=== PATIENT | male | born 1965 | race Caucasian/White ===

== ENCOUNTER 2018-12-31 23:37 | Emergency (ER) | payer BC, SELFPAY ==
[2018-12-31 23:38] VITALS: BP 148/74; BP 156/93; PULSE 80; PULSE 81; RESP 18; RESP 19; TEMP 35.9; O2SAT 96; BMI 48.7
--- NOTE | 2019-01-01 00:41 | ED.VIS.GEN ---
History of Present Illness Chief Complaint: Upper Extremity Injury Narrative: Patient is a 53-year-old male who presents with right shoulder pain. This is been present for 4 days. He reports a history 2 years ago when he was stepping out of a truck and was holding onto the With his right arm. However he had this had no recent injury. He had no injury at the onset of symptoms. His pain was worse tonight. It is sharp. It is relieved by resting it and abduction. He indicates his pain is right at his AC joint. No numbness tingling or weakness. Past Medical History - Allergies and Home Meds Allergies/Adverse Reactions: Allergies No Known Allergies Allergy (Verified 12/31/18 23:38) Primary Care Physician: Pascual Allen MD [Primary Care Provider] - Past Medical History: - - Hypertension Smoking Status: Former smoker Review of Systems All systems negative except as indicated General: Denies: Fever Cardiovascular: Denies: Chest pain Respiratory: Denies: Dyspnea Musculoskeletal: Reports: Extremity Pain Physical Exam Vital Signs/Narrative: Vital Signs Temp Pulse Resp BP Pulse Ox 12/31/18 23:38 96.7 F L 80 18 156/93 H 96 Inital Vital Signs reviewed: Yes General: Well nourished Head: Normocephalic Eyes: EOMI ENT: Moist mucous membranes Neck: Supple Cardiovascular: Regular rate, Regular rhythm Respiratory: No distress, CTA bilaterally Extremities: - - Right shoulder tenderness near the AC joint tenderness active full range of motion no deformity brisk capillary refill with normal sensation to light touch Skin: Normal color Neurological: Alert Diagnostic/Tx/Re-eval Impressions Shoulder X-Ray 01/01/19 00:45 IMPRESSION: Normal right shoulder. at 0122 Reported and signed by: Tong Johnson MD Electronically Signed: Tong Johnson MD at 1:20 EDT Tel , Service support , 01/01/19 00:45 Shoulder min 2 Views [RAD] Stat - Medical Decision Making Patient was given naproxen for pain. Right shoulder x-ray was obtained which is normal. Patient was advised on supportive care. He was advised to follow-up with his primary care physician. ED Disposition - Plan for ED Patient: Disposition: Home or Assisted Living Diagnosis: Shoulder pain Instructions: SHOULDER PAIN (Uncertain Cause) Prescriptions: Naproxen [Naprosyn] 500 mg PO BID #20 tab Prescription Printed Referrals: Pascual Allen MD [Primary Care Provider] -
--- NOTE | 2019-01-01 00:45 | RAD_ITS ---
HISTORY: INCREASING RT SHOULDER PAIN FOR THE PAST 4 DAYS Exam: Right Shoulder COMPARISON: None FINDINGS: # of images incl. paperwork: 4 XR Shoulder Min 2 Views: The humeral head is well-positioned within the glenoid fossa. No fracture or subluxation. The acromioclavicular joint is normal. The adjacent chest is unremarkable. RAD/Shoulder min 2 Views IMPRESSION: Normal right shoulder. at 0122 Reported and signed by: Tong Johnson MD Electronically Signed: Tong Johnson MD at 1:20 EDT Tel , Service support ,
[2019-01-01] MEDS: Naproxen 500 MG Tablet PO (00:48)
== END 2019-01-01 01:51 | disposition home or self-care (01) ==
PROVIDERS: Emergency Provider Emergency Medicine; Family Provider Internal Medicine; PCP Internal Medicine
DX: M25.511 Pain in right shoulder (principal); I10 Essential (primary) hypertension; Z79.899 Other long term (current) drug therapy; Z87.891 Personal history of nicotine dependence
CPT/HCPCS: 73030; 99283

== ENCOUNTER 2023-12-25 11:54 | Inpatient (IN) | payer OTHER, SELFPAY ==
[2023-12-25 11:54] VITALS: BP 106/74; PULSE 90; RESP 14; TEMP 36.8; O2SAT 95; BMI 46.2
--- NOTE | 2023-12-25 12:11 | EX.ED.DYSGE1 ---
HPI <CHERISE Callejas - Last Filed: 12/25/23 15:54> History of Present Illness Chief Complaint: Abn Labs Narrative Narrative: Patient is a 58-year-old male with history obesity, hypertension hyperlipidemia who presents to the emergency department for abnormal lab values. Patient has been having right upper quadrant abdominal pain for the last 2 months. The pain has been getting much more severe. Patient states it is now constant, he went to his physician yesterday, they did some laboratory values and had a outpatient CT scan scheduled. Patient was called by the doctor's office to state that he had a very high white blood cell count to go to the emergency department. Patient dates the pain is now unbearable, and he is here for evaluation. He denies any nausea or vomiting. Denies any fever or chills. PFSH <CHERISE Callejas - Last Filed: 12/25/23 15:54> [facility] Medical History (Updated 12/25/23 @ 16:[address] Daniel Villalpando, DO) Encounter for examination required by Department of Transportation (DOT) Home Medications ?Medication ?Instructions ?Recorded ?Last Taken ?Type lisinopril 20 mg tablet 20 mg PO DAILY 12/31/18 12/31/18 History naproxen 500 mg tablet 500 mg PO BID #20 tabs 01/01/19 Unknown Rx hydrochlorothiazide 25 mg tablet 25 mg PO DAILY 12/25/23 Unknown History Allergy/AdvReac Type Severity Reaction Status Date / Time No Known Allergies Allergy Verified 12/25/23 11:55 Social History Smoking Status: Former smoker ROS <CHERISE Callejas - Last Filed: 12/25/23 15:54> ROS ED ROS Narrative Constitutional: Negative for fever, chills, weight loss, weakness Eyes: Negative for vision loss, vision change, double vision ENT: Negative for any sore throat, ear pain, congestion Cardiovascular: Negative for any chest pain, tightness, palpitations Respiratory: Negative for any cough, sputum production, hemoptysis, dyspnea, dyspnea on exertion, orthopnea Gastrointestinal: Negative for any nausea, vomiting, diarrhea, constipation, blood in stool, blood in vomit. Positive for abdominal pain : Negative for any urinary frequency, dysuria, retention, blood in urine Muscle skeletal: Negative for any neck pain, back pain Neurological: Negative for any headache, syncope, dizziness Skin: Negative for any rashes, itching, abrasions, lacerations Psychiatric: Negative for any depression, anxiety, stress, suicidal ideation, homicidal ideation Hematologic: Negative for any excessive bruising, easy bleeding EXAM <CHERISE Callejas - Last Filed: 12/25/23 15:54> Physical Exam Narrative Exam Narrative: Vital signs reviewed. Patient appears uncomfortable, patient is constantly wincing, grabbing his right upper quadrant. HEET: Head normocephalic atraumatic, TMs clear bilaterally. Posterior pharynx is clear, moist mucous membranes. Nares clear bilaterally. Neck: Supple with no lymphadenopathy or tenderness. No signs of meningismus. Cardiac: Regular rate and rhythm no murmurs gallops or rubs, equal peripheral pulses bilaterally. Respiratory: Lungs clear to auscultation bilaterally. No chest tenderness. Abdomen: Patient's abdomen is firm, patient does have guarding, significant tenderness to any palpation to the epigastric area to the right upper to right lateral abdomen. Extremities: No peripheral edema, no signs of gross trauma or deformity. Active full range of motion of all extremities. Neuro: Cranial nerves II through XII intact, no focal neurological deficits. Skin: Clean dry and intact with no rash, purpura, petechiae, vesicles or pustules. Backs/flank: No CVA tenderness, no midline spinal tenderness, no deformity. Psych: Normal mood and affect. No SI, HI or acute psychosis. Const Vital Signs: 12/25/23 11:54 12/25/23 12:30 12/25/23 14:09 Temperature 98.3 F Temperature Source Temporal Pulse Rate 90 86 Respiratory Rate 14 15 Respiratory Pattern Normal Blood Pressure 106/74 129/91 H Blood Pressure Mean 84 103 Pulse Ox 95 Oxygen Delivery Method Room Air Positive well nourished, well developed and obese General Appearance ED: well developed Nutritional Appearance: obese <Dr. Daniel Villalpando DO - Last Filed: 12/25/23 16:14> Physical Exam Const Vital Signs: 12/25/23 11:54 12/25/23 12:30 12/25/23 14:09 Temperature 98.3 F Temperature Source Temporal Pulse Rate 90 86 Respiratory Rate 14 15 Respiratory Pattern Normal Blood Pressure 106/74 129/91 H Blood Pressure Mean 84 103 Pulse Ox 95 Oxygen Delivery Method Room Air MDM <Feliberto Kam [employer] - Last Filed: 12/25/23 15:54> [facility] Lab Data Labs: Laboratory Results - last 24 hr 12/25/23 12:20 WBC 23.1 H RBC 4.90 Hgb 11.8 L Hct 38.1 L MCV 77.8 L MCH 24.1 L MCHC 31.0 L RDW Std Deviation 47.5 H RDW Coeff of Tiffany 16.9 H Plt Count 369 MPV 9.1 Immature Gran % (Auto) 0.600 Neut % (Auto) 82.4 H Lymph % (Auto) 9.4 L Leslie % (Auto) 6.2 Eos % (Auto) 0.7 Baso % (Auto) 0.7 Absolute Neuts (auto) 19.0 H Absolute Lymphs (auto) 2.16 Nucleated RBC % 0 PT 15.3 H INR 1.2 Sodium 136 Potassium 4.0 Chloride 103 Carbon Dioxide 26.0 Anion Gap 8 BUN 34 H Creatinine 1.59 H Estim Creat Clear Calc 71.91 Est GFR (MDRD) Af Amer 58 L Est GFR (MDRD) Non-Af 48 L BUN/Creatinine Ratio 21.4 H Glucose 97 Lactic Acid 2.2 H* Calcium 12.7 H* Total Bilirubin 0.40 Direct Bilirubin 0.16 AST 40 H ALT 52 Alkaline Phosphatase 218 H Total Protein 7.8 Albumin 2.8 L Globulin 5.0 H Lipase 36 PTH Intact 8.3 L Radiography Diagnostic Testing: Clinical Impression(s) from Imaging Studies Abdomen/Pelvis CT 12/25/23 12:12 IMPRESSION: Hepatomegaly. Elevation of the right hemidiaphragm. Multiple masses in the liver. Large mass in the region of the cecum. A neoplastic process with metastatic deposits should be ruled out. Small right pleural effusion. Electronically Signed: Zana Amezquita MD at 13:54 EDT , Treatment and Re-Evaluation :: Differential diagnosis includes however is not limited to: Acute cholecystitis, free air, bowel obstruction, mass, pancreatitis,, hernia Patient does appear to be in mild to moderate amount of distress secondary to pain in his right upper quadrant. Presenting to the emergency department for elevated white blood count, ongoing abdominal pain. Secondary the patient's discomfort, patient will receive a CT scan of the abdomen pelvis IV contrast, IV fluids, Zofran and morphine will be ordered. Patient will receive a full abdominal lab workup including CBC BMP liver panel lipase as well as lactic acid. All radiologic examinations were read, reviewed by the emergency department attending. From these reads, a plan of care will be put in place. Patient will need to be reevaluated. Patient's laboratory values show a significant leukocytosis with white blood count of 23.1, hemoglobin 11.8, patient's chemistries show a BUN of 34, creatinine of 1.59, lactic acid slightly elevated 2.2 with a calcium of 12.7, AST of 40, alkaline phosphatase of 218, lipase was negative. Patient was given IV morphine, IV Zofran, CT scan of the abdomen pelvis will be obtained. Patient did receive 1 blood culture. Patient will be redosed with IV morphine. Patient CT scan of the abdomen pelvis shows hepatomegaly, elevation of the right Heema diaphragm, multiple masses in the liver. Large mass in the region of the cecum, a neoplastic process with metastatic deposits should be ruled out. Small right pleural effusion. I did speak with the patient regarding this, patient will need to be admitted to hospital for pain control. I will reach out to the hospitalist. Hospital admit the patient. <Dr. Daniel Villalpando, DO - Last Filed: 12/25/23 16:14> [facility] Lab Data Attestation: I reviewed the patient's lab results. Labs: Laboratory Results - last 24 hr 12/25/23 12:20 WBC 23.1 H RBC 4.90 Hgb 11.8 L Hct 38.1 L MCV 77.8 L MCH 24.1 L MCHC 31.0 L RDW Std Deviation 47.5 H RDW Coeff of Tiffany 16.9 H Plt Count 369 MPV 9.1 Immature Gran % (Auto) 0.600 Neut % (Auto) 82.4 H Lymph % (Auto) 9.4 L Leslie % (Auto) 6.2 Eos % (Auto) 0.7 Baso % (Auto) 0.7 Absolute Neuts (auto) 19.0 H Absolute Lymphs (auto) 2.16 Nucleated RBC % 0 PT 15.3 H INR 1.2 Sodium 136 Potassium 4.0 Chloride 103 Carbon Dioxide 26.0 Anion Gap 8 BUN 34 H Creatinine 1.59 H Estim Creat Clear Calc 71.91 Est GFR (MDRD) Af Amer 58 L Est GFR (MDRD) Non-Af 48 L BUN/Creatinine Ratio 21.4 H Glucose 97 Lactic Acid 2.2 H* Calcium 12.7 H* Total Bilirubin 0.40 Direct Bilirubin 0.16 AST 40 H ALT 52 Alkaline Phosphatase 218 H Total Protein 7.8 Albumin 2.8 L Globulin 5.0 H Lipase 36 PTH Intact 8.3 L Radiography Diagnostic Testing: Clinical Impression(s) from Imaging Studies Abdomen/Pelvis CT 12/25/23 12:12 IMPRESSION: Hepatomegaly. Elevation of the right hemidiaphragm. Multiple masses in the liver. Large mass in the region of the cecum. A neoplastic process with metastatic deposits should be ruled out. Small right pleural effusion. Electronically Signed: Zana Amezquita MD at 13:54 EDT , Treatment and Re-Evaluation :: Differential diagnosis includes however is not limited to: Acute cholecystitis, free air, bowel obstruction, mass, pancreatitis,, hernia Patient does appear to be in mild to moderate amount of distress secondary to pain in his right upper quadrant. Presenting to the emergency department for elevated white blood count, ongoing abdominal pain. Secondary the patient's discomfort, patient will receive a CT scan of the abdomen pelvis IV contrast, IV fluids, Zofran and morphine will be ordered. Patient will receive a full abdominal lab workup including CBC BMP liver panel lipase as well as lactic acid. All radiologic examinations were read, reviewed by the emergency department attending. From these reads, a plan of care will be put in place. Patient will need to be reevaluated. Patient's laboratory values show a significant leukocytosis with white blood count of 23.1, hemoglobin 11.8, patient's chemistries show a BUN of 34, creatinine of 1.59, lactic acid slightly elevated 2.2 with a calcium of 12.7, AST of 40, alkaline phosphatase of 218, lipase was negative. Patient was given IV morphine, IV Zofran, CT scan of the abdomen pelvis will be obtained. Patient did receive 1 blood culture. Patient will be redosed with IV morphine. Patient CT scan of the abdomen pelvis shows hepatomegaly, elevation of the right Heema diaphragm, multiple masses in the liver. Large mass in the region of the cecum, a neoplastic process with metastatic deposits should be ruled out. Small right pleural effusion. I did speak with the patient regarding this, patient will need to be admitted to hospital for pain control. I will reach out to the hospitalist. Hospital admit the patient. Attending note: I have personally performed a face to face assessment of the patient and have reviewed the DELTA note. I personally made/approved the management plan and take responsibility for the patient management. I performed a substantive portion of the visit including all aspects of the following. My bai findings include: Referred him from PCP for elevated white count after being seen yesterday with lab work. He has been having upper abdominal pain for the past 2 months. Reporting weight loss. No fevers or chills. No abdominal surgeries. He had a plan outpatient CT scan. No history of colonoscopies however had Cologuard in the past. Denies bloody stools. Exams uncomfortable tender palpation epigastric right upper quadrant. Nontoxic. IV established for abdominal labs, fluids morphine was given. CT scan ordered noted concerning for multiple masses of the liver including a cecal mass. Additional pain medications required. With intractable pain with new concerns for cancer, discussed with hospitalist for admission. Discharge Plan Dx/Rx/DC Orders Clinical Impression: Liver masses, Cecum mass, Intractable abdominal pain, Leukocytosis Disposition Disposition: Acute Care Hospital [facility] Discharge Date/Time: 12/25/23 15:55
--- NOTE | 2023-12-25 12:12 | CT_ITS ---
STUDY: CT ABDOMEN AND PELVIS WITH CONTRAST REASON FOR EXAM: Male, 58 years old. 2 month history of right upper quadrant pain. Elevated white cell count. RADIATION DOSAGE (If Supplied By Facility): CTDIvol = ( 27.03 ) mGy, DLP = ( 2604.76 ) mGycm TECHNIQUE: Transaxial images were obtained from the dome of the diaphragm to the symphysis pubis without oral contrast. IV 100mL Isovue-370 was administered. Sagittal and coronal images were reconstructed. Individualized dose optimization techniques were used for this CT. COMPARISON: None. FINDINGS: Elevation of the right hemidiaphragm. Small right pleural effusion. Calcified granuloma in the right lower lobe. Calcified right hilar lymph nodes. Minimal coronary calcification. Diffuse hepatomegaly. There are several large hypodense masses within the liver. There is also evidence of a 2.6 cm x 2.4 cm nodule in the superior medial aspect of the right lobe of the liver. There is fatty infiltration of the liver. Normal gallbladder and extrahepatic biliary system. There are multiple benign calcified granulomata of the spleen. Normal pancreas. Normal bilateral adrenal glands. Normal right kidney. Normal left kidney. Normal visualized stomach. Normal small intestine. There is evidence of a 7 cm x 11.1 cm x 8.7 cm heterogeneous mass in the cecum. A primary neoplastic process should be ruled out with metastasis to the liver. The appendix is visualized and appears normal. Normal abdominal aorta. Normal inferior vena cava. Normal retroperitoneum. Normal urinary bladder. There is a small umbilical hernia containing fat. There are diffuse degenerative changes of the visualized lumbar spine. CT/Abdomen/Pelvis W IV Cont ONLY IMPRESSION: Hepatomegaly. Elevation of the right hemidiaphragm. Multiple masses in the liver. Large mass in the region of the cecum. A neoplastic process with metastatic deposits should be ruled out. Small right pleural effusion. Electronically Signed: Zana Amezquita MD at 13:54 EDT ,
[2023-12-25] MEDS: 0.9% Normal Saline (1000mL) 1,000 ML 999 ML IV (12:19)
[2023-12-25] MEDS: Morphine 4 MG/ML Syringe IV ×2 (12:20→14:13)
[2023-12-25] MEDS: Ondansetron 4 MG/2 ML Vial IV ×2 (12:20→21:31)
[2023-12-25 12:30] LABS: Absolute Lymphocyte Count 2.16 X10^3/uL (0.83-4.51); Basophil# 0.16 X10^3/uL; Basophil% 0.7 % (0-1); Eosinophil# 0.17 X10^3/uL; Eosinophils% 0.7 % (0-5); Hematocrit 38.1 % (40-54); Hemoglobin 11.8 g/dL (13.0-16.5); Lymphocyte # 2.16 X10^3/ul (0.83-4.51); Lymphocyte % 9.4 % (19-41); Mean Corpuscular Hgb 24.1 pg (27.0-32.0); Mean Corpuscular Volume 77.8 fL (80-94); Mean Platelet Vol. 9.1 fl (6.2-12.0); Monocyte# 1.43 X10^3/uL; Monocyte% 6.2 % (0-10); NRBC Flagged by Analyzer 0 % (0-5); Neutrophil # 19.04 X10^3/uL (2.7-7.7); Neutrophil % 82.4 % (47-70); Platelet Count 369 K/mm3 (150-450); RBC Distribution Width CV 16.9 % (11.6-14.6); RBC Distribution Width SD 47.5 fl (35.1-43.9); White Blood Count 23.1 K/mm3 (4.4-11.0)
[2023-12-25 12:57] LABS: AST(SGOT) 40 U/L (15-37); Alanine Aminotransfer ALT/SGPT 52 U/L (16-61); Albumin, Serum 2.8 g/dL (3.2-5.0); Alkaline Phosphatase 218 U/L (45-117); Anion Gap 8 (5-15); BUN 34 mg/dL (7-18); BUN/Creat Ratio 21.4 RATIO (10-20); Bilirubin, Direct 0.16 mg/dL (0.00-0.30); Calcium,Total 12.7 mg/dL (8.5-10.1); Chloride 103 mmol/L (98-107); Creatinine, Serum 1.59 mg/dL (0.70-1.30); EST Glomerular Filtration Rate 48 mL/min (>60); Est Glom Filt Rate - Afr Amer 58 mL/min (>60); Estimated Creatinine Clearance 71.91 ml/min; Glucose 97 mg/dL (74-106); Lactic Acid 2.2 mmol/L (0.4-1.9); Lipase 36 U/L (13-75); Protein, Total 7.8 g/dL (6.4-8.2); Sodium Level 136 mmol/L (136-145)
[2023-12-25 13:28] LABS: International Normalized Ratio 1.2; Prothrombin Time (Protime)PT. 15.3 SECONDS (11.7-14.9)
[2023-12-25 14:09] VITALS: BP 129/91; PULSE 86; RESP 15
--- NOTE | 2023-12-25 15:00 | HP.PCM.HOS_ITS ---
HPI - General General Date of Service: 12/25/23 Chief Complaint: Abdominal Pain HPI Narrative NADEEN DONAHUE, is a 58-year-old male history of obesity, hypertension, hyperlipidemia who presented [facility] ED due to lab values. Patient is in having right upper quadrant abdominal pain for 2 months and has been getting more and more severe and is now constant. Went to PCP yesterday and they checked his labs and he had an outpatient CT scan scheduled however given his very high white blood cell count he was advised to go to the emergency department. Pain is now unbearable and he is here for evaluation. In the ED patient has white blood cell count of 23 with left shift, also has hypercalcemia with calcium of 12.[address] obtained which showed liver masses and cecal mass. Hospitalist contacted for admission for pain control. Patient evaluated at bedside, reports that he has had some weight loss and this worsening pain over 2 months with constipation which is abnormal for him, last had small bowel movement last night. Aside from the pain denies any fevers or chills, no burning on urination or diarrhea, no cough, no lesions, no other infectious symptoms whatsoever. [facility] Medical History (Updated 12/25/23 @ 15:[address] Naina Avelar MD) Encounter for examination required by Department of Transportation (DOT) Home Medications ?Medication ?Instructions ?Recorded ?Last Taken ?Type lisinopril 20 mg tablet 20 mg PO DAILY 12/31/18 12/31/18 History naproxen 500 mg tablet 500 mg PO BID #20 tabs 01/01/19 Unknown Rx Allergy/AdvReac Type Severity Reaction Status Date / Time No Known Allergies Allergy Verified 12/25/23 11:55 Social History Smoking Status: Former smoker ROS ROS Narrative General: Denies fever/chills HENT: Denies headache, denies stuffy nose, denies sore throat EYES: Denies changes in vision Resp: Denies cough, denies shortness of breath Cardiac: Denies chest pain GI: No nausea or vomiting, some right upper quadrant abdominal pain, constipation : Denies changes in urination Extremity: Denies swelling MSK: Denies weakness Neuro: Denies any numbness/tingling Heme: Denies any bleeding or bruising Skin: Denies rashes Psychiatric: No complaints voiced Vital Signs Vital Signs Vital Signs: 12/25/23 11:54 12/25/23 12:30 12/25/23 14:09 Temperature 98.3 F Temperature Source Temporal Pulse Rate 90 86 Respiratory Rate 14 15 Respiratory Pattern Normal Blood Pressure 106/74 129/91 H Blood Pressure Mean 84 103 Pulse Ox 95 Oxygen Delivery Method Room Air Weight Weight: 141.9 kg Body Mass Index (BMI) 46.2 Physical Exam Narrative General: Alert, oriented, no apparent distress HEENT: Atraumatic, normocephalic Eyes: Anicteric, normal conjunctiva, extraocular movements grossly intact Neck: Supple Respiratory: Clear to auscultation bilaterally, normal respiratory effort Cardiovascular: Regular rate and rhythm GI: Significant tenderness in right upper quadrant, no rebound, guarding, rigidity Extremities: No edema Musculoskeletal: Moving all extremities Neuro: No overt focal neurological deficits Skin: No rashes appreciated Psych: Cooperative Results Lab / Micro Data 12/25/23 12:20 12/25/23 12:20 Labs: Laboratory Results - last 24 hr 12/25/23 12:20: WBC 23.1 H, RBC 4.90, Hgb 11.8 L, Hct 38.1 L, MCV 77.8 L, MCH 24.1 L, MCHC 31.0 L, RDW Std Deviation 47.5 H, RDW Coeff of Tiffany 16.9 H, Plt Count 369, MPV 9.1, Immature Gran % (Auto) 0.600, Neut % (Auto) 82.4 H, Lymph % (Auto) 9.4 L, [place] % (Auto) 6.2, Eos % (Auto) 0.7, Baso % (Auto) 0.7, Absolute Neuts (auto) 19.0 H, Absolute Lymphs (auto) 2.16, Nucleated RBC % 0, PT 15.3 H, INR 1.2, Sodium 136, Potassium 4.0, Chloride 103, Carbon Dioxide 26.0, Anion Gap 8, BUN 34 H, Creatinine 1.59 H, Estim Creat Clear Calc 71.91, Est GFR (MDRD) Af Amer 58 L, Est GFR (MDRD) Non-Af 48 L, BUN/Creatinine Ratio 21.4 H, Glucose 97, Lactic Acid 2.2 H*, Calcium 12.7 H*, Total Bilirubin 0.40, Direct Bilirubin 0.16, AST 40 H, ALT 52, Alkaline Phosphatase 218 H, Total Protein 7.8, Albumin 2.8 L, Globulin 5.0 H, Lipase 36 Imaging Radiology Impression Abdomen/Pelvis CT 12/25/23 12:12 IMPRESSION: Hepatomegaly. Elevation of the right hemidiaphragm. Multiple masses in the liver. Large mass in the region of the cecum. A neoplastic process with metastatic deposits should be ruled out. Small right pleural effusion. Electronically Signed: Zana Amezquita MD at 13:54 EDT , Assessment & Plan Assessment/Plan (1) Liver masses: PLAN: Plan #RUQ abdominal pain 2/2 Liver masses and cecal mass -Liver masses and cecal mass seen on CT scan -Discussed with Dr. Arellano with oncology on-call -It was recommended to order CT-guided biopsy, focus on pain control, consult surgery to do lower endoscopy as he may ultimately require surgery as well and he felt that this would be the preferred service to be able to do both necessary -Discussed with surgery on-call, will prep patient tonight for possible colonoscopy tomorrow -CT-guided biopsy also ordered -Pain control # Hypercalcemia -Possibly malignant in nature given liver and cecal masses -IV fluids -Check PTH, vitamin D, Phos -Recheck calcium later this evening after fluids, if remains elevated may need zalendronate or formulary equivalent -Presently not having symptoms aside from some constipation which may be due to his mass # Leukocytosis -Unclear etiology, has leukocytosis but has 0 infectious symptoms -IV fluids, will check blood culture and UA/ucx but will hold off on any empiric antibiotics unless infectious signs or symptoms prevent themselves or culture positive # Elevated creatinine, GAVINO versus CKD -Creatinine 1.59 but unclear baseline -Does have elevated BUN so suspect this may be higher than baseline -IV fluids -Repeat in a.m. -Avoid nephrotoxic agents #Morbid obesity -BMI documented as 46.2 kg/m? at time of admission -Complicates treatment, prognosis, outcomes -Recommend weight loss and lifestyle changes # Documented history of hypertension -Med rec not yet verified -Previously was on lisinopril, patient still on this will hold given elevated creatinine Time spent in the patient's overall evaluation,decision-making process, review of diagnostic data, adjustment of management, discussion with other providers, nursing nursing and ancillary staff involved in patient's care documentation, 57 minutes Charges/Coding Visit Charges Inpatient E&M: 65435 Init Hosp L2
[2023-12-25 15:33] VITALS: BP 117/62; PULSE 89; RESP 14; TEMP 36.6; O2SAT 98
[2023-12-25 15:35] VITALS: BP 117/62; PULSE 89; RESP 14; TEMP 36.7; O2SAT 89
[2023-12-25 16:01] LABS: PTHIN 8.3 pg/mL (18.4-80.1)
[2023-12-25 16:13] VITALS: BMI 46.2
[2023-12-25 16:24] LABS: Reflex Lactate? Y
[2023-12-25 16:25] LABS: Phosphorus 3.2 mg/dL (2.5-4.9)
[2023-12-25 16:39] VITALS: BP 125/51; PULSE 86; RESP 16; TEMP 36.5; O2SAT 94
[2023-12-25 17:15] LABS: Lactic Acid 1.9 mmol/L (0.4-1.9); Vitamin D,25 Hydroxy 32.9 ng/mL
[2023-12-25] MEDS: 0.9% Normal Saline (1000mL) 1,000 ML 100 ML IV (18:29)
[2023-12-25] MEDS: Bisacodyl 5 MG Tablet 20 MG PO (18:32)
[2023-12-25] MEDS: 0.9% Saline Lock 10 ML Syringe IV ×2 (18:42→21:31)
[2023-12-25] MEDS: Acetaminophen 325 MG Tablet 650 MG PO (18:44)
--- NOTE | 2023-12-25 19:06 | CON.PCM.SX_ITS ---
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 He was admitted for pain control. CT-guided biopsy of the liver masses has been recommended. Surgical consult was obtained regarding cecal mass and possible colonoscopy. At this point I would recommend initiating bowel prep which is just beginning this evening. Given the fact that he only produces a bowel movement every 3 to 4 days, I am somewhat skeptical whether or not he will be able to be sufficiently prepped for colonoscopy for tomorrow. We will reassess his progress in a.m. regarding his bowel prep and then make a decision as far as scheduling colonoscopy. I would certainly agree with doing a CT-guided biopsy of his liver masses. Tissue diagnosis from the liver may be sufficient to establish the diagnosis. Will continue to follow and advise accordingly. HPI Consult Data Date of Consult: 12/25/23 HPI Narrative Reason for Consultation: Cecal mass/liver metastasis HPI Narrative: NADEEN DONAHUE, is a 58 M who presents to the emergency room earlier today due to right sided abdominal pain and abnormal lab values. Patient has been having progressively worsening abdominal pain on the right side of his abdomen for the past several months. He states that he really has not been able to eat and is actually lost about 40 pounds. Patient's pain seems to be much more severe and constant. Patient saw his PCP recently who ordered some blood work and noted a elevated white blood cell count. He was then advised to present to the emergency room. He was seen evaluated by the ER staff. He underwent blood work that showed a white count of 23,000 as well as an elevated calcium level. CT scan showed multiple large liver masses as well as a very large cecal mass. He was subsequently admitted. Hematology oncology was consulted. Surgery consult was obtained for the cecal mass and possible colonoscopy as well. CT-guided biopsy of the liver masses were also recommended by oncology. Patient is currently stable at bedside. He continues to have right sided abdominal pain which seems to be reasonably well-controlled at the present time as he appeared fairly comfortable. He states that his bowel movements normally have been daily however more recently he has a bowel movement about every 3 to 4 days. He denies any fevers or chills. [facility] Medical History Encounter for examination required by Department of Transportation (DOT) Home Medications ?Medication ?Instructions ?Recorded ?Last Taken ?Type lisinopril 20 mg tablet 20 mg PO DAILY 12/31/18 12/31/18 History naproxen 500 mg tablet 500 mg PO BID #20 tabs 01/01/19 Unknown Rx hydrochlorothiazide 25 mg tablet 25 mg PO DAILY 12/25/23 Unknown History Allergy/AdvReac Type Severity Reaction Status Date / Time No Known Allergies Allergy Verified 12/25/23 11:55 Family History unable to obtain Social History Smoking Status: Former smoker Physical Exam Const alert, oriented x3 and no apparent distress General Appearance: cooperative Nutritional Appearance: obese HEENT normocephalic Eyes PERRL GI GI Narrative: Abdomen is soft and quite obese. He has moderate tenderness all throughout the right side of his abdomen. No rebound or guarding. Lab / Micro Data 12/25/23 12:20 12/25/23 12:20 Labs: Laboratory Results - last 24 hr 12/25/23 12:20: WBC 23.1 H, RBC 4.90, Hgb 11.8 L, Hct 38.1 L, MCV 77.8 L, MCH 24.1 L, MCHC 31.0 L, RDW Std Deviation 47.5 H, RDW Coeff of Tiffany 16.9 H, Plt Count 369, MPV 9.1, Immature Gran % (Auto) 0.600, Neut % (Auto) 82.4 H, Lymph % (Auto) 9.4 L, [place] % (Auto) 6.2, Eos % (Auto) 0.7, Baso % (Auto) 0.7, Absolute Neuts (auto) 19.0 H, Absolute Lymphs (auto) 2.16, Nucleated RBC % 0, PT 15.3 H, INR 1.2, Sodium 136, Potassium 4.0, Chloride 103, Carbon Dioxide 26.0, Anion Gap 8, BUN 34 H, Creatinine 1.59 H, Estim Creat Clear Calc 71.91, Est GFR (MDRD) Af Amer 58 L, Est GFR (MDRD) Non-Af 48 L, BUN/Creatinine Ratio 21.4 H, Glucose 97, Lactic Acid 2.2 H*, Calcium 12.7 H*, Phosphorus 3.2, Total Bilirubin 0.40, Direct Bilirubin 0.16, AST 40 H, ALT 52, Alkaline Phosphatase 218 H, Total Protein 7.8, Albumin 2.8 L, Globulin 5.0 H, Lipase 36, PTH Intact 8.3 L 12/25/23 16:35: Lactic Acid 1.9, Vitamin D 25-Hydroxy 32.9 Imaging Radiology Impression Abdomen/Pelvis CT 12/25/23 12:12 IMPRESSION: Hepatomegaly. Elevation of the right hemidiaphragm. Multiple masses in the liver. Large mass in the region of the cecum. A neoplastic process with metastatic deposits should be ruled out. Small right pleural effusion. Electronically Signed: Zana Amezquita MD at 13:54 EDT , Charges/Coding Visit Charges Inpatient E&M: 66839 Init Hosp L3
[2023-12-25 19:08] LABS: Anion Gap 7 (5-15); BUN 33 mg/dL (7-18); Calcium,Total 12.5 mg/dL (8.5-10.1); Chloride 102 mmol/L (98-107); EST Glomerular Filtration Rate 51 mL/min (>60); Est Glom Filt Rate - Afr Amer 62 mL/min (>60); Estimated Creatinine Clearance 76.22 ml/min; Glucose 124 mg/dL (74-106); Potassium 3.8 mmol/L (3.5-5.1); Sodium Level 135 mmol/L (136-145)
[2023-12-25] MEDS: Polyethylene Glycol 3350 BOWEL PREP PO (19:56)
--- NOTE | 2023-12-25 19:58 | PCM.HOSP.N ---
Hospitalist Note Patient with continued moderate hypercalcemia despite IV fluids, will give dose of 60 of pamidronate
[2023-12-25 20:14] VITALS: BP 105/59; PULSE 88; RESP 16; TEMP 36.6; O2SAT 94
[2023-12-25] MEDS: Morphine 2 MG/ML Syringe IV (21:31)
[2023-12-25] MEDS: Pamidronate Disodium 60 MG in 0.9% Normal Saline (500mL Bag) 500 ML 250 MG IV (21:31)
[2023-12-25] MEDS: Enoxaparin 40 MG/0.4 ML Syringe SC (21:37)
[2023-12-25] MEDS: Senna/Docusate Sodium 1 Tablet 2 TABLET PO (21:37)
[2023-12-26] VITALS (18 sets, daily range): BP systolic 98–134; BP diastolic 45–64; PULSE 62–110; RESP 14–32; TEMP 36.4–37.2; O2SAT 92–99
--- NOTE | 2023-12-26 | ASPIGT_PTH ---
PATIENT: NADEEN DONAHUE LOC: MS3 U#:[id number] AGE/SX: 58/M [place] [facility] [place]: Dr. Gus Baez DO : 1965 BED: 1 DIS: 12/27/2023 SPEC #: [id number] RECD: 12/26/23 11:48 STATUS: VENICE REQ #: [id number] TONEY: 12/26/23 00:[address]: Aubrey Dixon DEPT: SURGICAL PATHOLOGY RECD BY: Gene Juarez ENTERED: 12/26/23 11:48 SP TYPE: ASP RAD OTHR DR: MD Dr. Santy Starkey MD Dr. 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 See comment. 01/02/2024 COMMENT The specimen is evaluated at the time of biopsy by Dr. Daniels. Immediate Evaluation = Atypical cells noted. Immunohistochemistry ([id number]) supports the above diagnosis. The specimen is sent to [facility] for expert opinion, reviewed by Dr. Jones and the above diagnosis is rendered. Dr. Jones also commented the immunohistochemical profile is not specific for tumor phenotype or origin. The complete report is viewable in the patient's EMR. Molecular studies on the tumor be performed if clinically indicated. Please notify the laboratory if it is needed. Case has been reviewed in consultation with Dr. Bishop who concurs with the above diagnosis. IDC:AM MICROSCOPIC DESCRIPTION Slides are reviewed. GROSS DESCRIPTION Received in fixative is one container labeled with the patient's name and designated Liver biopsy. The specimen consists of multiple irregular fragments of light lou soft tissue that in aggregate measure 1.0 x 0.2 x <0.1cm. The specimen is totally submitted in one cassette. SJ.mr 12/26/2023 TC:0 CPT:91070,56060
--- NOTE | 2023-12-26 | FLU_PTH ---
PATIENT: NADEEN DONAHUE LOC: MS3 U#:[id number] AGE/SX: 58/M ROOM: [facility] [place]12/25/[address]: Dr. Gus Baez DO : 1965 BED: 1 DIS: 12/27/2023 SPEC #: [id number] RECD: 12/26/23 11:48 STATUS: VENICE REQ #: [id number] TONEY: 12/26/23 00:[address]: Aubrey Dixon DEPT: CYTOLOGY RECD BY: Gene Juarez ENTERED: 12/26/23 11:49 SP TYPE: Fluid OTHR DR: MD Dr. Santy Starkey MD Dr. Victor Velasquez, MD Tissues: Liver, NOS Procedures: Special Stain Group II Surgery Specimen Level IV Surgery Specimen Level V Cytospin Fluid HEADER OPERATION: CT guided liver biopsy PRE-OP DIAGNOSIS: Liver mass TISSUE SUBMITTED: 18 gauge x 5 cores DIAGNOSIS CYTOLOGY Liver mass fluid (cytospin and cellblock): Rare necrotic tumor cells noted in the background of abscess formation. See comment. 01/02/2024 COMMENT Please also make reference to additional specimen [id number] liver mass, core biopsy with diagnosis of metastatic poorly differentiated malignant neoplasm with epithelioid and spindle cell features, high grade sarcoma. Case has been reviewed in consultation with Dr. Bishop who concurs with the above diagnosis. IDC:AM CYTOLOGY STUDY Slides are reviewed. CYTOLOGY GROSS Received is 50 ml of red cloudy fluid labeled with the patient's name and and designated per the requisition as Liver mass. Submitted for cytology preparation including cell block. Mr 12/26/2023 TC:0 CPT: 24597,91476
--- NOTE | 2023-12-26 | IMM_PTH ---
PATIENT: NADEEN DONAHUE LOC: MS3 U#:[id number] AGE/SX: 58/M [place] [facility] [place]: Dr. Gus Baez DO : 1965 BED: 1 DIS: 12/27/2023 SPEC #: [id number] RECD: 12/29/23 10:50 STATUS: SOUKareen REQ #: [id number] TONEY: 12/26/23 00:[address]: Gus Baez DEPT: IMMUNOHISTOCHEMISTRY RECD BY: Alex Ceron ENTERED: 12/29/23 10:51 SP TYPE: IMMUNO OTHR DR: MD Dr. Naina Mahmood MD Dr. Steven A Wanek, MD Dr. Victor Velasquez, MD Tissues: Liver, NOS Procedures: SMA (add) CD31 (add) CD34 (add) CK8 (add) DESMIN (add) KI-67 (add) P53 (add) Vimentin (add) FACTOR VIII (add) Pankeratin (initial) MELAN-A (add) Uroplakin III (add) S-100 (add) PHYSICIAN & INSTITUTION [place] [id number] SPECIMEN INFORMATION: Tissue Source: Liver mass Clinical Info: Liver mass Specimen Number: [id number] CPT code: 87669,08200s73 METHODOLOGY: Deparaffinized sections of prefer/formalin-fixed tissue or PAP/DQ stained slides are incubated with monoclonal/polyclonal antibodies/oligonucleotide probes. Localization is made via biotin free immunoperoxidase method. Appropriate controls are performed and reacted as expected. Results on target cell population are indicated in the following table: RESULTS: ANTIBODY / CLONE RESULT AE1-3 (AE1/AE3/PCK26) negative CK8 (28bdodS73) negative Vimentin (V9) positive CD31 (AICHA/70A) negative Factor VIII (R Ag) negative CD34 (QBEnd-10) negative Actin (1A4) negative Desmin (CE-R-11) negative Melan A (A103) negative S-100 (4C4.9) negative P53 (DO-7) negative (null pattern) Ki-67 (30-9) positive (80 to 90%) Uroplakin III (SP73) negative These tests were developed and their performance characteristics determined by [facility]. They may not have been cleared or approved by the U.S. Food and Drug Administration. The FDA has determined that such clearance or approval is not necessary. The above immunohistochemical/dualISH markers are ordered and reviewed by the Pathologist. 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 See comment. COMMENT: The specimen was [facility] and above diagnosis is rendered. Complete report is viewable in the patient's EMR. SJOdinmr 01/02/2024
[2023-12-26 00:14] LABS: Color, Urine Yellow (Yellow); Glucose, Dipstick Normal (Normal); Ketone-Dipstick Negative (Negative); Leukocyte Esterase-Dipstick 25 /ul (Negative); Nitrite-Dipstick Negative (Negative); Occult Blood-Urine 25 /ul (Negative); Protein-Dipstick 30 mg/dl (Negative); Urine Bilirubin Dipstick Negative (Negative); Urine Clarity Clear (Clear); Urine Urobilinogen Normal (Normal)
[2023-12-26 00:39] LABS: Bacteria 3+ /hpf (None Seen); Fine Granular Cast- Urine 0-5 SEEN /lpf (0-5); Hyaline Cast 0-5 SEEN /lpf (0-5); Mucous, Urine 1+ /hpf (<or=2+); Red Blood Cells-Urine 5-10 SEEN /hpf (0-5); Squamous Epithelial Cells - UA 10-25 SEEN /hpf (0-5); White Blood Cells 5-10 SEEN /hpf (0-5)
[2023-12-26] MEDS: Acetaminophen 325 MG Tablet 650 MG PO (02:28)
[2023-12-26] MEDS: 0.9% Normal Saline (1000mL) 1,000 ML 100 ML IV ×2 (05:59→16:38)
[2023-12-26 06:02] LABS: Absolute Lymphocyte Count 1.82 X10^3/uL (0.83-4.51); Absolute Neutrophil Count 15.8 X10^3/uL (2.0-7.7); Basophil% 0.5 % (0-1); Eosinophil# 0.28 X10^3/uL; Eosinophils% 1.4 % (0-5); Hematocrit 34.3 % (40-54); Hemoglobin 10.5 g/dL (13.0-16.5); Lymphocyte # 1.82 X10^3/ul (0.83-4.51); Lymphocyte % 9.3 % (19-41); Mean Corp Hgb Conc 30.6 g/dL (32-36); Mean Corpuscular Volume 78.3 fL (80-94); Mean Platelet Vol. 9.1 fl (6.2-12.0); Monocyte# 1.39 X10^3/uL; Monocyte% 7.1 % (0-10); NRBC Flagged by Analyzer 0 % (0-5); Platelet Count 321 K/mm3 (150-450); Red Blood Count 4.38 M/mm3 (4.6-6.2); White Blood Count 19.5 K/mm3 (4.4-11.0)
[2023-12-26] MEDS: Morphine 2 MG/ML Syringe IV ×2 (06:02→17:06)
[2023-12-26] MEDS: 0.9% Saline Lock 10 ML Syringe IV (06:02)
[2023-12-26 06:12] LABS: International Normalized Ratio 1.3; Prothrombin Time (Protime)PT. 15.9 SECONDS (11.7-14.9)
[2023-12-26] MEDS: Magnesium Citrate 300 ML PO (07:44)
[2023-12-26] MEDS: Senna/Docusate Sodium 1 Tablet 2 TABLET PO ×2 (07:46→21:40)
--- NOTE | 2023-12-26 09:12 | PN.HOSP_ITS ---
Subjective Subjective Doing well, no issues overnight. He was able to complete the prep though he is not having clear BMs yet Objective Data Objective Data Vital Signs: Vital Signs Temp Pulse Resp BP Pulse Ox O2 Del Method 97.6 F L 74 18 98/45 L 98 Room Air 12/26/23 08:45 12/26/23 08:57 12/26/23 08:57 12/26/23 08:45 12/26/23 08:57 12/26/23 08:57 Oxygen Delivery Method Room Air Weight: 312 lb 13.375 oz Body Mass Index (BMI) 46.2 Intake & Output: Intake and Output for Last 24 Hours 12/25/23 12/26/23 12/27/23 03:59 03:59 03:59 Intake Total 2609.9967 / 2609.9967 643.33 / 643.33 Output Total 350 / 350 Balance 2259.9967 / 2259.9967 643.33 / 643.33 Lab / Micro Data 12/26/23 05:15 12/25/23 18:28 Labs: Laboratory Results - last 24 hr 12/25/23 12:20: WBC 23.1 H, RBC 4.90, Hgb 11.8 L, Hct 38.1 L, MCV 77.8 L, MCH 24.1 L, MCHC 31.0 L, RDW Std Deviation 47.5 H, RDW Coeff of Tiffany 16.9 H, Plt Count 369, MPV 9.1, Immature Gran % (Auto) 0.600, Neut % (Auto) 82.4 H, Lymph % (Auto) 9.4 L, [place] % (Auto) 6.2, Eos % (Auto) 0.7, Baso % (Auto) 0.7, Absolute Neuts (auto) 19.0 H, Absolute Lymphs (auto) 2.16, Nucleated RBC % 0, PT 15.3 H, INR 1.2, Sodium 136, Potassium 4.0, Chloride 103, Carbon Dioxide 26.0, Anion Gap 8, BUN 34 H, Creatinine 1.59 H, Estim Creat Clear Calc 71.91, Est GFR (MDRD) Af Amer 58 L, Est GFR (MDRD) Non-Af 48 L, BUN/Creatinine Ratio 21.4 H, Glucose 97, Lactic Acid 2.2 H*, Calcium 12.7 H*, Phosphorus 3.2, Total Bilirubin 0.40, Direct Bilirubin 0.16, AST 40 H, ALT 52, Alkaline Phosphatase 218 H, Total Protein 7.8, Albumin 2.8 L, Globulin 5.0 H, Lipase 36, PTH Intact 8.3 L 12/25/23 16:35: Lactic Acid 1.9, Vitamin D 25-Hydroxy 32.9 12/25/23 18:28: Sodium 135 L, Potassium 3.8, Chloride 102, Carbon Dioxide 27.0, Anion Gap 7, BUN 33 H, Creatinine 1.50 H, Estim Creat Clear Calc 76.22, Est GFR (MDRD) Af Amer 62, Est GFR (MDRD) Non-Af 51 L, BUN/Creatinine Ratio 22.0 H, G lucose 124 H, Calcium 12.5 H 12/26/23 00:02: Urine Color Yellow, Urine Clarity Clear, Urine pH 5.0, Ur Specific [place] 1.020, Urine Protein 30 H, Urine Glucose (UA) Normal, Urine Ketones Negative, Urine Occult Blood 25 H, Urine Nitrite Negative, Urine Bilirubin Negative, Urine Urobilinogen Normal, Ur Leukocyte Esterase 25 H, Urine RBC 5-10 SEEN, Urine WBC 5-10 SEEN, Ur Squamous Epith Cells 10-25 SEEN, Urine Bacteria 3+, Hyaline Casts 0-5 SEEN, Fine Granular Casts 0-5 SEEN, Urine Mucus 1+ 12/26/23 05:15: WBC 19.5 H, RBC 4.38 L, Hgb 10.5 L, Hct 34.3 L, MCV 78.3 L, MCH 24.0 L, MCHC 30.6 L, RDW Std Deviation 48.0 H, RDW Coeff of Tiffany 17.0 H, Plt Count 321, MPV 9.1, Immature Gran % (Auto) 0.700, Neut % (Auto) 81.0 H, Lymph % (Auto) 9.3 L, [place] % (Auto) 7.1, Eos % (Auto) 1.4, Baso % (Auto) 0.5, Absolute Neuts (auto) 15.8 H, Absolute Lymphs (auto) 1.82, Nucleated RBC % 0, PT 15.9 H, INR 1.3 Radiography Diagnostic Testing: Radiology Impression Abdomen/Pelvis CT 12/25/23 12:12 IMPRESSION: Hepatomegaly. Elevation of the right hemidiaphragm. Multiple masses in the liver. Large mass in the region of the cecum. A neoplastic process with metastatic deposits should be ruled out. Small right pleural effusion. Electronically Signed: Zana Amezquita MD at 13:54 EDT , Physical Exam Narrative General: Alert, Oriented x3, Cooperative, No apparent distress HEENT: Atraumatic, PERRLA, EOMI, Normocephalic Oral: Moist Mucosa Neck: Supple, No JVD Lungs: Diminished, Normal air movement, No rhonchi, No wheeze, No rales Cardiovascular: Regular rate, Regular Rhythm, Normal S1, Normal S2, No murmurs Abdomen: Soft, Non Tender, distended, No Hepato-splenomegaly Extremities: No edema, Capillary Refill Less than 3 Seconds Skin: No rashes, No breakdown Musculoskeletal: No Tenderness to Palpation of Joints or Extremities Neurological: No focal neurological deficits, Motor Exam 5/5 strength throughout, Sensory exam intact to light touch and pain Psych/Mental Status: Normal Affect, Appropriate Assessment & Plan Assessment/Plan (1) Liver masses: PLAN: Plan 1. Right upper quadrant abdominal pain with liver mets and a cecal mass ? Plan for colonoscopy, he might need a 2-day prep ? CT-guided biopsy of the liver masses is also ordered ? He does have hypercalcemia concerning for possible bone mets and was given pamidronate overnight, lab work is pending ? Continues to have leukocytosis, culture data is pending. No obvious signs of infection 2. Essential hypertension ? Will hold his medication secondary to his elevated creatinine ? Unclear if he has an GAVINO versus CKD as his morning labs are not back yet at the time of this note DVT: Lovenox Charges/Coding Visit Charges Inpatient E&M: 13044 Subs Hosp L2
--- NOTE | 2023-12-26 09:22 | HP.PCM_ITS ---
HPI - General General Date of Admission: 12/25/23 Date of Service: 12/26/23 Chief Complaint: Abdominal Pain HPI Narrative NADEEN DONAHUE, is a 58 M who presents [facility] Medical History Encounter for examination required by Department of Transportation (DOT) Home Medications ?Medication ?Instructions ?Recorded ?Last Taken ?Type lisinopril 20 mg tablet 20 mg PO DAILY 12/31/18 12/31/18 History naproxen 500 mg tablet 500 mg PO BID #20 tabs 01/01/19 Unknown Rx hydrochlorothiazide 25 mg tablet 25 mg PO DAILY 12/25/23 Unknown History lisinopril 40 mg tablet 40 mg PO DAILY 12/25/23 Unknown History Allergy/AdvReac Type Severity Reaction Status Date / Time No Known Allergies Allergy Verified 12/25/23 11:55 Family History unable to obtain Social History Smoking Status: Former smoker Vital Signs Vital Signs Vital Signs: 12/25/23 11:54 12/25/23 12:30 12/25/23 14:09 Temperature 98.3 F Temperature Source Temporal Pulse Rate 90 86 Pulse Strength Respiratory Rate 14 15 Respiratory Effort Respiratory Depth Respiratory Pattern Normal Blood Pressure 106/74 129/91 H Blood Pressure Mean 84 103 Blood Pressure Source Blood Pressure Position Blood Pressure Location Pulse Ox 95 Oxygen Delivery Method Room Air 12/25/23 15:33 12/25/23 15:35 12/25/23 16:03 Temperature 97.9 F 98.1 F Temperature Source Temporal Pulse Rate 89 89 Pulse Strength Respiratory Rate 14 14 Respiratory Effort Normal Non-Labored Respiratory Depth Normal Respiratory Pattern Normal Blood Pressure 117/62 117/62 Blood Pressure Mean 80 80 Blood Pressure Source Blood Pressure Position Blood Pressure Location Pulse Ox 98 89 Oxygen Delivery Method Room Air 12/25/23 16:39 12/25/23 20:14 12/26/23 02:44 Temperature 97.7 F L 97.8 F 98 F Temperature Source Oral Oral Oral Pulse Rate 86 88 76 Pulse Strength Respiratory Rate 16 16 16 Respiratory Effort Respiratory Depth Respiratory Pattern Blood Pressure 125/51 H 105/59 L 115/57 L Blood Pressure Mean 75 74 76 Blood Pressure Source Monitor Monitor Blood Pressure Position Sitting Sitting Blood Pressure Location Left Arm Right Arm Pulse Ox 94 94 97 Oxygen Delivery Method Room Air Room Air Room Air 12/26/23 08:45 12/26/23 08:51 12/26/23 08:57 Temperature 97.6 F L Temperature Source Oral Pulse Rate 74 74 Pulse Strength Normal (2+) Respiratory Rate 18 18 Respiratory Effort Normal Non-Labored Respiratory Depth Normal Respiratory Pattern Normal Blood Pressure 98/45 L Blood Pressure Mean 62 Blood Pressure Source Monitor Blood Pressure Position Sitting Blood Pressure Location Right Arm Pulse Ox 97 98 Oxygen Delivery Method Room Air Room Air Weight Weight: 312 lb 13.375 oz Body Mass Index (BMI) 46.2 Results Lab / Micro Data 12/26/23 05:15 12/25/23 18:28 Labs: Laboratory Results - last 24 hr 12/25/23 12:20: WBC 23.1 H, RBC 4.90, Hgb 11.8 L, Hct 38.1 L, MCV 77.8 L, MCH 24.1 L, MCHC 31.0 L, RDW Std Deviation 47.5 H, RDW Coeff of Tiffany 16.9 H, Plt Count 369, MPV 9.1, Immature Gran % (Auto) 0.600, Neut % (Auto) 82.4 H, Lymph % (Auto) 9.4 L, [place] % (Auto) 6.2, Eos % (Auto) 0.7, Baso % (Auto) 0.7, Absolute Neuts (auto) 19.0 H, Absolute Lymphs (auto) 2.16, Nucleated RBC % 0, PT 15.3 H, INR 1.2, Sodium 136, Potassium 4.0, Chloride 103, Carbon Dioxide 26.0, Anion Gap 8, BUN 34 H, Creatinine 1.59 H, Estim Creat Clear Calc 71.91, Est GFR (MDRD) Af Amer 58 L, Est GFR (MDRD) Non-Af 48 L, BUN/Creatinine Ratio 21.4 H, Glucose 97, Lactic Acid 2.2 H*, Calcium 12.7 H*, Phosphorus 3.2, Total Bilirubin 0.40, Direct Bilirubin 0.16, AST 40 H, ALT 52, Alkaline Phosphatase 218 H, Total Protein 7.8, Albumin 2.8 L, Globulin 5.0 H, Lipase 36, PTH Intact 8.3 L 12/25/23 16:35: Lactic Acid 1.9, Vitamin D 25-Hydroxy 32.9 12/25/23 18:28: Sodium 135 L, Potassium 3.8, Chloride 102, Carbon Dioxide 27.0, Anion Gap 7, BUN 33 H, Creatinine 1.50 H, Estim Creat Clear Calc 76.22, Est GFR (MDRD) Af Amer 62, Est GFR (MDRD) Non-Af 51 L, BUN/Creatinine Ratio 22.0 H, G lucose 124 H, Calcium 12.5 H 12/26/23 00:02: Urine Color Yellow, Urine Clarity Clear, Urine pH 5.0, Ur Specific [place] 1.020, Urine Protein 30 H, Urine Glucose (UA) Normal, Urine Ketones Negative, Urine Occult Blood 25 H, Urine Nitrite Negative, Urine Bilirubin Negative, Urine Urobilinogen Normal, Ur Leukocyte Esterase 25 H, Urine RBC 5-10 SEEN, Urine WBC 5-10 SEEN, Ur Squamous Epith Cells 10-25 SEEN, Urine Bacteria 3+, Hyaline Casts 0-5 SEEN, Fine Granular Casts 0-5 SEEN, Urine Mucus 1+ 12/26/23 05:15: WBC 19.5 H, RBC 4.38 L, Hgb 10.5 L, Hct 34.3 L, MCV 78.3 L, MCH 24.0 L, MCHC 30.6 L, RDW Std Deviation 48.0 H, RDW Coeff of Tiffany 17.0 H, Plt Count 321, MPV 9.1, Immature Gran % (Auto) 0.700, Neut % (Auto) 81.0 H, Lymph % (Auto) 9.3 L, [place] % (Auto) 7.1, Eos % (Auto) 1.4, Baso % (Auto) 0.5, Absolute Neuts (auto) 15.8 H, Absolute Lymphs (auto) 1.82, Nucleated RBC % 0, PT 15.9 H, INR 1.3 Imaging Radiology Impression Abdomen/Pelvis CT 12/25/23 12:12 IMPRESSION: Hepatomegaly. Elevation of the right hemidiaphragm. Multiple masses in the liver. Large mass in the region of the cecum. A neoplastic process with metastatic deposits should be ruled out. Small right pleural effusion. Electronically Signed: Zana Amezquita MD at 13:54 EDT ,
[2023-12-26] MEDS: Midazolam 2 MG/2 ML Syringe IV (10:12)
[2023-12-26] MEDS: fentaNYL 100 MCG/2 ML Ampul IV (10:13)
[2023-12-26] MEDS: Lidocaine 2% (20 ml mdv) 20 ML Vial INFILT (10:25)
[2023-12-26 10:36] LABS: ALB/GLOB Ratio 0.6 RATIO (0.9-2.4); AST(SGOT) 38 U/L (15-37); Alanine Aminotransfer ALT/SGPT 49 U/L (16-61); Albumin, Serum 2.6 g/dL (3.2-5.0); Alkaline Phosphatase 197 U/L (45-117); Anion Gap 8 (5-15); BUN 32 mg/dL (7-18); BUN/Creat Ratio 22.1 RATIO (10-20); Calcium,Total 11.6 mg/dL (8.5-10.1); Chloride 102 mmol/L (98-107); Creatinine, Serum 1.45 mg/dL (0.70-1.30); EST Glomerular Filtration Rate 53 mL/min (>60); Est Glom Filt Rate - Afr Amer 65 mL/min (>60); Estimated Creatinine Clearance 78.85 ml/min; Globulin 4.5 g/dL (2.2-4.2); Glucose 100 mg/dL (74-106); Magnesium 1.7 mg/dL (1.6-2.6); Potassium 3.7 mmol/L (3.5-5.1); Protein, Total 7.1 g/dL (6.4-8.2); Sodium Level 135 mmol/L (136-145)
--- NOTE | 2023-12-26 10:49 | PRO.PCM_ITS ---
Procedure Report Date of Procedure: 12/26/23 Assessment & Plan Assessment/Plan (1) Liver masses: PLAN: PROCEDURE: CT DIRECTED CORE LIVER MASS BIOPSY ORDERING PROVIDER: Dr. Naina Avelar INDICATION: Male, 58 years old. Liver masses. PROVIDER: BISI Hall CONSENT: Written informed consent was obtained having explained the risks, benefits and alternatives in detail with the patient who accepted the risks and agreed to proceed. Laboratory review and clinical assessment was performed. PRE-PROCEDURE SEDATION ASSESSMENT: Current history and physical dictated by referring provider and reviewed. No clinical changes since date of exam. Patient has a Mallampati Score of Class 1 and ASA Class of 3. PROCEDURAL SEDATION PROTOCOL: The Drugs used were: 2 mg Versed, IV, and 50 mcg Fentanyl, IV. The sedation time was: 29 minutes, starting at 1012 and terminated at 1041. The procedural sedation protocol was independently monitored by the department nurse. RADIATION DOSAGE (If Supplied By Facility): CTDIvol = 23.05 mGy, DLP = 1387.74 mGycm Individualized dose optimization techniques were used for this CT. TECHNIQUE The patient was placed in a supine position. Using CT image guidance with image documentation, a suitable location in the right lobe of the liver was identified. The skin surface was prepped with chlorhexidine and draped in a sterile fashion. 2% lidocaine was used for local anesthesia. Using an anterior approach, puncture of the liver mass was made with an 18-gauge core needle system. Upon puncture, a serous dark brown-colored fluid began to drain. 400 mL of this was aspirated. A culture order was entered for this fluid. 5, 18- gauge core samples were also obtained. Pathology was present and additional samples were also submitted in formalin to the pathologist for further assessment. The needle was removed. An occlusive sterile dressing was applied. Patient tolerated the procedure well, and returned to the holding bay for nursing monitoring. IMPRESSION: CT directed core needle biopsy of the liver mass, using CT image guidance with image documentation as described. Procedural Sedation protocol utilized with independent monitoring. Procedures Radiology Radiology CT Procedures: 52787 Biopsy Liver Multi Select Codes Radiology Radiology CT Procedures: 18353-05 CT guidance parenchymal tissue
--- NOTE | 2023-12-26 11:06 | CPS ---
PT UNAVAILABLE AT THIS TIME. SMI AND PEP HELD
--- NOTE | 2023-12-26 11:11 | PN.SURG_ITS ---
Subjective Subjective Patient states right upper quadrant pain is under better control today. Patient was tolerating prep reasonably well but was still having cloudy brown output. Patient apparently is scheduled for CT-guided liver biopsy today as well Objective Data Objective Data Vital Signs: Vital Signs Temp Pulse Resp BP Pulse Ox O2 Del Method O2 Flow Rate 97.8 F 88 18 124/58 H 95 Room Air 2 12/26/23 09:43 12/26/23 10:40 12/26/23 10:40 12/26/23 10:40 12/26/23 09:43 12/26/23 11:00 12/26/23 10:40 Oxygen Flow Rate (L/min) 2 Oxygen Delivery Method Room Air Weight: 312 lb 13.375 oz Body Mass Index (BMI) 46.2 Intake & Output: Intake and Output for Last 24 Hours 12/24/23 12/25/23 12/26/23 23:59 23:59 23:59 Intake Total 2609.9967 / 2609.9967 643.33 / 643.33 Output Total 350 / 350 Balance 2609.9967 / 2609.9967 293.33 / 293.33 Lab / Micro Data 12/26/23 05:15 12/26/23 05:15 Labs: Laboratory Results - last 24 hr 12/25/23 12:20: WBC 23.1 H, RBC 4.90, Hgb 11.8 L, Hct 38.1 L, MCV 77.8 L, MCH 24.1 L, MCHC 31.0 L, RDW Std Deviation 47.5 H, RDW Coeff of Tiffany 16.9 H, Plt Count 369, MPV 9.1, Immature Gran % (Auto) 0.600, Neut % (Auto) 82.4 H, Lymph % (Auto) 9.4 L, Camas % (Auto) 6.2, Eos % (Auto) 0.7, Baso % (Auto) 0.7, Absolute Neuts (auto) 19.0 H, Absolute Lymphs (auto) 2.16, Nucleated RBC % 0, PT 15.3 H, INR 1.2, Sodium 136, Potassium 4.0, Chloride 103, Carbon Dioxide 26.0, Anion Gap 8, BUN 34 H, Creatinine 1.59 H, Estim Creat Clear Calc 71.91, Est GFR (MDRD) Af Amer 58 L, Est GFR (MDRD) Non-Af 48 L, BUN/Creatinine Ratio 21.4 H, Glucose 97, Lactic Acid 2.2 H*, Calcium 12.7 H*, Phosphorus 3.2, Total Bilirubin 0.40, Direct Bilirubin 0.16, AST 40 H, ALT 52, Alkaline Phosphatase 218 H, Total Protein 7.8, Albumin 2.8 L, Globulin 5.0 H, Lipase 36, PTH Intact 8.3 L 12/25/23 16:35: Lactic Acid 1.9, Vitamin D 25-Hydroxy 32.9 12/25/23 18:28: Sodium 135 L, Potassium 3.8, Chloride 102, Carbon Dioxide 27.0, Anion Gap 7, BUN 33 H, Creatinine 1.50 H, Estim Creat Clear Calc 76.22, Est GFR (MDRD) Af Amer 62, Est GFR (MDRD) Non-Af 51 L, BUN/Creatinine Ratio 22.0 H, G lucose 124 H, Calcium 12.5 H 12/26/23 00:02: Urine Color Yellow, Urine Clarity Clear, Urine pH 5.0, Ur Specific Merrill 1.020, Urine Protein 30 H, Urine Glucose (UA) Normal, Urine Ketones Negative, Urine Occult Blood 25 H, Urine Nitrite Negative, Urine Bilirubin Negative, Urine Urobilinogen Normal, Ur Leukocyte Esterase 25 H, Urine RBC 5-10 SEEN, Urine WBC 5-10 SEEN, Ur Squamous Epith Cells 10-25 SEEN, Urine Bacteria 3+, Hyaline Casts 0-5 SEEN, Fine Granular Casts 0-5 SEEN, Urine Mucus 1+ 12/26/23 05:15: WBC 19.5 H, RBC 4.38 L, Hgb 10.5 L, Hct 34.3 L, MCV 78.3 L, MCH 24.0 L, MCHC 30.6 L, RDW Std Deviation 48.0 H, RDW Coeff of Tiffany 17.0 H, Plt Count 321, MPV 9.1, Immature Gran % (Auto) 0.700, Neut % (Auto) 81.0 H, Lymph % (Auto) 9.3 L, Camas % (Auto) 7.1, Eos % (Auto) 1.4, Baso % (Auto) 0.5, Absolute Neuts (auto) 15.8 H, Absolute Lymphs (auto) 1.82, Nucleated RBC % 0, PT 15.9 H, INR 1.3, Sodium 135 L, Potassium 3.7, Chloride 102, Carbon Dioxide 25.0, Anion Gap 8, BUN 32 H, Creatinine 1.45 H, Estim Creat Clear Calc 78.85, Est GFR (MDRD) Af Amer 65, Est GFR (MDRD) Non-Af 53 L, BUN/Creatinine Ratio 22.1 H, Glucose 100, Calcium 11.6 H, Magnesium 1.7, Total Bilirubin 0.40, AST 38 H, ALT 49, A lkaline Phosphatase 197 H, Total Protein 7.1, Albumin 2.6 L, Globulin 4.5 H, A lbumin/Globulin Ratio 0.6 L Radiography Diagnostic Testing: Radiology Impression Abdomen/Pelvis CT 12/25/23 12:12 IMPRESSION: Hepatomegaly. Elevation of the right hemidiaphragm. Multiple masses in the liver. Large mass in the region of the cecum. A neoplastic process with metastatic deposits should be ruled out. Small right pleural effusion. Electronically Signed: Zana Amezquita MD at 13:54 EDT , Physical Exam Const oriented x3 and no apparent distress GI GI Narrative: Abdomen is soft and morbidly obese. He does have tenderness to palpation mostly in the right upper quadrant. No rebound or guarding. Assessment & Plan Assessment/Plan (1) Cecum mass: PLAN: Patient is a 58-year-old male that presented with right upper quadrant pain to the ER yesterday. CT scan showed significant liver metastasis as well as a large cecal mass. Agree with CT-guided liver biopsy to establish diagnosis. Patient was bowel prepped overnight for possible colonoscopy today if CT-guided liver biopsy was unable to be performed to establish tissue diagnosis. Patient does not seem to be sufficiently prepped to proceed with colonoscopy Will await CT-guided biopsy results to determine if colonoscopy is even necessary at this point. Dr. Pradhan to cover weekend (2) Liver masses: Charges/Coding Visit Charges Inpatient E&M: 21500 Subs Hosp L2
[2023-12-26] MEDS: Electrolyte Solution/Peg's 4000 ML 1000 ML PO (19:59)
[2023-12-26] MEDS: Enoxaparin 40 MG/0.4 ML Syringe SC (21:40)
--- NOTE | 2023-12-26 23:00 | CON.PCM.GI_ITS ---
HPI Consult Data Date of Consult: 12/26/23 HPI Narrative Reason for Consultation: Cecal mass HPI Narrative: NADEEN DONAHUE, is a 58-year-old male history of obesity, hypertension, hyperlipidemia who presented [facility] ED due to lab values. Patient is in having right upper quadrant abdominal pain for 2 months and has been getting more and more severe and is now constant. Went to PCP yesterday and they checked his labs and he had an outpatient CT scan scheduled however given his very high white blood cell count he was advised to go to the emergency department. Pain is now unbearable and he is here for evaluation. In the ED patient has white blood cell count of 23 with left shift, also has hypercalcemia with calcium of 12.[address] obtained which showed liver masses and cecal mass. Patient evaluated at bedside, reports that he has had some weight loss and this worsening pain over 2 months with constipation which is abnormal for him, last had small bowel movement last night. Aside from the pain denies any fevers or chills, no burning on urination or diarrhea, no cough, no lesions, no other infectious symptoms whatsoever. He underwent liver biopsy yesterday and he also had 400 mL of fluid removed from his liver as per the patient. I was asked to see the patient for colonoscopy. [facility] Medical History Encounter for examination required by Department of Transportation (DOT) Home Medications ?Medication ?Instructions ?Recorded ?Last Taken ?Type lisinopril 20 mg tablet 20 mg PO DAILY 12/31/18 12/31/18 History naproxen 500 mg tablet 500 mg PO BID #20 tabs 01/01/19 Unknown Rx hydrochlorothiazide 25 mg tablet 25 mg PO DAILY 12/25/23 Unknown History lisinopril 40 mg tablet 40 mg PO DAILY 12/25/23 Unknown History Allergy/AdvReac Type Severity Reaction Status Date / Time No Known Allergies Allergy Verified 12/25/23 11:55 Family History unable to obtain Social History Smoking Status: Former smoker ROS ROS Narrative General: Denies fever/chills HENT: Denies headache, denies stuffy nose, denies sore throat EYES: Denies changes in vision Resp: Denies cough, denies shortness of breath Cardiac: Denies chest pain GI: No nausea or vomiting, some right upper quadrant abdominal pain, constipation : Denies changes in urination Extremity: Denies swelling MSK: Denies weakness Neuro: Denies any numbness/tingling Heme: Denies any bleeding or bruising Skin: Denies rashes Psychiatric: No complaints voiced Physical Exam Narrative General: Alert, Oriented x3, Cooperative, No apparent distress HEENT: Atraumatic, PERRLA, EOMI, Normocephalic Oral: Moist Mucosa Neck: Supple, No JVD Lungs: Diminished, Normal air movement, No rhonchi, No wheeze, No rales Cardiovascular: Regular rate, Regular Rhythm, Normal S1, Normal S2, No murmurs Abdomen: Soft, Non Tender, distended, No Hepato-splenomegaly Extremities: No edema, Capillary Refill Less than 3 Seconds Skin: No rashes, No breakdown Musculoskeletal: No Tenderness to Palpation of Joints or Extremities Neurological: No focal neurological deficits, Motor Exam 5/5 strength throughout, Sensory exam intact to light touch and pain Psych/Mental Status: Normal Affect, Appropriate Medical Records Data Medical Nutrition Assessment Dietitian: Malnutrition Criteria Met Start: 12/26/23 11:43 Freq: Status: Active Protocol: Document 12/26/23 11:43 SLA (Rec: 12/26/23 11:43 SLA [id number]) Nutrition Malnutrition Evidence of Malnutrition Exists Yes Malnutrition (severe): Acute Illness/Injury Evidenced By Suboptimal Energy Intake ( Severe),Weight Loss (Severe) Clinical Problem Acute Disease or Injury Related Malnutrition Etiology related to liver masses/abd pain and inadequate energy intake Signs/Symptoms as evidenced by 12.1% unintended wt loss and po intake meeting <75% of estimated nutritional needs 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 Will interview pt at time of follow up re: diet/wt hx, etc and make additional rec as indicated Lab / Micro Data 12/26/23 05:15 12/27/23 05:10 Labs: Laboratory Results - last 24 hr 12/26/23 05:15: Sodium 135 L, Potassium 3.7, Chloride 102, Carbon Dioxide 25.0, Anion Gap 8, BUN 32 H, Creatinine 1.45 H, Estim Creat Clear Calc 78.85, Est GFR (MDRD) Af Amer 65, Est GFR (MDRD) Non-Af 53 L, BUN/Creatinine Ratio 22.1 H, Glucose 100, Calcium 11.6 H, Magnesium 1.7, Total Bilirubin 0.40, AST 38 H, ALT 49, Alkaline Phosphatase 197 H, Total Protein 7.1, Albumin 2.6 L, Globulin 4.5 H , Albumin/Globulin Ratio 0.6 L 12/27/23 05:10: Sodium 134 L, Potassium 3.6, Chloride 102, Carbon Dioxide 27.0, Anion Gap 5, BUN 23 H, Creatinine 1.19, Estim Creat Clear Calc 96.08, Est GFR (MDRD) Af Amer 81, Est GFR (MDRD) Non-Af 67, BUN/Creatinine Ratio 19.3, Glucose 99, Calcium 10.4 H, Total Bilirubin 0.40, AST 37, ALT 43, Alkaline Phosphatase 180 H, Total Protein 6.3 L, Albumin 2.3 L, Globulin 4.0, Albumin/Globulin Ratio 0.6 L Micro: Microbiology 12/26/23 Unknown Aspirate - Abdominal Gram Stain - Final Assessment & Plan Assessment/Plan (1) Liver masses: PLAN: Plan Very pleasant 58-year-old gentleman with right upper quadrant pain abdominal pain 2/2 Liver masses and cecal mass -Liver masses and cecal mass seen on CT scan status post percutaneous biopsy -will continue to prep patient tonight for possible colonoscopy tomorrow Charges/Coding Visit Charges Inpatient E&M: 48557 Init Hosp L3
[2023-12-27] VITALS (10 sets, daily range): BP systolic 100–135; BP diastolic 58–69; PULSE 84–96; RESP 16–20; TEMP 36.6–37.6; O2SAT 88–96
[2023-12-27] MEDS: 0.9% Normal Saline (1000mL) 1,000 ML 100 ML IV (03:08)
[2023-12-27] MEDS: Morphine 2 MG/ML Syringe IV ×2 (04:35→09:14)
[2023-12-27] MEDS: Ondansetron 4 MG/2 ML Vial IV (04:36)
[2023-12-27] MEDS: 0.9% Saline Lock 10 ML Syringe IV (04:36)
[2023-12-27 06:35] LABS: ALB/GLOB Ratio 0.6 RATIO (0.9-2.4); AST(SGOT) 37 U/L (15-37); Alanine Aminotransfer ALT/SGPT 43 U/L (16-61); Albumin, Serum 2.3 g/dL (3.2-5.0); Alkaline Phosphatase 180 U/L (45-117); Anion Gap 5 (5-15); BUN 23 mg/dL (7-18); BUN/Creat Ratio 19.3 RATIO (10-20); Calcium,Total 10.4 mg/dL (8.5-10.1); Chloride 102 mmol/L (98-107); Creatinine, Serum 1.19 mg/dL (0.70-1.30); EST Glomerular Filtration Rate 67 mL/min (>60); Est Glom Filt Rate - Afr Amer 81 mL/min (>60); Estimated Creatinine Clearance 96.08 ml/min; Glucose 99 mg/dL (74-106); Potassium 3.6 mmol/L (3.5-5.1); Protein, Total 6.3 g/dL (6.4-8.2); Sodium Level 134 mmol/L (136-145)
--- NOTE | 2023-12-27 06:56 | PRE.ANES_ITS ---
ASA Classification* ASA Classification ASA Classification: 3 and E Assessment & Plan Anesthesia* Anesthesia Assessment Anesthesia Assessment: Discussed sedation and/or anesthesia options, risks, benefits, and alternatives with patient/parents/legal guardian/POA. Questions invited. The patient/parents/legal guardian/POA seems to understand and agrees to proceed with anesthesia plan. Reviewed the physical assessment, medical history, allergy history and patient home medications list prior to surgery/procedure/anesthetic and documented any changes. Performed airway and anesthesia risk assessments. Procedural Plan Add'l anesthesia plan details: MAC for colonoscopy Anesthesia Type Anesthesia Type: MAC (Colonoscopy) Anesthesia Focused Assessment* Temperature: 98.8 F Pulse Rate: 95 Blood Pressure: 135/63 Respiratory Rate: 20 Pulse Ox: 96 Airway Assessment Mouth opens: >3 cm Mallampati Score: II Teeth Condition: Intact Neck Range of motion (ROM): Full ROM Focused Labs Anesthesia Preop lab: CBC WBC 19.5 K/mm3 (4.4-11.0) H 12/26/23 05:15 RBC 4.38 M/mm3 (4.6-6.2) L 12/26/23 05:15 Hgb 10.5 g/dL (13.0-16.5) L 12/26/23 05:15 Hct 34.3 % (40-54) L 12/26/23 05:15 Plt Count 321 K/mm3 (150-450) 12/26/23 05:15 CHEMISTRY Potassium 3.6 mmol/L (3.5-5.1) 12/27/23 05:10 Sodium 134 mmol/L (136-145) L 12/27/23 05:10 Magnesium 1.7 mg/dL (1.6-2.6) 12/26/23 05:15 Phosphorus 3.2 mg/dL (2.5-4.9) 12/25/23 12:20 BUN 23 mg/dL (7-18) H 12/27/23 05:10 Creatinine 1.19 mg/dL (0.70-1.30) 12/27/23 05:10 Glucose 99 mg/dL (74-106) 12/27/23 05:10 COAG PT 15.9 SECONDS (11.7-14.9) H 12/26/23 05:15 Pre-Assessment Diagnosis/Proposed Procedure Planned Operative Procedure(s): Colonoscopy Anesthesia History Anesthesia History - front office medical assistant: Anesthesia History - front office medical assistant Hx Hospitalization No 07/15/22 15:06 Any Problems With Anesthesia No 12/25/23 20:16 Cholinesterase deficiency You/Your Family Experience fever (hyperthermia) with Relationship Recent Exposure to Contagious No 12/25/23 20:16 Disease Does patient have nerve No 12/25/23 20:16 stimulator Patient instructed to have device shut off --Does patient have Pacemaker or ICD? When Was Last Pacemaker Check QUESTION #4 FULL TEXT: You/Your Family Experience fever (hyperthermia) with Anesthesia Last Oral Intake Last Oral intake: Last Oral Intake NPO since Meds taken in AM with sips of water? Meds patient instructed to take am of surgery PONV PONV - front office medical assistant: PONV - front office medical assistant Female HX of Motion Sickness HX of N/V After Surgery Non-Smoker Duration of Surgery greater than 60 minutes Number of Risk Factors PONV Score Height & Weight Height & Weight: Anesthesia: Height & Weight Height 5 ft 9 in 12/26/23 11:33 Weight: 141.9 kg 12/26/23 11:33 Body Mass Index (BMI) 46.2 12/25/23 16:13 Respiratory Assessment Respiratory Assessment - front office medical assistant: Respiratory Tract Infection Hx - front office medical assistant Hx Respiratory Tract Infection No 12/25/23 20:16 STOP Sleep Apnea STOP Sleep Apnea - front office medical assistant: STOP Sleep Apnea - front office medical assistant Hx Hypertension Yes 12/25/23 16:13 Hx Sleep Apnea Yes 12/25/23 16:13 CPAP Yes: Haven't worn it in 2 12/25/23 16:13 weeks. BIPAP No 12/25/23 16:13 Do you snore loudly (louder than talking or can be heard Do you often feel tired/ fatigued/ sleepy during daytime? Has anyone observed you stop breathing during sleep? STOP Results Positive 12/25/23 16:13 QUESTION #5 FULL TEXT : Do you snore loudly (louder than talking or can be heard through closed doors)? 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 Specify any problems Hx of Preganancy in last 3 N/A 12/25/23 16:13 Months Nurse Filling Out Transfusion [id number] 12/25/23 16:13 & Questions: Date: 12/25/23 12/25/23 16:13 Time: 16:23 12/25/23 16:13 Patient unable to answer at this time (ie. confused, unrespo /Reproduction History /Reproductive History - front office medical assistant: /Reproductive Hx- front office medical assistant Hx Now Gestational Age (in weeks): EDC: Hx Hx Para Hx Section SAB Active Medications Active Medications: Current Medications Generic Name Dose Route Start Last Admin Trade Name Freq PRN Reason Stop Dose Admin Acetaminophen 650 mg 12/25/23 16:04 12/26/23 02:28 Acetaminophen 325 Mg Tablet PO 650 mg Q6H PRN PRN Administration Pain 1-10 Or Fever >100.7 Albuterol Sulfate 2.5 mg 12/25/23 16:04 Albuterol 2.5 Mg/3 Ml Vial.Neb. INHALATION Q2H PRN PRN SOB &/OR WHEEZING Calamine/Phenol 1 applic 12/26/23 22:00 12/26/23 21:38 Menthol/Lanolin/Calamine/Znox 113 Gm Tube TOPICAL Not Given BID [facility] Protocol Enoxaparin Sodium 40 mg 12/25/23 22:00 12/26/23 21:40 Enoxaparin 40 Mg/0.4 Ml Syringe SC 40 mg BID YORDAN Administration Flumazenil 0.2 mg 12/25/23 16:04 Flumazenil 0.5 Mg/5 Ml Vial IV Q1M PRN Respirations <10 per minute Sodium Chloride 1,000 mls @ 100 mls/hr 12/25/23 16:04 12/27/23 03:08 IV 100 mls/hr .Q10H YORDAN Administration Sodium Chloride 250 mls @ 15 mls/hr 12/25/23 19:21 IV .[id number] PRN Saline Flush Melatonin 3 mg 12/25/23 16:04 Melatonin 3 Mg Tablet PO QHS PRN PRN INSOMNIA Morphine Sulfate 2 - 4 mg 12/25/23 16:04 12/27/23 04:35 Morphine 2 Mg/Ml Syringe IV 4 mg Q3H PRN PRN Administration Pain Score 6-10 Naloxone HCl 0.02 mg 12/25/23 16:04 Naloxone 0.02mg/0.5ml Syringe Kit IV Q1M PRN Respiratory Depression Ondansetron HCl 4 mg 12/25/23 16:04 12/27/23 04:36 Ondansetron 4 Mg/2 Ml Vial IV 4 mg Q8H PRN PRN Administration NAUSEA/VOMITING Ondansetron HCl 4 mg 12/25/23 16:04 Ondansetron 4 Mg/2 Ml Vial IV X1 PRN NAUSEA/VOMITING Oxycodone HCl 5 mg 12/25/23 16:04 Oxycodone 5 Mg Tablet PO Q4H PRN PRN Pain Score 4-10 Senna/Docusate Sodium 2 tablet 12/25/23 22:00 12/26/23 21:40 Senna/Docusate Sodium 1 Tablet PO 2 tablet BID YORDAN Administration Sodium Chloride 10 - 40 ml 12/25/23 16:35 12/27/23 04:36 0.9% Saline Lock 10 Ml Syringe IV 10 ml UD PRN Administration SALINE FLUSH PFSH Medical History Encounter for examination required by Department of Transportation (DOT) Home Medications ?Medication ?Instructions ?Recorded ?Last Taken ?Type lisinopril 20 mg tablet 20 mg PO DAILY 12/31/18 12/31/18 History naproxen 500 mg tablet 500 mg PO BID #20 tabs 01/01/19 Unknown Rx hydrochlorothiazide 25 mg tablet 25 mg PO DAILY 12/25/23 Unknown History lisinopril 40 mg tablet 40 mg PO DAILY 12/25/23 Unknown History Allergy/AdvReac Type Severity Reaction Status Date / Time No Known Allergies Allergy Verified 12/25/23 11:55 Family History unable to obtain Social History Smoking Status: Former smoker Review of Systems (Anesthesia) ROS Narrative System reviewed and no additional complaints, except as documented.
--- NOTE | 2023-12-27 06:56 | PCM.POST.ANE ---
Anesthesia: Postop Eval I Current Vital Signs Temperature: 97.3 F Pulse Rate: 88 Blood Pressure: 104/66 Respiratory Rate: 19 Pulse Ox: 95 Assessment Airway patent: Yes Spontaneous unlabored respirations: Yes nausea: No Vomiting: No Anesthesia Complication: No Fluid Hydration Crystalloid volume administer (ml): 200 Total IV fluid infused: 200 Progress Note Anesthesia document: Postop Eval 1 completed: Yes
--- NOTE | 2023-12-27 07:05 | COLBX_PTH ---
PATIENT: NADEEN DONAHUE LOC: MS3 U#:[id number] AGE/SX: 58/M ROOM: [facility] RE12/25/[address]: Dr. Gus Baez DO : 1965 BED: 1 DIS: 12/27/2023 SPEC #: [id number] RECD: 12/29/23 09:21 STATUS: VENICE REQ #: [id number] TONEY: 12/27/23 07:[address]: Mikey Whelan DEPT: SURGICAL PATHOLOGY RECD BY: Meenu Good ENTERED: 12/29/23 11:02 SP TYPE: COLON BX OTHR DR: DO Dr. Aubrey Han MD Dr. Paige Pierce, MD Dr. Steven A Wanek, MD Dr. Victor Velasquez, MD Tissues: Ileum, NOS Procedures: Surgery Specimen Level IV Comments: @ Ordering doctor for SUIV edited from to @ by SANDIP at 12/29/23 1143 @ Submitting doctor edited from to @ by SANDIP at 12/29/23 1143 HEADER OPERATION: Colonoscopy with biospy PRE-OP DIAGNOSIS: Liver masses TISSUE SUBMITTED: Terminal ileum biopsy MICROSCOPIC DIAGNOSIS Terminal ileum, biopsy: Fragments of small intestinal mucosa, no pathologic diagnosis. Axel 12/30/2023 MICROSCOPIC DESCRIPTION Slides are reviewed. GROSS DESCRIPTION Received in fixative is one container labeled with the patient's name and designated Terminal ileum biopsy. The specimen consists of multiple irregular fragments of light lou soft tissue that in aggregate measure 0.5 x 0.3 x 0.1 cm. The specimen is totally submitted in one cassette. 12/29/2023 TC:4 CPT:88186
--- NOTE | 2023-12-27 08:14 | EX.PCM.PN.GI ---
Subjective Subjective I just performed colonoscopy on this patient and there were no lesions seen in the colon. There was some mild inflammation in the terminal ileum. Objective Data Objective Data Vital Signs: Vital Signs Temp Pulse Resp BP Pulse Ox O2 Del Method O2 Flow Rate 98.8 F 95 20 H 135/63 H 96 Nasal Cannula 2 12/27/23 06:59 12/27/23 06:59 12/27/23 06:59 12/27/23 06:59 12/27/23 06:59 12/27/23 04:28 12/27/23 06:59 Oxygen Flow Rate (L/min) 2 Oxygen Delivery Method Nasal Cannula Weight: 312 lb 13.375 oz Body Mass Index (BMI) 46.2 Intake & Output: Intake and Output for Last 24 Hours 12/25/23 12/26/23 12/27/23 23:59 23:59 23:59 Intake Total 2609.9967 / 2609.9967 1903.33 / 1903.33 1390 / 1390 Output Total 350 / 350 Balance 2609.9967 / 2609.9967 1553.33 / 1553.33 1390 / 1390 Medical Nutrition Assessment Dietitian: Malnutrition Criteria Met Start: 12/26/23 11:43 Freq: Status: Active Protocol: Document 12/26/23 11:43 SLA (Rec: 12/26/23 11:43 SLA [email or web address]) Nutrition Malnutrition Evidence of Malnutrition Exists Yes Malnutrition (severe): Acute Illness/Injury Evidenced By Suboptimal Energy Intake ( Severe),Weight Loss (Severe) Clinical Problem Acute Disease or Injury Related Malnutrition Etiology related to liver masses/abd pain and inadequate energy intake Signs/Symptoms as evidenced by 12.1% unintended wt loss and po intake meeting <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 Will interview pt at time of follow up re: diet/wt hx, etc and make additional rec as indicated Lab / Micro Data 12/26/23 05:15 12/27/23 05:10 Labs: Laboratory Results - last 24 hr 12/26/23 05:15: Sodium 135 L, Potassium 3.7, Chloride 102, Carbon Dioxide 25.0, Anion Gap 8, BUN 32 H, Creatinine 1.45 H, Estim Creat Clear Calc 78.85, Est GFR (MDRD) Af Amer 65, Est GFR (MDRD) Non-Af 53 L, BUN/Creatinine Ratio 22.1 H, Glucose 100, Calcium 11.6 H, Magnesium 1.7, Total Bilirubin 0.40, AST 38 H, ALT 49, Alkaline Phosphatase 197 H, Total Protein 7.1, Albumin 2.6 L, Globulin 4.5 H, Albumin/Globulin Ratio 0.6 L 12/27/23 05:10: Sodium 134 L, Potassium 3.6, Chloride 102, Carbon Dioxide 27.0, Anion Gap 5, BUN 23 H, Creatinine 1.19, Estim Creat Clear Calc 96.08, Est GFR (MDRD) Af Amer 81, Est GFR (MDRD) Non-Af 67, BUN/Creatinine Ratio 19.3, Glucose 99, Calcium 10.4 H, Total Bilirubin 0.40, AST 37, ALT 43, Alkaline Phosphatase 180 H, Total Protein 6.3 L, Albumin 2.3 L, Globulin 4.0, Albumin/Globulin Ratio 0.6 L Micro: Microbiology 12/26/23 00:02 Urine, Clean Catch Urine Culture - Preliminary Culture exhibits no growth. 12/26/23 Unknown Aspirate - Abdominal Gram Stain - Final Physical Exam Narrative General: Alert, Oriented x3, Cooperative, No apparent distress HEENT: Atraumatic, PERRLA, EOMI, Normocephalic Oral: Moist Mucosa Neck: Supple, No JVD Lungs: Diminished, Normal air movement, No rhonchi, No wheeze, No rales Cardiovascular: Regular rate, Regular Rhythm, Normal S1, Normal S2, No murmurs Abdomen: Soft, Non Tender, distended, No Hepato-splenomegaly Extremities: No edema, Capillary Refill Less than 3 Seconds Skin: No rashes, No breakdown Musculoskeletal: No Tenderness to Palpation of Joints or Extremities Neurological: No focal neurological deficits, Motor Exam 5/5 strength throughout, Sensory exam intact to light touch and pain Psych/Mental Status: Normal Affect, Appropriate Assessment & Plan Assessment/Plan (1) Intractable abdominal pain: (2) Liver masses: (3) Cecum mass: PLAN: Plan Pleasant 58-year-old gentleman with abdominal pain and discovered to have multiple liver lesions of unknown etiology at this time. It was thought to be secondary to metastatic colon cancer. There were no lesions seen on his colonoscopy. After looking at his CT scan it does look like either cirrhosis or pseudocirrhosis secondary to infiltrative disease in the liver. I would send workup for chronic liver disease including tuberculosis, chronic viral hepatitis B or C, autoimmune hepatitis, primary biliary cirrhosis. Consider MRCP to look for signs of primary sclerosing cholangitis. Will await biopsies. Also differential diagnosis would be infiltrative disease including sarcoidosis, amyloidosis or hemochromatosis resulting in hepatocellular carcinoma or hepatoma. Check alpha-fetoprotein, CA 19-9, CEA. Charges/Coding Visit Charges Inpatient E&M: 66977 Subs Hosp L3
--- NOTE | 2023-12-27 08:15 | OP.COLON_ITS ---
Patient Name: Kole Jurado Procedure Date: 12/27/2023 7:11 AM Date of : 1965 Age: 58 Procedure: Colonoscopy Indications: Abdominal pain in the right lower quadrant, Abdominal pain in the right upper quadrant Providers: Mikey Whelan DO Medicines: Monitored Anesthesia Care Patient Profile: This is a 58 year old male. Refer to note in patient chart for documentation of history and physical. Last Colonoscopy: none. The patient's first colonoscopy is today. Complications: No immediate complications. Procedure: Pre-Anesthesia Assessment: - Prior to the procedure, a History and Physical was performed, and patient medications and allergies were reviewed. The patient is competent. The risks and benefits of the procedure and the sedation options and risks were discussed with the patient. All questions were answered and informed consent was obtained. Patient identification and proposed procedure were verified by the physician in the pre-procedure area. Mental Status Examination: alert and oriented. Airway Examination: normal oropharyngeal airway and neck mobility. Respiratory Examination: clear to auscultation. CV Examination: normal. Prophylactic Antibiotics: The patient does not require prophylactic antibiotics. Prior Anticoagulants: The patient has taken no anticoagulant or antiplatelet agents except for NSAID medication. ASA Grade Assessment: II - A patient with mild systemic disease. After reviewing the risks and benefits, the patient was deemed in satisfactory condition to undergo the procedure. The anesthesia plan was to use minimal sedation / analgesia (anxiolysis). Immediately prior to administration of medications, the patient was re-assessed for adequacy to receive sedatives. The heart rate, respiratory rate, oxygen saturations, blood pressure, adequacy of pulmonary ventilation, and response to care were monitored throughout the procedure. The physical status of the patient was re-assessed after the procedure. After I obtained informed consent, the scope was passed under direct vision. Throughout the procedure, the patient's blood pressure, pulse, and oxygen saturations were monitored continuously. The Colonoscope was introduced through the anus and advanced to the terminal ileum. The colonoscopy was performed without difficulty. The patient tolerated the procedure well. The quality of the bowel preparation was fair. The terminal ileum was photographed. Scope In: 7:36:56 AM Scope Withdrawal Time 0 hours 18 minutes 5 seconds Scope Out: 8:03:04 AM Total Procedure Duration Time 0 hours 26 minutes 8 seconds Findings: The perianal and digital rectal examinations were normal. The colon (entire examined portion) appeared normal. Patchy mucosal changes characterized by congestion (edema) and erythema were found in the terminal ileum. Biopsies were taken with a cold forceps for histology. Verification of patient identification for the specimen was done. Estimated blood loss was minimal. Impression: - Preparation of the colon was fair. - The entire examined colon is normal. - Mucosal changes were found in the ileum secondary to ileitis. Biopsied. Recommendation: - Discharge patient to home. - Resume previous diet. - Continue present medications. - Await pathology results. - Repeat colonoscopy is recommended for surveillance. The colonoscopy date will be determined after pathology results from today's exam become available for review. Procedure Code(s): --- Professional --- 27377, Colonoscopy, flexible; with biopsy, single or multiple CPT copyright 2021 [employer]. All rights reserved. The codes documented in this report are preliminary and upon biomaterials engineer review may be revised to meet current compliance requirements. Mikey Whelan DO 12/27/2023 8:13:59 AM This report has been signed electronically. Number of Addenda: 0 Note Initiated On: 12/27/2023 7:11 AM
--- NOTE | 2023-12-27 08:15 | OP.CCLET_ITS ---
12/27/2023 Pascual Allen [address] [place] [address] Re : Colonoscopy procedure for Kole Jurado Dear Dr. Allen This procedure was performed on Wednesday, December 27, 2023. My impressions and recommendations are as follows: Impressions : - Preparation of the colon was fair. - The entire examined colon is normal. - Mucosal changes were found in the ileum secondary to ileitis. Biopsied. Recommendations : - Discharge patient to home. - Resume previous diet. - Continue present medications. - Await pathology results. - Repeat colonoscopy is recommended for surveillance. The colonoscopy date will be determined after pathology results from today's exam become available for review. My findings are described in the full procedure note, which is enclosed. If I can be of further assistance, please feel free to contact me at . Sincerely, Mikey Whelan, 12/27/2023 8:13:59 AM This report has been signed electronically.
--- NOTE | 2023-12-27 08:24 | PCM.POST.ANE ---
Anesthesia: Postop Eval I Current Vital Signs Temperature: 98.3 F Pulse Rate: 95 Blood Pressure: 100/58 Respiratory Rate: 17 Pulse Ox: 94 Assessment Airway patent: Yes Spontaneous unlabored respirations: Yes nausea: No Vomiting: No Anesthesia Complication: No Fluid Hydration Crystalloid volume administer (ml): 200 Total IV fluid infused: 200 Progress Note Anesthesia document: Postop Eval 1 completed: Yes
--- NOTE | 2023-12-27 08:25 | POSTOPAN2_ITS ---
Anesthesia Postop Eval I Sum Postop Eval Completion status Anesthesia document: Postop Eval 1 completed: Yes Anesthesia Postop Eval I Summary Anesthesia Postop Eval I Summary: Anesthesia Postop Eval I: Assessment Summary Airway patent Yes 12/27/23 08:24 PLANNING CONSULTANT.[email or web address] Spontaneous unlabored Yes 12/27/23 08:24 PLANNING CONSULTANT.[email or web address] respirations Mental status nausea No 12/27/23 08:24 PLANNING CONSULTANT.JCOTE Vomiting No 12/27/23 08:24 PLANNING CONSULTANT.JCOTE Anesthesia Postop Eval I: Fluid Summary Crystalloid volume administer 200 12/27/23 08:24 PLANNING CONSULTANT.JCOTE (ml) Colloids volume administered ( ml) Blood Product volume administered (ml) Total IV fluid infused 200 12/27/23 08:24 PLANNING CONSULTANT.JCOTE Anesthesia Postop Eval I: Summary Notes Anesthesia Complication No 12/27/23 08:24 PLANNING CONSULTANT.JCOTE Anesthesia Complication Comment: Post-operative progress note Anesthesia: Postop Eval II Evaluation Mental status: Awake Pain Level: 5 (right flank pain patient complained of this prior to arrival to procedure room) nausea: No Vomiting: No
--- NOTE | 2023-12-27 08:25 | PCM.POSTANE2 ---
Anesthesia Postop Eval I Sum Postop Eval Completion status Anesthesia document: Postop Eval 1 completed: Yes Anesthesia Postop Eval I Summary Anesthesia Postop Eval I Summary: Anesthesia Postop Eval I: Assessment Summary Airway patent Yes 12/27/23 08:24 RN POST PARTUM.[email or web address] Spontaneous unlabored Yes 12/27/23 08:24 RN POST PARTUM.[email or web address] respirations Mental status nausea No 12/27/23 08:24 RN POST PARTUM.JCOTE Vomiting No 12/27/23 08:24 RN POST PARTUM.JCOTE Anesthesia Postop Eval I: Fluid Summary Crystalloid volume administer 200 12/27/23 08:24 RN POST PARTUM.JCOTE (ml) Colloids volume administered ( ml) Blood Product volume administered (ml) Total IV fluid infused 200 12/27/23 08:24 RN POST PARTUM.JCOTE Anesthesia Postop Eval I: Summary Notes Anesthesia Complication No 12/27/23 08:24 RN POST PARTUM.JCOTE Anesthesia Complication Comment: Post-operative progress note Anesthesia: Postop Eval II Evaluation Mental status: Awake Pain Level: 5 (right flank pain patient complained of this prior to arrival to procedure room) nausea: No Vomiting: No
[2023-12-27 08:46] LABS: Ferritin 291 ng/mL (26-388); Iron 21 ug/dL (65-175); Iron Binding Capacity,Total 238 ug/dL (250-450); LDH 245 U/L (87-241)
[2023-12-27 08:57] LABS: Erythrocyte Sedimentation Rate 25 mm/hr (0-20)
[2023-12-27 09:36] LABS: International Normalized Ratio 1.2; Partial Thromboplast Time 30.6 Seconds (24.1-36.2); Prothrombin Time (Protime)PT. 15.5 SECONDS (11.7-14.9)
[2023-12-27] MEDS: Senna/Docusate Sodium 1 Tablet 2 TABLET PO (09:47)
[2023-12-27 09:51] LABS: Lactic Acid 1.8 mmol/L (0.4-1.9)
--- NOTE | 2023-12-27 12:52 | DCINST_ITS ---
Discharge Instructions Diet Discharge Diet: No restrictions Activity Discharge Activity: Return to Normal Activity Return to work on:: 01/01/24 Weight Bearing Status: Full weight bearing Follow Up Care Test Results: Test results from this visit will be discussed in further detail at your follow- up appointment, if applicable. Discharge Plan Admission Admit Date/Time: 12/25/23 15:00 Primary Reason for Your Visit: hepatic mass Attending Provider: Gus Baez Primary Care Provider: Pascual Allen Consulting Providers: Santy Torres; Naina Avelar; Aubrey Dixon Discharge Orders/Prescriptions Prescriptions: New tramadol 50 mg tablet See Rx Instructions .ROUTE .COMPLEX PRN (Reason: pain) 7 Days Qty: 40 0RF Rx Instructions: one or two every six hours as needed for pain methocarbamol 500 mg tablet 500 mg PO TID Qty: 30 0RF Rx Instructions: one three times a day as needed for back pain/muscle spasm Continued lisinopril 20 MG tablet 20 mg PO DAILY naproxen 500 MG tablet 500 mg PO BID Qty: 20 0RF hydrochlorothiazide 25 mg tablet 25 mg PO DAILY lisinopril 40 mg tablet 40 mg PO DAILY Referrals / Follow Up: Mikey Whelan DO [Med Staff - Active Staff] - See Referral Note (in 3 weeks) Pascual Allen MD [Primary Care Provider] - See Referral Note (in two weeks) Disposition Disposition (needs filled in before D/C Order can be placed): Home, Self Care
--- NOTE | 2023-12-27 13:02 | DS.PCM_ITS ---
Providers Date of Admission: 12/25/23 Date of Discharge: 12/27/23 Primary Care Physician: Dr. Pascual Allen MD Consultations 12/25/23 16:04 Consult: General Surgery Routine Consulting Provider: Santy Torres Reason for Consult: Cecal mass, ?colonoscopy EMERGENT Consult: No Notified: Yes Date Notified: 12/25/23 Time Notified: 15:07 Method of Notification: Verbal 12/26/23 17:34 Consult: Gastroenterology Routine Consulting Provider: [facility] Reason for Consult: Colonoscopy for cecal mass surgery could not get through EMERGENT Consult: No Notified: Yes Date Notified: 12/26/23 Time Notified: 18:04 Method of Notification: Text Reason For Visit: LIVER MASSES Diagnosis Discharge Diagnosis (1) Intractable abdominal pain: Status: Acute Code(s): R10.9 - Unspecified abdominal pain (2) Liver masses: Status: Acute Code(s): R16.0 - Hepatomegaly, not elsewhere classified (3) Cecum mass: Status: Acute Code(s): K63.89 - Other specified diseases of intestine Plan 1. Hepatic neoplasm #2 abdominal pain secondary to #1 #3 essential hypertension #4 leukocytosis-etiology unclear Medications at Discharge Home Medications lisinopril 20 mg tablet 20 mg PO DAILY 12/31/18 naproxen 500 mg tablet 500 mg PO BID #20 tabs 01/01/19 hydrochlorothiazide 25 mg tablet 25 mg PO DAILY 12/25/23 lisinopril 40 mg tablet 40 mg PO DAILY 12/25/23 methocarbamol 500 mg tablet 500 mg PO TID #30 tabs 12/27/23 tramadol 50 mg tablet See Rx Instructions .Route .COMPLEX PRN pain 7 days #40 tabs 12/27/23 Hospital Course Operations None Procedures Colonoscopy and - (Hepatic needle biopsy) Summary of Care Provided Minutes Spent on Discharge: 31 Hospital Course: This 58-year-old white male was seen in the emergency room at [facility] due to abnormal labs done as an outpatient. Patient was also complaining of right upper quadrant abdominal pain for the last 2 months, patient stated that the pain had been getting worse and was not constant. He went to his PCP the day before he was seen in the ER and had outpatient labs and a CT scheduled, they noticed a very high white blood cell count and he was advised to go to the emergency room at [facility] for evaluation. Patient states that the pain was severe, CBC was repeated in the emergency room and his white count was 23,000, CT obtained showed multiple liver masses and a cecal mass. Patient was admitted to [place] [address] and seen in consultation by general surgery, general surgery was concerned that a colonoscopy could not be performed due to possible obstruction in the cecum. They requested gastroenterology performed the colonoscopy and consult on the patient. Patient did undergo a needle biopsy of the liver under CT direction Colonoscopy was performed and there was no cecal mass noted. On 12/27/2023, patient was seen and examined: On examination he appeared in good health and spirits. Vital signs as documented. Skin warm and dry and without overt rashes. Neck without JVD, neck was supple, trachea midline, thyroid was normal. Lungs clear bilaterally, normal air movement was noted. Heart exam notable for regular rhythm, normal sounds and absence of murmurs, rubs or gallops. Abdomen unremarkable and without evidence of organomegaly, masses, or abdominal aortic enlargement. Bowel sounds are present, abdomen is not distended. Extremities nonedematous, no cyanosis was noted, no clubbing was noted. Neuro: Cranial nerves II through XII are grossly intact, no focal motor deficits were noted, sensation to light touch and pinprick intact, motor exam 5/5 throughout. Psych: Patient is alert and oriented x3, he does not appear anxious or depressed, he does not appear agitated. Patient appears stable for discharge home on 12/27/2023, patient was instructed to follow-up on Friday or Friday of this week to get a repeat CBC at his PCPs office, the etiology of the patient's leukocytosis was not elucidated. 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 Will interview pt at time of follow up re: diet/wt hx, etc and make additional rec as indicated Weight / BMI Weight Weight: 141.9 kg Body Mass Index (BMI) 46.2 ABG / Lab / Microbiology Data 12/26/23 05:15 12/27/23 05:10 Laboratory: Laboratory Results - last 24 hr 12/27/23 05:10: ESR 25 H, Sodium 134 L, Potassium 3.6, Chloride 102, Carbon Dioxide 27.0, Anion Gap 5, BUN 23 H, Creatinine 1.19, Estim Creat Clear Calc 96.08, Est GFR (MDRD) Af Amer 81, Est GFR (MDRD) Non-Af 67, BUN/Creatinine Ratio 19.3, Glucose 99, Calcium 10.4 H, Iron 21 L, TIBC 238 L, Ferritin 291, Total Bilirubin 0.40, AST 37, ALT 43, Alkaline Phosphatase 180 H, Lactate Dehydrogenase 245 H, C-React Prot Ext Range 94.60 H, Total Protein 6.3 L, A lbumin 2.3 L, Globulin 4.0, Albumin/Globulin Ratio 0.6 L 12/27/23 09:10: PT 15.5 H, INR 1.2, APTT 30.6, Lactic Acid 1.8 Microbiology: Microbiology 12/25/23 12:44 Blood Culture (Wb) - Anticubital Left Blood Culture - Preliminary No growth in 48 hours. 12/26/23 Unknown Aspirate - Abdominal Gram Stain - Final 12/26/23 Unknown Aspirate - Abdominal Wound Culture - Preliminary No growth-Final to follow 12/26/23 00:02 Urine, Clean Catch Urine Culture - Preliminary Culture exhibits no growth. D/C Instructions Discharge Diet: No restrictions Return to work on: 01/01/24 Weight Bearing Status: Full weight bearing Meaningful Use Info Meaningful Use Meaningful Use Diagnoses (Choose all that apply): None applicable Ischemic Stroke Statin Dosing Therapy Reference: STATIN DOSE THERAPY REFERENCE: * Patients > 75 years receive moderate or high dose statin therapy. * Patients 75 years or YOUNGER should receive HIGH intensity statin dose unless contraindicated. You will be required to document reason for non-treatment if statin daily dose does not meet guidelines. HIGH DOSE STATIN THERAPY DAILY Atorvastatin > than or = to 40 mg Rosuvastatin > than or = to 20 mg Amlodipine + Atorvastatin > than or = to 2.5/40 mg Ezetimibe + Simvastatin 10/80 mg Simvastatin 80mg Discharge Plan Admission Admit Date/Time: 12/25/23 15:00 Primary Reason for Your Visit: hepatic mass Attending Provider: Gus Baez Primary Care Provider: Pascual Allen Consulting Providers: Santy Torres; Naina Avelar; Aubrey Dixon Discharge Orders/Prescriptions Prescriptions: New tramadol 50 mg tablet See Rx Instructions .ROUTE .COMPLEX PRN (Reason: pain) 7 Days Qty: 40 0RF Rx Instructions: one or two every six hours as needed for pain methocarbamol 500 mg tablet 500 mg PO TID Qty: 30 0RF Rx Instructions: one three times a day as needed for back pain/muscle spasm Continued lisinopril 20 MG tablet 20 mg PO DAILY naproxen 500 MG tablet 500 mg PO BID Qty: 20 0RF hydrochlorothiazide 25 mg tablet 25 mg PO DAILY lisinopril 40 mg tablet 40 mg PO DAILY Referrals / Follow Up: Mikey Whelan DO [Med Staff - Active Staff] - See Referral Note (in 3 weeks) Pascual Allen MD [Primary Care Provider] - See Referral Note (in two weeks) Disposition Disposition (needs filled in before D/C Order can be placed): Home, Self Care Charges/Coding Visit Charges Inpatient E&M: 35397 Disch Hosp >30min
[2023-12-27] MEDS: traMADol 50 MG Tablet 100 MG PO (13:06)
--- NOTE | 2023-12-27 14:47 | CASEMGMT ---
DENIA BOLANOS Assessment: Face to Face with pt for initial transition planning/care coordination assessment. RN CICI introduced self and role at [facility], pt voices understanding and consents to assessment. Pt is A&O x4 and answers all questions appropriately at this time. Pt sitting up in chair in no distress. in room, pt agreeable to answering questions with present. Care providers, pharmacy, and demographics verified/updated. Admitting Dx: Liver mass PCP: Alejandro Specialists: Denies Preferred Pharmacy: [facility] Insurance: MMO Prescription Benefit: yes LNOK: , Sara Living Arrangements: Pt lives with in a 2 story home with 13 steps to enter. ADLs: Pt states I at home. Transportation: Pt drives self and denies concerns with transportation. DME: CPAP HHC/SNF: Denies Hx of. Pt states no concerns with going home at time of dc. Pt states no further concerns/needs. CM to follow. Advised pt to ask CM if any further question/concerns/needs arise, voices understanding. Pt Goal: Home Plan: Home with family support. Philip LOZA CM
[2023-12-30 16:10] LABS: Anti-Centromere B Ab <0.2 AI (0.0-0.9); Anti-Chromatin <0.2 AI (0.0-0.9); Anti-Jo <0.2 AI (0.0-0.9); Anti-Mitochondrial AB 71.3 Units (0.0-20.0); Anti-Scleroderma-70 AB <0.2 AI (0.0-0.9); Anti-dsDNA Ab <1 IU/mL (0-9); RNP Ab <0.2 AI (0.0-0.9); SJOGREN'S Anti-SS-A test < 0.2 AI (0.0-0.9); SJOGREN'S Anti-SS-B test < 0.2 AI (0.0-0.9); Smith Ab <0.2 AI (0.0-0.9)
[2024-01-01 04:07] LABS: AFP, Tumor Marker 2.5 ng/mL (0.0-8.4)
[2024-01-01 09:09] LABS: Angiotensin Convert Enzyme 20 U/L (14-82); Anti-Smooth Muscle ABS 4 Units (0-19); Carbohydrate AG 19-9 60 U/mL (0-35); Carcinoembryonic Antigen < 0.6 ng/mL (0.0-4.7); Chromogranin A 93.2 ng/mL (0.0-101.8); Cytoplasmic Ab (C-ANCA) <1:20 titer (Neg:<1:20); Deamidated Gliadin IgA 4 units (0-19); Deamidated Gliadin IgG 5 units (0-19); Dopamine, Pl <30 pg/mL (0-48); Endomysial Antibody IgA Negative (Negative); Epinephrine, Pl 39 pg/mL (0-62); Gastrin, Serum 13 pg/mL (0-115); HEPATITIS B SURFACE AG Negative (Negative); Hep C Antibodies Non Reactive (Non Reactive); Hepatitis A IgM Antibody Negative (Negative); Hepatitis B Core AB IgM Negative (Negative); Immunoglobulin A 202 mg/dL (90-386); Norepinephrine, Pl 516 pg/mL (0-874); Perinuclear Ab (P-ANCA) <1:20 titer (Neg:<1:20); QNTFERON TB Mitogen Value 4.36 IU/mL (.); QNTFERON TB Nil Value 0.09 IU/mL (.); QNTFERON TB1+ Ag Value 0.09 IU/mL (.); QNTFERON TB2+ Ag Value 0.08 IU/mL (.); QNTIFERON TB Positive Criteria Negative (Negative); Transferrin 176 mg/dL (177-329); t-Transglutaminase IgA <2 U/mL (0-3)
== END 2023-12-27 14:52 | disposition home or self-care (01) | DRG 436 ==
LOC: ED 12:28 → MS3 15:54
PROVIDERS: Family Medicine; Internal Medicine Gastroenterology; Nurse Practitioner; Admitting Provider Internal Medicine; Emergency Provider Emergency Medicine; PCP Internal Medicine; Visit Provider Internal Medicine
PROC: 0DJD8ZZ Inspection of Lower Intestinal Tract, Via Natural or Artificial Opening Endoscopic (ICD-10-PCS; CPT 45378; principal; 2023-12-27 07:00)
DX: C22.9 Malignant neoplasm of liver, not specified as primary or secondary (principal); E46 Unspecified protein-calorie malnutrition; Z68.42 Body mass index [BMI] 45.0-49.9, adult; I10 Essential (primary) hypertension; D72.829 Elevated white blood cell count, unspecified; E66.01 Morbid (severe) obesity due to excess calories; E83.52 Hypercalcemia; K52.9 Noninfective gastroenteritis and colitis, unspecified; Z87.891 Personal history of nicotine dependence; R79.89 Other specified abnormal findings of blood chemistry; Z79.899 Other long term (current) drug therapy; K63.89 Other specified diseases of intestine
CPT/HCPCS: 36415; 74177; 77012; 80048; 80053; 80074; 80076; 81001; 82105; 82164; 82306; 82378; 82384; 82728; 82784; 82941; 83516; 83540; 83550; 83605; 83615; 83690; 83735; 83970; 84100; 84466; 85025; 85610; 85652; 85730; 86140; 86225; 86235; 86255; 86256; 86301; 86316; 86480; 87040; 87070; 87075; 87086; 87205; 88108; 88172; 88305; 88307; 88313; 88341; 88342; 94668; 99156; 99284; J7030; J7040; Q9967; A4216; J2405; J2430

== ENCOUNTER 2023-12-31 12:19 | Emergency (ER) | payer OTHER, SELFPAY ==
[2023-12-31 12:19] VITALS: BP 135/74; PULSE 88; RESP 18; TEMP 36.2; O2SAT 98
--- NOTE | 2023-12-31 13:22 | EDS_ITS ---
HPI History of Present Illness Chief Complaint: Other, Pain/Inj Informant: patient and PCP Narrative Narrative: Sent in from PCP office Dr. Allen, I spoke with him prior to patient's arrival. Patient discharged in the hospital 4 days ago after 2-day stay for abdominal pain with new liver mass and cecal mass. He had recent weight loss. Colonoscopy with terminal ileum biopsies were negative. He had a liver biopsy in the hospital is pending results. Patient admits he went home on tramadol was feeling fine however pain started to increase last 2 days worsening yesterday. No fevers or chills. Follow-up with PCP today from his hospitalization was sent here due to his pain. [facility] Medical History Encounter for examination required by Department of Transportation (DOT) Home Medications ?Medication ?Instructions ?Recorded ?Last Taken ?Type lisinopril 20 mg tablet 20 mg PO DAILY 12/31/18 12/31/18 History naproxen 500 mg tablet 500 mg PO BID #20 tabs 01/01/19 Unknown Rx hydrochlorothiazide 25 mg tablet 25 mg PO DAILY 12/25/23 Unknown History lisinopril 40 mg tablet 40 mg PO DAILY 12/25/23 Unknown History methocarbamol 500 mg tablet 500 mg PO TID #30 tabs 12/27/23 Unknown Rx tramadol 50 mg tablet See Rx Instructions .Route 12/27/23 Unknown Rx .COMPLEX PRN pain 7 days #40 tabs oxycodone-acetaminophen 5 mg-325 1 tab PO Q6H PRN PRN Pain 3 days 12/31/23 Unknown Rx mg tablet #12 TABLETS Allergy/AdvReac Type Severity Reaction Status Date / Time No Known Allergies Allergy Verified 12/31/23 12:19 Social History Smoking Status: Former smoker ROS ROS ED Constitutional Constitutional ED: Denies chills, fever(s) or sweats Eyes Eyes: Denies change in vision ENT ENT ED: Denies dysphagia or sore throat Cardiovascular Cardiovascular: Denies chest pain, leg edema, palpitations or racing heartbeat Respiratory/Chest Respiratory/Chest: Denies cough, dyspnea or dyspnea on exertion Gastrointestinal Gastrointestinal: Reports abdominal pain; Denies diarrhea, nausea or vomiting Genitourinary Genitourinary ED: Denies dysuria, hematuria or urinary frequency Musculoskeletal Musculoskeletal: Denies back pain, extremity pain or neck pain Integumentary Denies rash or wounds Neurologic Neurologic: Denies headache(s), paresthesias or weakness EXAM Physical Exam Const Vital Signs: 12/31/23 12:19 12/31/23 13:30 12/31/23 14:19 Temperature 97.1 F L Temperature Source Temporal Pulse Rate 88 62 Respiratory Rate 18 16 Respiratory Pattern Normal Blood Pressure 135/74 H 149/69 H Blood Pressure Mean 94 95 Pulse Ox 98 96 Oxygen Delivery Method Room Air 12/31/23 15:45 Temperature 97.2 F L Temperature Source Pulse Rate 62 Respiratory Rate 16 Respiratory Pattern Blood Pressure 149/69 H Blood Pressure Mean 95 Pulse Ox 96 Oxygen Delivery Method Positive well nourished and well developed Constitutional Narrative: Uncomfortable, nontoxic General Appearance ED: well developed HEENT Reports moist mucous membranes normocephalic and atraumatic Eyes EOMs intact bilaterally and conjunctivae normal General Eye ED: Yes normal appearance of both eyes Neck no lymphadenopathy and supple General: Negative for tenderness Chest Wall Chest: Negative for tenderness Resp normal respiratory effort and normal air movement Effort and Inspection: symmetric chest movement; Negative for respiratory distress Cardio regular rate, regular rhythm and no murmurs Peripheral Pulses: pulses 2+ throughout GI normal to inspection, nondistended, normoactive bowel sounds GI Narrative: Tender right upper quadrant epigastric region. Back/Spine no CVA tenderness and no thoracic nor lumbar tenderness Extremity normal to inspection General Extremety ED: Negative for edema or tenderness General Extremity: Negative for edema Neuro oriented x3 and no sensory deficits noted Sensorium / Orientation: awake and alert Skin no rashes or lesions noted and no wounds MDM MDM MDM Narrative Medical decision making narrative: Interventions / MDM: Differential diagnosis: Liver masses, cecal mass Diagnosis considered but do not suspect: Pneumoperitoneum however CT negative. My EKG interpretation: N/A Imaging independently reviewed and interpreted by myself: CT abdomen pelvis IV contrast. No pneumoperitoneum. Stable liver mass and cecal mass. Reported small subhepatic fluid noted likely from recent biopsy however per report from radiology possible metastasis. External documents reviewed: N/A Test considered but not ordered:N/A ED course: Upper abdominal tenderness recent liver mass and cecal mass. Recent CT biopsy. IV was established fluids Zofran morphine. Abdominal labs. CT scan ordered for further evaluation. Pain controlled CT stable labs stable leukocytosis of 20. No infectious symptoms. Urine 25 leukocytes. He is asymptomatic. Note cough. I did rediscuss with his PCP Dr. Allen, with pain better controlled, will switch him over oxycodone to help. He will use tramadol for breakthrough pain. He has a follow-up with GI tomorrow. He will keep this appointment. Return precautions. All questions were answered. Re-evaluation: stable Disposition discussed with patient/family/significant other: Patient and significant other Case discussed with consulting clinician: N/A This note was generated with [employer] dictation software. It may contain incorrect words, spelling, and punctuation that were not noted in checking the note before signing. Lab Data Attestation: I reviewed the patient's lab results. Labs: Laboratory Results - last 24 hr 12/31/23 12/31/23 13:27 14:57 WBC 20.3 H RBC 4.38 L Hgb 10.5 L Hct 33.2 L MCV 75.8 L MCH 24.0 L MCHC 31.6 L RDW Std Deviation 45.6 H RDW Coeff of Tiffany 17.0 H Plt Count 305 MPV 8.6 Immature Gran % (Auto) 0.800 Neut % (Auto) 84.7 H Lymph % (Auto) 7.8 L [place] % (Auto) 5.8 Eos % (Auto) 0.5 Baso % (Auto) 0.4 Absolute Neuts (auto) 17.2 H Absolute Lymphs (auto) 1.59 Nucleated RBC % 0 Sodium 134 L Potassium 3.8 Chloride 100 Carbon Dioxide 28.0 Anion Gap 7 BUN 13 Creatinine 0.81 Est GFR (MDRD) Af Amer 127 Est GFR (MDRD) Non-Af 105 BUN/Creatinine Ratio 16.1 Glucose 78 Calcium 9.1 Total Bilirubin 0.50 AST 48 H ALT 48 Alkaline Phosphatase 211 H Total Protein 6.8 Albumin 2.2 L Globulin 4.6 H Albumin/Globulin Ratio 0.5 L Lipase 24 Urine Color Yellow Urine Clarity Sl. Cloudy Urine pH 6.0 Ur Specific Thayer 1.015 Urine Protein 30 H Urine Glucose (UA) Normal Urine Ketones 50 H Urine Occult Blood 10 H Urine Nitrite Negative Urine Bilirubin Negative Urine Urobilinogen 1 H Ur Leukocyte Esterase 25 H Urine RBC 0 SEEN Urine WBC 0-5 SEEN Ur Squamous Epith Cells 0-5 SEEN Urine Bacteria 0 SEEN Urine Mucus 1+ Radiography Diagnostic Testing: Clinical Impression(s) from Imaging Studies Abdomen/Pelvis CT 12/31/23 13:55 IMPRESSION: New small right pleural effusion with right basilar atelectasis and/or infiltrate. Stable large hypodense masses in the right lobe of the liver with a small subhepatic fluid collection with nodular density suggestive of possible metastasis. Stable large cystic mass in the region of the cecum. Electronically Signed: Zana Amezquita MD at 14:25 EDT , Discharge Plan Triage Chief Complaint: Other, Pain/Inj ED Provider: Daniel Villalpando Dx/Rx/DC Orders Clinical Impression: Liver masses, Cecum mass, Leukocytosis, Abdominal pain Instructions: Abdominal Pain Prescriptions: New oxycodone-acetaminophen 5-325 mg tablet 1 tab PO Q6H PRN PRN (Reason: Pain) 3 Days Qty: 12 0RF No Action lisinopril 20 MG tablet 20 mg PO DAILY naproxen 500 MG tablet 500 mg PO BID Qty: 20 0RF hydrochlorothiazide 25 mg tablet 25 mg PO DAILY lisinopril 40 mg tablet 40 mg PO DAILY tramadol 50 mg tablet See Rx Instructions .ROUTE .COMPLEX PRN (Reason: pain) 7 Days Qty: 40 0RF Rx Instructions: one or two every six hours as needed for pain methocarbamol 500 mg tablet 500 mg PO TID Qty: 30 0RF Rx Instructions: one three times a day as needed for back pain/muscle spasm Primary Care Provider: Pascual Allen Referrals: Pascual Allen MD [Primary Care Provider] - 5-7 Days Activity Restrictions/Additional Instructions: CT scan with stable masses. Your liver biopsy is pending. Keep your follow-up with your doctors. Use oxycodone for pain control. If needed can use tramadol for breakthrough pain. Print Language: Azeri Disposition Disposition: Home, Self Care
[2023-12-31 13:40] LABS: Absolute Lymphocyte Count 1.59 X10^3/uL (0.83-4.51); Absolute Neutrophil Count 17.2 X10^3/uL (2.0-7.7); Basophil# 0.09 X10^3/uL; Basophil% 0.4 % (0-1); Eosinophils% 0.5 % (0-5); Hematocrit 33.2 % (40-54); Hemoglobin 10.5 g/dL (13.0-16.5); Lymphocyte # 1.59 X10^3/ul (0.83-4.51); Lymphocyte % 7.8 % (19-41); Mean Corp Hgb Conc 31.6 g/dL (32-36); Mean Corpuscular Volume 75.8 fL (80-94); Mean Platelet Vol. 8.6 fl (6.2-12.0); Monocyte# 1.18 X10^3/uL; Monocyte% 5.8 % (0-10); NRBC Flagged by Analyzer 0 % (0-5); Neutrophil # 17.18 X10^3/uL (2.7-7.7); Neutrophil % 84.7 % (47-70); Platelet Count 305 K/mm3 (150-450); RBC Distribution Width SD 45.6 fl (35.1-43.9); Red Blood Count 4.38 M/mm3 (4.6-6.2); White Blood Count 20.3 K/mm3 (4.4-11.0)
[2023-12-31] MEDS: Ondansetron 4 MG/2 ML Vial IV (13:42)
[2023-12-31] MEDS: 0.9% Normal Saline (1000mL) 1,000 ML 1000 ML IV (13:42)
[2023-12-31] MEDS: Morphine 4 MG/ML Syringe IV (13:42)
[2023-12-31 13:55] LABS: ALB/GLOB Ratio 0.5 RATIO (0.9-2.4); AST(SGOT) 48 U/L (15-37); Alanine Aminotransfer ALT/SGPT 48 U/L (16-61); Albumin, Serum 2.2 g/dL (3.2-5.0); Alkaline Phosphatase 211 U/L (45-117); Anion Gap 7 (5-15); BUN 13 mg/dL (7-18); BUN/Creat Ratio 16.1 RATIO (10-20); Calcium,Total 9.1 mg/dL (8.5-10.1); Chloride 100 mmol/L (98-107); Creatinine, Serum 0.81 mg/dL (0.70-1.30); EST Glomerular Filtration Rate 105 mL/min (>60); Est Glom Filt Rate - Afr Amer 127 mL/min (>60); Globulin 4.6 g/dL (2.2-4.2); Glucose 78 mg/dL (74-106); Lipase 24 U/L (13-75); Potassium 3.8 mmol/L (3.5-5.1); Protein, Total 6.8 g/dL (6.4-8.2); Sodium Level 134 mmol/L (136-145)
--- NOTE | 2023-12-31 13:55 | CT_ITS ---
STUDY: CT ABDOMEN AND PELVIS WITH CONTRAST REASON FOR EXAM: Male, 58 years old. Pain -- Recent liver mass, cecal mass, recent CT biopsy of RADIATION DOSAGE (If Supplied By Facility): CTDIvol = ( 15.41 ) mGy, DLP = ( 1694.96 ) mGycm TECHNIQUE: Transaxial images were obtained from the dome of the diaphragm to the symphysis pubis without oral contrast. IV 100mL Isovue-370 was administered. Sagittal and coronal images were reconstructed. Individualized dose optimization techniques were used for this CT. COMPARISON: Comparison is made with prior study December 25, 2023. FINDINGS: New right pleural effusion with right basilar atelectasis. Atelectasis in the right middle lobe. The visualized portions of the heart are within normal limits. Hepatomegaly. Stable appearance of the hypodense masses in the right lobe of the liver. There is evidence of a small subhepatic fluid collection along the anterior superior aspect of the right lobe of the liver most likely secondary to recent biopsy/drainage. Nodular densities are seen. Metastatic deposit should be ruled out. Normal gallbladder and extrahepatic biliary system. Normal spleen. Normal pancreas. Normal bilateral adrenal glands. Normal right kidney. Normal left kidney. Normal visualized stomach. Normal small intestine. Persistent large cystic mass in the region of the cecum. No evidence of bowel obstruction. The appendix is visualized and appears normal. Normal abdominal aorta. Normal inferior vena cava. Normal retroperitoneum. Normal urinary bladder. Normal abdominal wall. Normal osseous structures. CT/Abdomen/Pelvis W IV Cont ONLY IMPRESSION: New small right pleural effusion with right basilar atelectasis and/or infiltrate. Stable large hypodense masses in the right lobe of the liver with a small subhepatic fluid collection with nodular density suggestive of possible metastasis. Stable large cystic mass in the region of the cecum. Electronically Signed: Zana Amezquita MD at 14:25 EDT ,
[2023-12-31 14:19] VITALS: BP 149/69; PULSE 62; RESP 16; O2SAT 96
[2023-12-31 15:12] LABS: Bacteria 0 SEEN /hpf (None Seen); Red Blood Cells-Urine 0 SEEN /hpf (0-5)
[2023-12-31 15:23] LABS: Color, Urine Yellow (Yellow); Glucose, Dipstick Normal (Normal); Ketone-Dipstick 50 mg/dl (Negative); Leukocyte Esterase-Dipstick 25 /ul (Negative); Nitrite-Dipstick Negative (Negative); Occult Blood-Urine 10 /ul (Negative); Protein-Dipstick 30 mg/dl (Negative); Specific Gravity, Urine 1.015 (1.002-1.030); Urine Bilirubin Dipstick Negative (Negative); Urine Clarity Sl. Cloudy (Clear); Urine Urobilinogen 1 mg/dl (Normal)
[2023-12-31 15:34] LABS: Mucous, Urine 1+ /hpf (<or=2+); Squamous Epithelial Cells - UA 0-5 SEEN /hpf (0-5); White Blood Cells 0-5 SEEN /hpf (0-5)
[2023-12-31 15:45] VITALS: BP 149/69; PULSE 62; RESP 16; TEMP 36.2; O2SAT 96
== END 2023-12-31 16:07 | disposition home or self-care (01) ==
PROVIDERS: Emergency Provider Emergency Medicine; PCP Internal Medicine; Referring Provider Emergency Medicine; Visit Provider Emergency Medicine
DX: R10.10 Upper abdominal pain, unspecified (principal); Z87.891 Personal history of nicotine dependence; R16.0 Hepatomegaly, not elsewhere classified; R19.09 Other intra-abdominal and pelvic swelling, mass and lump; D72.829 Elevated white blood cell count, unspecified
CPT/HCPCS: 74177; 80053; 81001; 83690; 85025; 96361; 96374; 96375; 99283; J7030; Q9967; A4216; J2405

== ENCOUNTER 2024-01-06 20:44 | Inpatient (IN) | payer OTHER, SELFPAY ==
[2024-01-06 20:44] VITALS: BP 131/86; PULSE 130; RESP 24; TEMP 36.8; O2SAT 93; BMI 47.6
[2024-01-06 20:51] VITALS: BP 131/86; PULSE 127; RESP 27; TEMP 36.8; O2SAT 93
--- NOTE | 2024-01-06 21:05 | CT_ITS ---
EXAM: CT ABDOMEN AND PELVIS WITH INTRAVENOUS CONTRAST CLINICAL INDICATION: abdominal pain TECHNIQUE: Helically acquired images were obtained of the abdomen and pelvis with intravenous contrast. This CT exam was performed using one or more of the following dose reduction techniques: automated exposure control, adjustment of the mA and/or kV according to patient size, and/or use of iterative reconstruction technique. CONTRAST: IV 100mL Isovue-370 RADIATION DOSE: CTDIvol = 17.07 mGy, DLP = 1415.55 mGy-cm COMPARISON: 12/31/2023 and 12/25/2023. FINDINGS: LOWER THORAX: Atelectasis in the right lung base. No cardiomegaly. No significant pericardial effusion. ABDOMEN: LIVER: Unremarkable. No change in the extensive bulky masses in the right lobe of the liver. GALLBLADDER AND BILE DUCTS: Unremarkable. No calcified gallstones. No gallbladder distention or wall edema. No intra- or extrahepatic biliary ductal dilation. PANCREAS: Unremarkable. No focal cystic or solid mass. SPLEEN: Unremarkable. Normal size without focal cystic or solid mass. ADRENALS: Unremarkable. No nodules. KIDNEYS AND URETERS: Unremarkable. Normal renal size and position. No hydronephrosis. STOMACH AND BOWEL: Unremarkable. No stomach or bowel distention. No focal inflammatory change. No change in the bulky mass involving the cecum and ascending colon. PELVIS: APPENDIX: No evidence of acute appendicitis. BLADDER: Unremarkable. REPRODUCTIVE: Unremarkable as visualized. No mass. ABDOMEN and PELVIS: INTRAPERITONEAL SPACE: Slight ascites. No free air. BONES/JOINTS: Unremarkable. No suspicious lytic or blastic abnormality. SOFT TISSUES: Unremarkable. No discrete abdominal or pelvic wall hernia. VASCULATURE: Unremarkable. Abdominal aorta is non-dilated. LYMPH NODES: Enlarged paradiaphragmatic lymph node anterior to the right lobe of the liver and enlarged periportal lymph nodes. CT/Abdomen/Pelvis W IV Cont ONLY IMPRESSION: 1. No change in the extensive bulky masses in the right lobe of the liver. 2. No change in the bulky mass involving the cecum and ascending colon. 3. Slight ascites. 4. Enlarged paradiaphragmatic lymph node anterior to the right lobe of the liver and enlarged periportal lymph nodes. 5. Atelectasis in the right lung base. Electronically Signed: Kole Beth MD at 22:39 EDT ,
--- NOTE | 2024-01-06 21:05 | EDS_ITS ---
HPI HPI - GI History of Present Illness Chief Complaint: Abd Pain Detail of Chief Complaint: Abdominal pain Informant: patient Narrative Narrative: Patient presents to the emergency department complaint of abdominal pain. Patient states that he was diagnosed yesterday with stage IV metastatic colon cancer to the liver. Patient presents with his via EMS for worsening abdominal pain today. Last bowel movement was 2 days ago. He denies nausea or vomiting. He denies diarrhea. He denies blood in his stool. Currently rates his pain a 9 out of 10. Patient's been taking Percocet for pain at home. Mehrdad carrillo tells me that he was referred to [facility] because of the rare type of tumor that he has. He has not begun any type of treatment. [facility] Medical History (Updated 01/06/24 @ 22:[address] Sheila Bowen DO) Sleep apnea Hypertension Mass of cecum Metastasis to liver Leukocytosis Intractable abdominal pain Encounter for examination required by Department of Transportation (DOT) Home Medications ?Medication ?Instructions ?Recorded ?Last Taken ?Type hydrochlorothiazide 25 mg tablet 25 mg PO DAILY 12/25/23 Unknown History lisinopril 40 mg tablet 40 mg PO DAILY 12/25/23 Unknown History oxycodone-acetaminophen 5 mg-325 See Rx Instructions PO Q4-6H PRN 01/05/24 Unknown Rx mg tablet Pain 7 days #84 TABLETS sennosides 8.6 mg-docusate sodium 2 tab-cap PO QHS constipation 01/06/24 Unknown History 50 mg tablet (Senokot-S) Allergy/AdvReac Type Severity Reaction Status Date / Time No Known Allergies Allergy Verified 01/06/24 20:51 Family History (Updated 01/05/24 @ 13:35 by Darby Estrada) Mother Cancer Sister Liver failure Social History (Updated 01/05/24 @ 13:34 by Darby Estrada) Smoking Status: Former smoker Tobacco: How many years used: 20 alcohol intake: never ROS ROS ED Review of Systems ROS Unobtainable: other Constitutional Constitutional ED: Reports lethargy; Denies chills, fever(s), sweats or weight loss Eyes Eyes: Denies blurry vision, change in vision or diplopia ENT ENT ED: Denies rhinorrhea or sore throat Cardiovascular Cardiovascular: Denies chest pain, orthopnea or racing heartbeat Respiratory/Chest Respiratory/Chest: Reports dyspnea; Denies cough, dyspnea on exertion, orthopnea or sputum Gastrointestinal Gastrointestinal: Reports abdominal pain; Denies diarrhea, nausea or vomiting Genitourinary Genitourinary ED: Denies dysuria, hematuria or urinary frequency Musculoskeletal Musculoskeletal: Denies arthralgias, back pain, myalgias or neck pain Integumentary Denies abscess, Abrasions or rash Neurologic Neurologic: Denies headache(s) or weakness Psychiatric Psychiatric: Denies anxiety, depression or suicidal thoughts Endocrine Endocrinology: Denies polydipsia, polyphagia or polyuria Hematologic/Lymphatic Hematologic/Lymphatic: Denies easy bleeding, easy bruising or lymphadenopathy Allergic/Immunologic Allergic/Immunologic ED: Denies mouth swelling, tongue swelling or urticaria EXAM Physical Exam Const Vital Signs: 01/06/24 20:44 01/06/24 20:51 01/06/24 21:51 Temperature 98.3 F 98.3 F 98.9 F Temperature Source Oral Oral Temporal Pulse Rate 130 H 127 H 125 H Respiratory Rate 24 H 27 H 25 H Blood Pressure 131/86 H 131/86 H 143/82 H Blood Pressure Mean 101 101 102 Pulse Ox 93 93 91 Oxygen Delivery Method Room Air Room Air Room Air 01/06/24 22:25 Temperature Temperature Source Pulse Rate 126 H Respiratory Rate 22 H Blood Pressure 125/74 H Blood Pressure Mean 91 Pulse Ox 91 Oxygen Delivery Method Room Air Positive well nourished and well developed General Appearance ED: well developed and NAD HEENT Reports TM's clear and moist mucous membranes normocephalic and atraumatic; Negative for trauma or tenderness Tympanic Membrane ED: Yes TM's clear Eyes PERRL and EOMs intact bilaterally General Eye ED: Negative for pale conjunctiva or scleral icterus Neck no lymphadenopathy, supple and no JVD General: Negative for tenderness Chest Wall inspection of chest normal and palpation of chest normal Chest: Negative for tenderness Resp normal respiratory effort and clear to auscultation bilaterally Effort and Inspection: Negative for respiratory distress or pain with movement Auscultation: Negative for rhonchi, wheezes or diminished lung sounds Cardio regular rate, regular rhythm, S1 normal heart sound, S2 normal heart sound and n o murmurs Peripheral Pulses: pulses 2+ throughout GI normal to inspection, nondistended, normoactive bowel sounds, soft to palpation, non-distended and no masses GI Narrative: Patient with diffuse tenderness on exam. There is no rebound or rigidity. There is guarding throughout. Back/Spine no CVA tenderness and no thoracic nor lumbar tenderness Extremity normal to inspection General Extremety ED: Negative for edema General Extremity: Negative for edema Neuro oriented x3, CN's II-XII intact bilaterally, no sensory deficits noted and gait normal Sensorium / Orientation: awake, alert, oriented to person, oriented to place and oriented to time Motor Exam: strength 5/5 throughout and strength abnormal Psych mental status grossly normal Skin no rashes or lesions noted and no wounds MDM MDM MDM Narrative Medical decision making narrative: Patient with worsening abdominal pain today. Recent diagnosis of metastatic colon cancer to liver stage IV. Being referred to [facility] for management. IV line established on arrival. He was medicated with Dilaudid and Zofran. CBC with differential obtained showed an elevated white count of 25.7 with hemoglobin 11 and platelet count of 435. Chemistries unremarkable. Lactate elevated at 3.7. LFTs unremarkable other than a slightly elevated alkaline phosphatase of 235 which is similar to prior. Lipase normal at 21. Urinalysis ordered and pending. CT scan of the abdomen pelvis with IV contrast ordered and results currently pending. Care of patient will be turned over to evening physician awaiting CT results and final disposition. I feel he will likely require admission for pain control. Patient tachycardic and tachypneic even at rest. He does appear to have some pleural effusions noted on CT scan that are likely malignant. Lab Data Attestation: I reviewed the patient's lab results. Labs: Laboratory Results - last 24 hr 01/06/24 21:15 WBC 25.7 H RBC 4.72 Hgb 11.1 L Hct 36.2 L MCV 76.7 L MCH 23.5 L MCHC 30.7 L RDW Std Deviation 49.9 H RDW Coeff of Tiffany 18.5 H Plt Count 435 MPV 8.8 Immature Gran % (Auto) 1.000 H Neut % (Auto) 88.5 H Lymph % (Auto) 4.7 L [place] % (Auto) 5.1 Eos % (Auto) 0.1 Baso % (Auto) 0.6 Absolute Neuts (auto) 22.8 H Absolute Lymphs (auto) 1.20 Nucleated RBC % 0 Differential Comment SEE COMMENT Platelet Estimate SLT INC Plt Morphology Comment LARGE RBC Morphology N CHROM Anisocytosis RARE Microcytosis RARE Sodium 134 L Potassium 4.4 Chloride 100 Carbon Dioxide 24.0 Anion Gap 10 BUN 14 Creatinine 0.86 Estim Creat Clear Calc 135.36 Est GFR (MDRD) Af Amer 119 Est GFR (MDRD) Non-Af 98 BUN/Creatinine Ratio 16.4 Glucose 127 H Lactic Acid 3.7 H* Calcium 9.0 Total Bilirubin 0.80 AST 47 H ALT 45 Alkaline Phosphatase 235 H Total Protein 7.1 Albumin 2.3 L Globulin 4.8 H Albumin/Globulin Ratio 0.5 L Lipase 21 Discharge Plan Triage Chief Complaint: Abd Pain ED Provider: Sheila Bowen Dx/Rx/DC Orders Clinical Impression: Abdominal pain, Mass of cecum, Hypertension, Sarcoma, Metastasis to liver Prescriptions: No Action oxycodone-acetaminophen 5-325 mg tablet See Rx Instructions PO Q4-6H PRN (Reason: Pain) 7 Days Qty: 84 0RF Rx Instructions: 1-2 tablets orally every 4-6 hours PRN; hydrochlorothiazide 25 mg tablet 25 mg PO DAILY lisinopril 40 mg tablet 40 mg PO DAILY sennosides-docusate sodium [Senokot-S] 8.6-50 mg tablet 2 tab-cap PO QHS Primary Care Provider: Pascual Allen Referrals: Pascual Allen MD [Primary Care Provider] - Print Language: Turkmen
[2024-01-06] MEDS: Ondansetron 4 MG/2 ML Vial IV (21:18)
[2024-01-06] MEDS: HYDROmorphone 1 MG/ML Syringe IV (21:18)
[2024-01-06] MEDS: 0.9% Normal Saline (1000mL) 1,000 ML 125 ML IV (21:18)
[2024-01-06 21:28] LABS: Absolute Neutrophil Count 22.8 X10^3/uL (2.0-7.7); Basophil# 0.15 X10^3/uL; Basophil% 0.6 % (0-1); Eosinophil# 0.03 X10^3/uL; Eosinophils% 0.1 % (0-5); Hematocrit 36.2 % (40-54); Hemoglobin 11.1 g/dL (13.0-16.5); Lymphocyte % 4.7 % (19-41); Mean Corp Hgb Conc 30.7 g/dL (32-36); Mean Corpuscular Hgb 23.5 pg (27.0-32.0); Mean Corpuscular Volume 76.7 fL (80-94); Mean Platelet Vol. 8.8 fl (6.2-12.0); Monocyte# 1.31 X10^3/uL; Monocyte% 5.1 % (0-10); NRBC Flagged by Analyzer 0 % (0-5); Neutrophil # 22.76 X10^3/uL (2.7-7.7); Neutrophil % 88.5 % (47-70); POSITIVE DIFFERENTIAL YES; Platelet Count 435 K/mm3 (150-450); RBC Distribution Width CV 18.5 % (11.6-14.6); RBC Distribution Width SD 49.9 fl (35.1-43.9); Red Blood Count 4.72 M/mm3 (4.6-6.2); White Blood Count 25.7 K/mm3 (4.4-11.0)
[2024-01-06 21:36] LABS: Differential Indicated SCAN CRITERIA MET
[2024-01-06 21:50] LABS: ALB/GLOB Ratio 0.5 RATIO (0.9-2.4); AST(SGOT) 47 U/L (15-37); Alanine Aminotransfer ALT/SGPT 45 U/L (16-61); Albumin, Serum 2.3 g/dL (3.2-5.0); Alkaline Phosphatase 235 U/L (45-117); Anion Gap 10 (5-15); BUN 14 mg/dL (7-18); BUN/Creat Ratio 16.4 RATIO (10-20); Chloride 100 mmol/L (98-107); Creatinine, Serum 0.86 mg/dL (0.70-1.30); EST Glomerular Filtration Rate 98 mL/min (>60); Est Glom Filt Rate - Afr Amer 119 mL/min (>60); Estimated Creatinine Clearance 135.36 ml/min; Globulin 4.8 g/dL (2.2-4.2); Glucose 127 mg/dL (74-106); Lipase 21 U/L (13-75); Potassium 4.4 mmol/L (3.5-5.1); Protein, Total 7.1 g/dL (6.4-8.2); Sodium Level 134 mmol/L (136-145)
[2024-01-06 21:51] VITALS: BP 143/82; PULSE 125; RESP 25; TEMP 37.2; O2SAT 91
[2024-01-06 21:54] LABS: Lactic Acid 3.7 mmol/L (0.4-1.9)
[2024-01-06 22:04] LABS: Platelet Estimate SLT INC (ADEQ)
[2024-01-06 22:05] LABS: Anisocytosis RARE; Microcytosis RARE; Platelet Morphology LARGE; Red Cell Morphology N CHROM NORMAL (NORM C&C)
[2024-01-06 22:25] VITALS: BP 125/74; PULSE 126; RESP 22; O2SAT 91
[2024-01-06 22:37] LABS: Bacteria 0 SEEN /hpf (None Seen); Mucous, Urine 0 SEEN /hpf (<or=2+); Red Blood Cells-Urine 0 SEEN /hpf (0-5)
[2024-01-06 22:52] LABS: Color, Urine Yellow (Yellow); Glucose, Dipstick Normal (Normal); Ketone-Dipstick 5 mg/dl (Negative); Leukocyte Esterase-Dipstick 25 /ul (Negative); Nitrite-Dipstick Negative (Negative); Occult Blood-Urine Negative /ul (Negative); Protein-Dipstick 30 mg/dl (Negative); Urine Clarity Clear (Clear); Urine Urobilinogen 1 mg/dl (Normal)
[2024-01-06 22:53] LABS: Urine Bilirubin Dipstick 1 mg/dL (Negative)
[2024-01-06 22:59] LABS: Squamous Epithelial Cells - UA 0-5 SEEN /hpf (0-5); White Blood Cells 0-5 SEEN /hpf (0-5)
[2024-01-06 23:00] LABS: Amorphous Sediment 2+ URATE
[2024-01-06 23:13] VITALS: BP 145/76; PULSE 121; RESP 25; TEMP 37.2; O2SAT 92
--- NOTE | 2024-01-06 23:13 | PCM.HP.STD ---
HPI - General General Date of Admission: 01/06/24 Date of Service: 01/06/24 Chief Complaint: Intractable abdominal pain progressively worsening for about 3 months but got worse today HPI Narrative NADEEN DONAHUE, is a 58 M with recent hospital admission was diagnosed metastatic cancer, cecal mass with liver sarcoma came to ED for intractable abdominal pain. Patient states that he has diffuse abdominal pain for 3 months started from right upper quadrant, anorexia and weight loss about 50 pounds. He passed flatus in the morning today but no BM for 3 days. Denies nausea vomiting or GI bleed. No hematemesis melena or hematochezia. He recently saw oncologist Dr. Arellano on 01/05/2024 and referred to [facility] for further treatment of sarcoma and GI surgery. He was given Percocet for pain control. His is in process of preparation of advanced directive In ED, CT abdomen was done which does not show bowel obstruction or ileus. Vital reviewed patient has tachycardia, tachypnea and mild hypertension. Patient states he has not eaten for 3 days. Patient is being admitted for pain control. [facility] Medical History Sleep apnea Hypertension Mass of cecum Metastasis to liver Leukocytosis Intractable abdominal pain Encounter for examination required by Department of Transportation (DOT) Home Medications ?Medication ?Instructions ?Recorded ?Last Taken ?Type hydrochlorothiazide 25 mg tablet 25 mg PO DAILY 12/25/23 Unknown History lisinopril 40 mg tablet 40 mg PO DAILY 12/25/23 Unknown History oxycodone-acetaminophen 5 mg-325 See Rx Instructions PO Q4-6H PRN 01/05/24 Unknown Rx mg tablet Pain 7 days #84 TABLETS sennosides 8.6 mg-docusate sodium 2 tab-cap PO QHS constipation 01/06/24 Unknown History 50 mg tablet (Senokot-S) Allergy/AdvReac Type Severity Reaction Status Date / Time No Known Allergies Allergy Verified 01/06/24 20:51 Family History Mother Cancer Sister Liver failure Social History Smoking Status: Former smoker Tobacco: How many years used: 20 alcohol intake: never ROS ROS Narrative Constitutional: Reports fatigue and weakness. No fever. Loss of appetite. Loss of weight. HEENT: Reports systems reviewed and no addt'l complaints, except as documented Respiratory/Chest: No acute shortness of breath or respiratory distress or wheezing. CVS: No chest pain pressure or tightness Gastrointestinal: As described in HPI Genitourinary: Denies burning urination or new urinary tract symptoms Musculoskeletal: Increasing leg swelling bilateral, chronic. Denies acute joint pain or limited range of motion. No acute injury Neurologic: Denies seizure-like symptoms. skin: No ulcer. No rash Endocrinology: Reports systems reviewed and no addt'l complaints, except as documented Hematologic/Lymphatic: Recent cancer diagnosis as described in HPI. Reports systems reviewed and no addt'l complaints, except as documented Rest 14 ROS are negative except as mentioned in HPI Vital Signs Vital Signs Vital Signs: 01/06/24 20:44 01/06/24 20:51 01/06/24 21:51 Temperature 98.3 F 98.3 F 98.9 F Temperature Source Oral Oral Temporal Pulse Rate 130 H 127 H 125 H Respiratory Rate 24 H 27 H 25 H Blood Pressure 131/86 H 131/86 H 143/82 H Blood Pressure Mean 101 101 102 Pulse Ox 93 93 91 Oxygen Delivery Method Room Air Room Air Room Air 01/06/24 22:25 Temperature Temperature Source Pulse Rate 126 H Respiratory Rate 22 H Blood Pressure 125/74 H Blood Pressure Mean 91 Pulse Ox 91 Oxygen Delivery Method Room Air Weight Weight: 322 lb 12.108 oz Body Mass Index (BMI) 47.6 Physical Exam Narrative General: Alert, Oriented x3, Cooperative. Looks dehydrated HEENT: Atraumatic, PERRLA, EOMI, Normocephalic Oral: Oral mucosa dry. No Gingival or Mucosal Lesions/ Ulcerations Neck: Supple, No JVD, Negative Carotid Bruits Chest wall/Lungs: Air entry diminished in bilateral lung bases. No crepitation/rhonchi Cardiovascular: Regular rate, Regular Rhythm, Normal S1, Normal S2, No M/G/R Abdomen: Very tender abdomen, diffuse. Does not permit for even palpation. Bowel sounds sluggish. Does not look distended : Dark, yellow concentrated urine. No dysuria. No renal angle tenderness. No suprapubic tenderness. Extremities: 1-2+ pedal edema, Capillary Refill Less than 3 Seconds Skin: No rashes, No breakdown Musculoskeletal: No Tenderness to Palpation of Joints or Extremities Neurological: Cranial nerves II-XII grossly intact, DTR 2+/4. No acute focal neurological deficit. Psych/Mental Status: Flat affect Results Lab / Micro Data 01/06/24 21:15 01/06/24 21:15 Labs: Laboratory Results - last 24 hr 01/06/24 21:15: WBC 25.7 H, RBC 4.72, Hgb 11.1 L, Hct 36.2 L, MCV 76.7 L, MCH 23.5 L, MCHC 30.7 L, RDW Std Deviation 49.9 H, RDW Coeff of Tiffany 18.5 H, Plt Count 435, MPV 8.8, Immature Gran % (Auto) 1.000 H, Neut % (Auto) 88.5 H, Lymph % (Auto) 4.7 L, Maries % (Auto) 5.1, Eos % (Auto) 0.1, Baso % (Auto) 0.6, Absolute Neuts (auto) 22.8 H, Absolute Lymphs (auto) 1.20, Nucleated RBC % 0, Differential Comment SEE COMMENT, Platelet Estimate SLT INC, Plt Morphology Comment LARGE, RBC Morphology N CHROM, Anisocytosis RARE, Microcytosis RARE, Sodium 134 L, Potassium 4.4, Chloride 100, Carbon Dioxide 24.0, Anion Gap 10, BUN 14, Creatinine 0.86, Estim Creat Clear Calc 135.36, Est GFR (MDRD) Af Amer 119, Est GFR (MDRD) Non-Af 98, BUN/Creatinine Ratio 16.4, Glucose 127 H, Lactic Acid 3.7 H*, Calcium 9.0, Total Bilirubin 0.80, AST 47 H, ALT 45, Alkaline Phosphatase 235 H, Total Protein 7.1, Albumin 2.3 L, Globulin 4.8 H, Albumin/Globulin Ratio 0.5 L, Lipase 21 01/06/24 22:30: Urine Color Yellow, Urine Clarity Clear, Urine pH 5.0, Ur Specific Browning 1.020, Urine Protein 30 H, Urine Glucose (UA) Normal, Urine Ketones 5 H, Urine Occult Blood Negative, Urine Nitrite Negative, Urine Bilirubin 1 H, Urine Urobilinogen 1 H, Ur Leukocyte Esterase 25 H, Urine RBC 0 SEEN, Urine WBC 0-5 SEEN, Ur Squamous Epith Cells 0-5 SEEN, Amorphous Sediment 2+ URATE, Urine Bacteria 0 SEEN, Urine Mucus 0 SEEN Imaging Radiology Impression Abdomen/Pelvis CT 01/06/24 21:05 IMPRESSION: 1. No change in the extensive bulky masses in the right lobe of the liver. 2. No change in the bulky mass involving the cecum and ascending colon. 3. Slight ascites. 4. Enlarged paradiaphragmatic lymph node anterior to the right lobe of the liver and enlarged periportal lymph nodes. 5. Atelectasis in the right lung base. 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 1. Intractable diffuse abdominal pain most likely due to liver cancer: Patient has abdominal pain for 3 months but got worse today. [facility]. Patient is sinus tachycardia, tachypnea, lactic acidosis probably from dehydration. Patient on IV fluid normal saline changed to Ringer lactate 150 mL/h for 2 hours and then reevaluate. Monitor intake and output. Pain control with opioids. Bowel regimen including scheduled MiraLAX, senna S and Dulcolax as needed. 2. Mild hyponatremia: Serum potassium, bicarbonate and aniongap in normal range. BUN/creatinine normal. Serum calcium 9.0 3. 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 CT abdomen and pelvis on December 25, 2023, individually reviewed which shows hepatomegaly, elevation of right hemidiaphragm and multiple masses in the liver. Large mass in the region of cecum. Colonoscopy in November 2023 during last admission reported entire examined colon normal though preparation of colon was fair. Mucosal changes noted in the ileum secondary to ileitis . CT-guided liver biopsy reported metastatic poorly differentiated malignant neoplasm of epithelioid and spindle cell features favor high-grade sarcoma. The patient's oncologist Dr. Arellano on 01/05/2024 and the impression was as mentioned above. Mass in the cecum not seen colonoscopy probably it is not an episode alert oriented tumor. Plan: Patient was referred to [facility] in GI surgery. I reiterated the need for early seen in [facility]. I talked to the patient's and set the needs tertiary care for further management of cancer and we are admitting for pain control, nutritional management along with other conservative therapies. Patient has leukocytosis 25.7 thousand. Mild hypochromic microcytic anemia. 4. Hypertension: Blood pressure is slightly elevated, 145/76. Probably due to abdominal pain and in distress. Patient was recently admitted between 12/25/2023 to 12/27/2023. During this admission he was diagnosed with cancer as mentioned above. 5. Morbid obesity: Even the patient lost a lot of weight and BMI is still 47.7 kg/m?. Salon/Spa Manager consult. Living will/advanced directive/end of life care: Patient does not have living will or advanced directive but is in preparation of living will. After discussion of benefits/risks procedures involved with full code, DNR CC arrest and DNR CC, the patient and his do not want life resuscitation Patient doesn't want artificial life support including intubation, tube feed, ventilator and/chest compression, central venous catheter, vasopressor and DC shock if needed Total time spent in lagi-mo-naxw encounter in discussion of advanced directive 17 minutes. Laboratory Results 01/06/24 21:15: WBC 25.7 H, RBC 4.72, Hgb 11.1 L, Hct 36.2 L, MCV 76.7 L, MCH 23.5 L, MCHC 30.7 L, RDW Std Deviation 49.9 H, RDW Coeff of Tiffany 18.5 H, Plt Count 435, MPV 8.8, Immature Gran % (Auto) 1.000 H, Neut % (Auto) 88.5 H, Lymph % (Auto) 4.7 L, Maries % (Auto) 5.1, Eos % (Auto) 0.1, Baso % (Auto) 0.6, Absolute Neuts (auto) 22.8 H, Absolute Lymphs (auto) 1.20, Nucleated RBC % 0, Differential Comment SEE COMMENT, Platelet Estimate SLT INC, Plt Morphology Comment LARGE, RBC Morphology N CHROM, Anisocytosis RARE, Microcytosis RARE, Sodium 134 L, Potassium 4.4, Chloride 100, Carbon Dioxide 24.0, Anion Gap 10, BUN 14, Creatinine 0.86, Estim Creat Clear Calc 135.36, Est GFR (MDRD) Af Amer 119, Est GFR (MDRD) Non-Af 98, BUN/Creatinine Ratio 16.4, Glucose 127 H, Lactic Acid 3.7 H*, Calcium 9.0, Total Bilirubin 0.80, AST 47 H, ALT 45, Alkaline Phosphatase 235 H, Total Protein 7.1, Albumin 2.3 L, Globulin 4.8 H, Albumin/Globulin Ratio 0.5 L, Lipase 21 01/06/24 22:30: Urine Color Yellow, Urine Clarity Clear, Urine pH 5.0, Ur Specific Browning 1.020, Urine Protein 30 H, Urine Glucose (UA) Normal, Urine Ketones 5 H, Urine Occult Blood Negative, Urine Nitrite Negative, Urine Bilirubin 1 H, Urine Urobilinogen 1 H, Ur Leukocyte Esterase 25 H, Urine RBC 0 SEEN, Urine WBC 0-5 SEEN, Ur Squamous Epith Cells 0-5 SEEN, Amorphous Sediment 2+ URATE, Urine Bacteria 0 SEEN, Urine Mucus 0 SEEN Clinical Impression(s) from Imaging Studies Abdomen/Pelvis CT 01/06/24 21:05 IMPRESSION: 1. No change in the extensive bulky masses in the right lobe of the liver. 2. No change in the bulky mass involving the cecum and ascending colon. 3. Slight ascites. 4. Enlarged paradiaphragmatic lymph node anterior to the right lobe of the liver and enlarged periportal lymph nodes. 5. Atelectasis in the right lung base. Electronically Signed: Nadeen Beth MD at 22:39 EDT , Charges/Coding Visit Charges Inpatient E&M: 32278 Init Hosp L3 Procedures Hospitalists Procedures: 75804 Advncd Care Plan 30 Min
[2024-01-07] VITALS (26 sets, daily range): BP systolic 97–167; BP diastolic 63–87; PULSE 108–135; RESP 15–24; TEMP 36.6–37.1; O2SAT 89–95; BMI 46.8; BMI 48.2
--- NOTE | 2024-01-07 | FLU_PTH ---
PATIENT: NADEEN DONAHUE LOC: MS3 U#:[id number] AGE/SX: 58/M ROOM: WI319 RE01/06/[address]: Dr. Aubrey Dixon MD : 1965 BED: 1 DIS: 01/11/2024 SPEC #: [id number] RECD: 01/07/24 14:20 STATUS: VENICE ECHEVERRIA #: [id number] TONEY: 01/07/24 00:[address]: Aubrey Dixon DEPT: CYTOLOGY RECD BY: Neema Ragdsale ENTERED: 01/08/24 09:24 SP TYPE: Fluid OTHR DR: MD Dr. Abdirahman Kowalski MD Dr. Victor Velasquez, MD Tissues: Abdomen, NOS Procedures: Special Stain Group II Surgery Specimen Level IV Cytospin Fluid HEADER OPERATION: Right abdominal mass/ drainage PRE-OP DIAGNOSIS: Right abdominal mass /drainage TISSUE SUBMITTED: Right abdominal mass/ drainage DIAGNOSIS CYTOLOGY Right abdominal mass fluid drainage (cytospins and cellblock): Atypical spindle cells consistent with previous diagnosis of sarcoma. See comment. 01/13/2024 COMMENT Immunohistochemistry ([id number]) supports the above diagnosis. Reference has been made to patient's liver mass CT guided core biopsy ([id number]) in which atypical epithelial with spindle cells favor high grade sarcoma was identified. Case has been reviewed in consultation with Dr. Daniels who concurs with the above diagnosis. IDC:SJ CYTOLOGY STUDY Slides are reviewed. CYTOLOGY GROSS Received is 45 ml of yellow-cloudy fluid labeled with the patient's name and and designated per the requisition as Right abdominal mass/drainage. Submitted for cytology preparation including cell block. 01/08/2024 TC:0 CPT: 46107,94116
--- NOTE | 2024-01-07 | IMM_PTH ---
PATIENT: NADEEN DONAHUE LOC: MS3 U#:[id number] AGE/SX: 58/M ROOM: MA319 RE01/06/[address]: Dr. Aubrey Dixon MD : 1965 BED: 1 DIS: 01/11/2024 SPEC #: [id number] RECD: 01/12/24 10:26 STATUS: VENICE REQ #: [id number] TONEY: 01/07/24 00:[address]: Aubrey Dixon DEPT: IMMUNOHISTOCHEMISTRY RECD BY: Alex Ceron ENTERED: 01/12/24 10:27 SP TYPE: IMMUNO OTHR DR: MD Dr. Abdirahman Kowalski MD Dr. Victor Velasquez, MD Tissues: Abdomen, NOS Procedures: SMA (add) Tyson Ret (add) CD34 (add) CK20 (add) CK5-6 (add) CK7 (add) CK8 (add) DESMIN (add) KI-67 (add) P53 (add) Vimentin (add) Pankeratin (initial) P40 (add) CD68 (ADD) PHYSICIAN & INSTITUTION [place] [id number] SPECIMEN INFORMATION: Tissue Source: Right abdominal mass/drainage Clinical Info: Right abdominal mass/drainage Specimen Number: [id number] CPT code: 40121,[id number] METHODOLOGY: Deparaffinized sections of prefer/formalin-fixed tissue or PAP/DQ stained slides are incubated with monoclonal/polyclonal antibodies/oligonucleotide probes. Localization is made via biotin free immunoperoxidase method. Appropriate controls are performed and reacted as expected. Results on target cell population are indicated in the following table: RESULTS: ANTIBODY / CLONE RESULT Cellblock #2 AE1-3 (AE1/AE3/PCK26) negative CK7 (OV-TL12/30) negative CK8 (94uskkE28) negative CK20 (KS20.8) negative Vimentin (V9) positive CD34 (QBEnd-10) negative CD68 (KP-1) positive, macrophages Actin (1A4) positive Desmin (CE-R-11) negative CALRET (polyclonal) negative CK5-6 (D5 & 1684) negative P40 (BC28) negative P53 (DO-7) negative, null pattern Ki-67 (30-9) positive, rare cells These tests were developed and their performance characteristics determined by [facility]. They may not have been cleared or approved by the U.S. Food and Drug Administration. The FDA has determined that such clearance or approval is not necessary. The above immunohistochemical/dualISH markers are ordered and reviewed by the Pathologist. INTERPRETATION: Right abdominal mass/drainage: Atypical spindle cell population consistent with previous diagnosis of sarcoma. See comment. COMMENT: Clinical correlation is necessary. Case has been reviewed in consultation with Dr. Daniels who concurs with the above diagnosis. IDC:ZENIA Garrett 01/13/2024
[2024-01-07] MEDS: Morphine 2 MG/ML Syringe IV ×2 (01:08→05:32)
[2024-01-07 01:24] LABS: Reflex Lactate? Y
[2024-01-07 02:27] LABS: Lactic Acid 4.1 mmol/L (0.4-1.9)
--- NOTE | 2024-01-07 02:30 | RAD_ITS ---
INDICATION: sob EXAMINATION/TECHNIQUE: X-RAY - XR Chest 1 View COMPARISON: No relevant prior comparison study available FINDINGS: LINES/DEVICES: None. LUNGS: Large right pleural effusion with compressive atelectasis in the right lung base. MEDIASTINUM AND CARDIOVASCULAR STRUCTURES: Cardiac silhouette not enlarged. Central airways and mediastinal contour are unremarkable. BONES AND SOFT TISSUES: Unremarkable. RAD/Chest 1 View (Portable) IMPRESSION: Large right pleural effusion with compressive atelectasis in the right lung base. Electronically Signed: Merced Talley MD at 3:56 EDT ,
--- NOTE | 2024-01-07 02:33 | PCM.HOSP.N ---
Hospitalist Note Patient lactic acid elevated. It was 3.7. We went up to 4.1. Patient is admitted with intractable abdominal pain. No fever. He has leukocytosis 25.7 thousand, immature granulocyte 1% neutrophils 88%. Vitals shows tachycardia, blood pressure went down to 97/69, tachypnea respiratory rate 20. CT abdomen does not show any focus of infection basically unchanged from the previous CT abdomen. Chest x-ray portable, blood cultures x 2, UA, urine culture and triple PCR screen for flu RSV and COVID ordered Patient does not had fever. But with history of cancer, he might be immunosuppressed candidate, therefore I have suspicion that sepsis should be ruled out Therefore, comprehensive labs for sepsis ordered and empirically started on IV Zosyn.
--- NOTE | 2024-01-07 02:41 | SEPSISATNOTE ---
Sepsis Attestation Sepsis Alert: Yes Sepsis Attestation: Sepsis Ruled Out (No particular focus of infection. Patient has abdominal pain with diagnosis of cancer. SIRS criteria positive.) Date exam was performed: 01/07/24 Time exam was performed: 01:30 Possible Source of Sepsis: GI tract/intra-abdominal and Unknown Sepsis Organ Dysfunction Criteria Present: SBP decrease of more than 40 mmHg and Lactic Acid > 2 mmol/L Fluid Resuscitation Fluid resuscitation indicated?: Yes Fluid Resuscitation ordered: Lesser volume fluid bolus ordered Amount of fluid ordered: 3,000 Reason for lesser fluid bolus:: Concern for fluid overload and Other (Mild ascites) Sepsis Note Date exam was performed: 01/07/24 Time exam was performed: 04:30 Sepsis Attestation: Sepsis re-evaluation was performed (Blood pressure improved after second bolus 116/75. Heart rate also improved 116/min. Third bolus running.) Response to fluids: Fluid responsive hypotension
[2024-01-07] MEDS: Piperacil/Tazobactam 3.375 GM in 0.9% Normal Saline (50mL MB+) 50 ML IV ×3 (03:16→21:41)
[2024-01-07] MEDS: 0.9% Normal Saline (1000mL) 1,000 ML 999 ML IV ×3 (03:18→05:45)
[2024-01-07] MEDS: Senna/Docusate Sodium 1 Tablet 2 TABLET PO ×3 (03:21→20:17)
[2024-01-07 03:28] LABS: Absolute Lymphocyte Count 1.53 X10^3/uL (0.83-4.51); Absolute Neutrophil Count 26.9 X10^3/uL (2.0-7.7); Basophil# 0.12 X10^3/uL; Basophil% 0.4 % (0-1); Eosinophil# 0.01 X10^3/uL; Hematocrit 34.7 % (40-54); Hemoglobin 10.5 g/dL (13.0-16.5); Lymphocyte # 1.53 X10^3/ul (0.83-4.51); Mean Corp Hgb Conc 30.3 g/dL (32-36); Mean Corpuscular Hgb 23.6 pg (27.0-32.0); Mean Platelet Vol. 8.7 fl (6.2-12.0); Monocyte# 1.79 X10^3/uL; Monocyte% 5.8 % (0-10); NRBC Flagged by Analyzer 0 % (0-5); Neutrophil # 26.85 X10^3/uL (2.7-7.7); POSITIVE COUNT YES; POSITIVE DIFFERENTIAL YES; Platelet Count 434 K/mm3 (150-450); RBC Distribution Width CV 18.6 % (11.6-14.6); Red Blood Count 4.45 M/mm3 (4.6-6.2); White Blood Count 30.9 K/mm3 (4.4-11.0)
[2024-01-07 03:35] LABS: International Normalized Ratio 1.3; Prothrombin Time (Protime)PT. 15.9 SECONDS (11.7-14.9)
[2024-01-07 03:36] LABS: Partial Thromboplast Time 34.9 Seconds (24.1-36.2)
[2024-01-07 03:44] LABS: Differential Indicated SCAN CRITERIA MET
[2024-01-07 03:45] LABS: CPK Total, Creatine Kinase 55 U/L (39-308)
[2024-01-07 03:51] LABS: ALB/GLOB Ratio 0.5 RATIO (0.9-2.4); AST(SGOT) 46 U/L (15-37); Alanine Aminotransfer ALT/SGPT 39 U/L (16-61); Albumin, Serum 2.1 g/dL (3.2-5.0); Alkaline Phosphatase 216 U/L (45-117); Anion Gap 10 (5-15); BUN 16 mg/dL (7-18); BUN/Creat Ratio 14.4 RATIO (10-20); Calcium,Total 8.1 mg/dL (8.5-10.1); Chloride 99 mmol/L (98-107); Creatinine, Serum 1.11 mg/dL (0.70-1.30); EST Glomerular Filtration Rate 73 mL/min (>60); Est Glom Filt Rate - Afr Amer 88 mL/min (>60); Estimated Creatinine Clearance 103.87 ml/min; Globulin 4.5 g/dL (2.2-4.2); Glucose 125 mg/dL (74-106); Potassium 4.5 mmol/L (3.5-5.1); Protein, Total 6.6 g/dL (6.4-8.2); Sodium Level 130 mmol/L (136-145)
[2024-01-07 04:08] LABS: Differential Comment SCANNED
[2024-01-07] MEDS: Enoxaparin 40 MG/0.4 ML Syringe SC (05:32)
[2024-01-07] MEDS: Lactated Ringers 1,000 ML 150 ML IV (07:06)
[2024-01-07 07:38] LABS: Lactic Acid 2.8 mmol/L (0.4-1.9)
[2024-01-07] MEDS: HYDROmorphone 1 MG/ML Syringe IV ×4 (08:27→23:22)
[2024-01-07] MEDS: Lactated Ringers 1,000 ML 100 ML IV (08:29)
[2024-01-07] MEDS: Polyethylene Glycol 3350 17 GM PACKET PO ×2 (09:47→20:17)
--- NOTE | 2024-01-07 10:30 | CASEMGMT ---
Addendum entered by Saida Isaacs 01/07/24 11:17: MAGNO met with pt and family to complete HCPOA and Living Will. Pt named ROLANDO Ruiz, as primary agent and derrek Harris, as primary agents. Copies were given for agents, original to pt, and a copy placed on pt chart. NIKIA Gu Original Note: Social Work- MAGNO met with family who had questions about a living will and HCPOA. SW provided education and offered to help complete. Pt was recently given pain meds, so MAGNO will follow up with family in a few hours. NIKIA Gu
--- NOTE | 2024-01-07 10:50 | CASEMGMT ---
Readmission review completed and documented in the intervention CM: Readmission Intervention. RN CM into pt room, pt sig other and other visitor present. Witnessed pt signature with SW. Pt lying in bed with oxygen on and reports pain. Pt nurse aware and getting pt pain medication. Pt reports he is typically indep at home. Since last hospital stay, pt did follow up with PCP. Pt was sent into ER by PCP from appt on 12/30 d/t pain. Pt pain med was changed and pt dc'd as he had a GI follow up appt the following day. Pt states that appt was cancelled as his liver bx results were still pending. Pt did follow up with who dx pt with stage IV metastatic colon cancer to liver. Pt states he was referred to [facility] for treatment of this but has not yet started. Pt readmitted d/t abd pain. Pt does not wear oxygen at home. Pt and family aware RN CICI will follow pt through this hospitalization and be available for any dc needs he may have. Pt goal is to dc home to follow up at [facility]. At end of assessment, pt nurse in to medicate pt. Pt denies further needs at this time.
[2024-01-07 11:04] LABS: Reflex Lactate? Y
[2024-01-07 12:08] LABS: Lactic Acid 2.6 mmol/L (0.4-1.9)
[2024-01-07 12:43] LABS: Bedside Glucose 112 mg/dL (74-106)
--- NOTE | 2024-01-07 12:51 | PN.HOSP_ITS ---
Subjective Subjective Having significant abdominal pain, renal function is stable but he has low urine output despite IV fluids Objective Data Objective Data Vital Signs: Vital Signs Temp Pulse Resp BP Pulse Ox O2 Del Method O2 Flow Rate 98.0 F 113 H 20 H 130/82 H 95 Nasal Cannula 2 01/07/24 12:35 01/07/24 12:35 01/07/24 12:35 01/07/24 12:35 01/07/24 12:35 01/07/24 12:35 01/07/24 12:35 Oxygen Flow Rate (L/min) 2 Oxygen Delivery Method Nasal Cannula Weight: 325 lb 13.491 oz Body Mass Index (BMI) 48.2 Intake & Output: Intake and Output for Last 24 Hours 01/06/24 01/07/24 01/08/24 03:59 03:59 03:59 Intake Total 1000 / 1000 4057.5 / 4057.5 Output Total 200 / 200 Balance 1000 / 1000 3857.5 / 3857.5 Lab / Micro Data 01/07/24 03:03 01/07/24 03:03 Labs: Laboratory Results - last 24 hr 01/06/24 21:15: WBC 25.7 H, RBC 4.72, Hgb 11.1 L, Hct 36.2 L, MCV 76.7 L, MCH 23.5 L, MCHC 30.7 L, RDW Std Deviation 49.9 H, RDW Coeff of Tiffany 18.5 H, Plt Count 435, MPV 8.8, Immature Gran % (Auto) 1.000 H, Neut % (Auto) 88.5 H, Lymph % (Auto) 4.7 L, [place] % (Auto) 5.1, Eos % (Auto) 0.1, Baso % (Auto) 0.6, Absolute Neuts (auto) 22.8 H, Absolute Lymphs (auto) 1.20, Nucleated RBC % 0, Differential Comment SEE COMMENT, Platelet Estimate SLT INC, Plt Morphology Comment LARGE, RBC Morphology N CHROM, Anisocytosis RARE, Microcytosis RARE, S odium 134 L, Potassium 4.4, Chloride 100, Carbon Dioxide 24.0, Anion Gap 10, BUN 14, Creatinine 0.86, Estim Creat Clear Calc 135.36, Est GFR (MDRD) Af Amer 119, Est GFR (MDRD) Non-Af 98, BUN/Creatinine Ratio 16.4, Glucose 127 H, Lactic Acid 3.7 H*, Calcium 9.0, Total Bilirubin 0.80, AST 47 H, ALT 45, Alkaline Phosphatase 235 H, Total Protein 7.1, Albumin 2.3 L, Globulin 4.8 H, A lbumin/Globulin Ratio 0.5 L, Lipase 21 01/06/24 22:30: Urine Color Yellow, Urine Clarity Clear, Urine pH 5.0, Ur Specific [place] 1.020, Urine Protein 30 H, Urine Glucose (UA) Normal, Urine Ketones 5 H, Urine Occult Blood Negative, Urine Nitrite Negative, Urine Bilirubin 1 H, Urine Urobilinogen 1 H, Ur Leukocyte Esterase 25 H, Urine RBC 0 SEEN, Urine WBC 0-5 SEEN, Ur Squamous Epith Cells 0-5 SEEN, Amorphous Sediment 2+ URATE, Urine Bacteria 0 SEEN, Urine Mucus 0 SEEN 01/07/24 01:41: Lactic Acid 4.1 H* 01/07/24 03:03: WBC 30.9 H*, RBC 4.45 L, Hgb 10.5 L, Hct 34.7 L, MCV 78.0 L, MCH 23.6 L, MCHC 30.3 L, RDW Std Deviation 51.0 H, RDW Coeff of Tiffany 18.6 H, Plt Count 434, MPV 8.7, Immature Gran % (Auto) 1.800 H, Neut % (Auto) 87.0 H, Lymph % (Auto) 5.0 L, [place] % (Auto) 5.8, Eos % (Auto) 0.0, Baso % (Auto) 0.4, Absolute Neuts (auto) 26.9 H, Absolute Lymphs (auto) 1.53, Nucleated RBC % 0, Differential Comment SCANNED, Diff Path Review July, PT 15.9 H, INR 1.3, APTT 34.9, Sodium 130 L, Potassium 4.5, Chloride 99, Carbon Dioxide 21.0, Anion Gap 10, BUN 16, Creatinine 1.11, Estim Creat Clear Calc 103.87, Est GFR (MDRD) Af Amer 88, Est GFR (MDRD) Non-Af 73, BUN/Creatinine Ratio 14.4, Glucose 125 H, Calcium 8.1 L, Total Bilirubin 0.60, AST 46 H, ALT 39, Alkaline Phosphatase 216 H, Total Creatine Kinase 55, Total Protein 6.6, Albumin 2.1 L, Globulin 4.5 H, A lbumin/Globulin Ratio 0.5 L 01/07/24 07:00: Lactic Acid 2.8 H* 01/07/24 11:12: Lactic Acid 2.6 H* 01/07/24 12:24: POC Glucose 112 H Micro: Microbiology 01/07/24 02:50 Mucosa - Nose SARS-CoV-2, Influenza & RSV (PCR) - Final Radiography Diagnostic Testing: Radiology Impression Abdomen/Pelvis CT 01/06/24 21:05 IMPRESSION: 1. No change in the extensive bulky masses in the right lobe of the liver. 2. No change in the bulky mass involving the cecum and ascending colon. 3. Slight ascites. 4. Enlarged paradiaphragmatic lymph node anterior to the right lobe of the liver and enlarged periportal lymph nodes. 5. Atelectasis in the right lung base. Electronically Signed: Kole Beth MD at 22:39 EDT , Chest X-Ray 01/07/24 02:30 IMPRESSION: Large right pleural effusion with compressive atelectasis in the right lung base. Electronically Signed: Merced Talley MD at 3:56 EDT , Physical Exam Narrative General: Alert, Oriented x3, Cooperative, No apparent distress HEENT: Atraumatic, PERRLA, EOMI, Normocephalic Oral: Moist Mucosa Neck: Supple, No JVD Lungs: Diminished, Normal air movement, No rhonchi, No wheeze, No rales Cardiovascular: Tachycardic, Regular Rhythm, Normal S1, Normal S2, No murmurs Abdomen: Soft, tender, distended, liver is enlarged Extremities: Edema, Capillary Refill Less than 3 Seconds Skin: No rashes, No breakdown Musculoskeletal: No Tenderness to Palpation of Joints or Extremities Neurological: No focal neurological deficits, Motor Exam 5/5 strength throughout, Sensory exam intact to light touch and pain Psych/Mental Status: Normal Affect, Appropriate Assessment & Plan Assessment/Plan (1) Sarcoma: (2) Abdominal pain: PLAN: Plan 1. Intractable abdominal pain secondary to aggressive sarcoma of the liver ? There is a possibility of an abscess in his right lower quadrant given his white count over the last couple weeks will consult radiology for possible drainage tube ? Continue with IV fluids though given the shortage will slow the rate ? Knowles in place ? Lactic acid is improving ? Continue with aggressive pain management ? 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 CT abdomen and pelvis on December 25, 2023, individually reviewed which shows hepatomegaly, elevation of right hemidiaphragm and multiple masses in the liver. Large mass in the region of cecum. Colonoscopy in November 2023 during last admission reported entire examined colon normal though preparation of colon was fair. Mucosal changes noted in the ileum secondary to ileitis . CT-guided liver biopsy reported metastatic poorly differentiated malignant neoplasm of epithelioid and spindle cell features favor high-grade sarcoma. The patient's oncologist Dr. Arellano on 01/05/2024 and the impression was as mentioned above. Mass in the cecum not seen colonoscopy probably it is not an episode alert oriented tumor. Plan: Patient was referred to [facility] in GI surgery. I reiterated the need for early seen in [facility]. I talked to the patient's and set the needs tertiary care for further management of cancer and we are admitting for pain control, nutritional management along with other conservative therapies. Patient has leukocytosis 25.7 thousand. Mild hypochromic microcytic anemia. 2. Essential HTN ? Continue to hold his blood pressure medications ? Will monitor make adjustments as necessary DVT: Lovenox Charges/Coding Visit Charges Inpatient E&M: 21071 Subs Hosp L2
[2024-01-07] MEDS: Midazolam 2 MG/2 ML Syringe IV (13:44)
[2024-01-07] MEDS: fentaNYL 100 MCG/2 ML Ampul IV (13:45)
--- NOTE | 2024-01-07 13:50 | CT_ITS ---
PROCEDURE: CT DIRECTED ABSCESS DRAINAGE, PERITONEAL DATE OF EXAMINATION: January 07, 2024. INDICATION: Male, 58 years old. Complex solid/fluid collection in the right lower quadrant. PHYSICIAN: Zana Amezquita M.D. CONSENT: Written informed consent was obtained having explained the risks, benefits and alternatives in detail with the patient who accepted the risks and agreed to proceed. Laboratory review and clinical assessment was performed. CONSCIOUS SEDATION PROTOCOL: The Drugs used were: 2 mg Versed, IV., and 50 mcg Fentanyl, IV. The sedation time was: 24 minutes. Conscious sedation was started at 1:44 PM and terminated at 2:08 PM. The conscious sedation protocol was independently monitored. RADIATION DOSAGE (If Supplied By Facility): CTDIvol = ( 29.14 ) mGy, DLP = ( 2083.61 ) mGycm. Individualized dose optimization techniques were utilized. TECHNIQUE: CT sections were made through the abdomen and pelvis revealing an abscess in the right lower quadrant. The skin surface was prepped and draped in a sterile fashion. Puncture of this collection was performed initially with a 5 Divehi catheter and fluid was aspirated. Drainage catheter was then inserted into the collection and formed into position. Additional fluid was aspirated for a total of approximately 350 cc of cloudy red fluid. The catheter was sutured into position to allow for continued drainage. Followup CT sections reveals good position of the catheter. CT/Biopsy/Inj or Needle Placement IMPRESSION: 1. CT directed drainage of a fluid collection using CT image guidance and image documentation as described. 2. Conscious Sedation protocol utilized with independent monitoring Electronically Signed: Zana Amezquita MD at 14:29 EDT ,
[2024-01-07] MEDS: Lidocaine 2% (20 ml mdv) 20 ML Vial INFILT (13:58)
[2024-01-07] MEDS: 0.9% Saline Lock 10 ML Syringe IV (14:14)
--- NOTE | 2024-01-07 14:45 | CASEMGMT ---
Social Work- SW met with pt SO, Sara, to further discuss HCPOA papers. SW provided further explanation on agent authority. Pt SO asked SW to verify her HCPOA papers on file; SW verified. Pt was not present in room and SO became very emotional discussing pt new dx. Pt SO reports that they have been together 34 years and she has never witnessed before. Pt SO is concerned that pt will pass before getting an oncology appt, as pt has rapidly declined over the previous two weeks. Pt SO reports that he is unable to eat or drink d/t pressure from mass. SW provided support and empathetic listening. SW provided information on [place]. SW will remain available to follow. NIKIA Gu
--- NOTE | 2024-01-07 15:52 | CON.PCM.ID_ITS ---
Assessment & Plan Assessment/Plan (1) Abdominal pain: PLAN: CT done, plan is for aspiration today. Will put in order for fluid cell count and culture. Cont zosyn. Will follow, thank you (2) Sarcoma: HPI Consult Data Date of Consult: 01/07/24 HPI Narrative Reason for Consultation: abd infection HPI Narrative: KOLE DONAHUE, is a 58 M with metastatic sarcoma, presented with acute worsening of severe diffuse abd pain, not feeling well, no BM for several days. Denies fever or chills. Some nausea. Admitted, started on zosyn, CT done, and plan is for biopsy today. Full ROS performed and neg except as noted above. [facility] Medical History Sleep apnea Hypertension Mass of cecum Metastasis to liver Leukocytosis Intractable abdominal pain Encounter for examination required by Department of Transportation (DOT) Home Medications ?Medication ?Instructions ?Recorded ?Last Taken ?Type hydrochlorothiazide 25 mg tablet 25 mg PO DAILY 12/25/23 Unknown History lisinopril 40 mg tablet 40 mg PO DAILY 12/25/23 Unknown History oxycodone-acetaminophen 5 mg-325 See Rx Instructions PO Q4-6H PRN 01/05/24 Unknown Rx mg tablet Pain 7 days #84 TABLETS sennosides 8.6 mg-docusate sodium 2 tab-cap PO QHS constipation 01/06/24 Unknown History 50 mg tablet (Senokot-S) Allergy/AdvReac Type Severity Reaction Status Date / Time No Known Allergies Allergy Verified 01/06/24 20:51 Family History Mother Cancer Sister Liver failure Social History Smoking Status: Former smoker Tobacco: How many years used: 20 alcohol intake: never Physical Exam Const alert and no apparent distress General Appearance: cooperative HEENT normocephalic and head/scalp atraumatic Eyes PERRL and EOMs intact bilaterally Neck supple and No nodes Resp normal air movement and clear to auscultation bilaterally Cardio regular rate and regular rhythm GI soft to palpation; Negative for non-distended Palpation: tender Extremity General Extremity: Negative for edema Skin no rashes or lesions noted Neuro CN's II-XII intact bilaterally Lab / Micro Data Attestation: I reviewed the patient's lab results. 01/07/24 03:03 01/07/24 03:03 Labs: Laboratory Results - last 24 hr 01/06/24 21:15: WBC 25.7 H, RBC 4.72, Hgb 11.1 L, Hct 36.2 L, MCV 76.7 L, MCH 23.5 L, MCHC 30.7 L, RDW Std Deviation 49.9 H, RDW Coeff of Tiffany 18.5 H, Plt Count 435, MPV 8.8, Immature Gran % (Auto) 1.000 H, Neut % (Auto) 88.5 H, Lymph % (Auto) 4.7 L, [place] % (Auto) 5.1, Eos % (Auto) 0.1, Baso % (Auto) 0.6, Absolute Neuts (auto) 22.8 H, Absolute Lymphs (auto) 1.20, Nucleated RBC % 0, Differential Comment SEE COMMENT, Platelet Estimate SLT INC, Plt Morphology Comment LARGE, RBC Morphology N CHROM, Anisocytosis RARE, Microcytosis RARE, S odium 134 L, Potassium 4.4, Chloride 100, Carbon Dioxide 24.0, Anion Gap 10, BUN 14, Creatinine 0.86, Estim Creat Clear Calc 135.36, Est GFR (MDRD) Af Amer 119, Est GFR (MDRD) Non-Af 98, BUN/Creatinine Ratio 16.4, Glucose 127 H, Lactic Acid 3.7 H*, Calcium 9.0, Total Bilirubin 0.80, AST 47 H, ALT 45, Alkaline Phosphatase 235 H, Total Protein 7.1, Albumin 2.3 L, Globulin 4.8 H, A lbumin/Globulin Ratio 0.5 L, Lipase 21 01/06/24 22:30: Urine Color Yellow, Urine Clarity Clear, Urine pH 5.0, Ur Specific [place] 1.020, Urine Protein 30 H, Urine Glucose (UA) Normal, Urine Ketones 5 H, Urine Occult Blood Negative, Urine Nitrite Negative, Urine Bilirubin 1 H, Urine Urobilinogen 1 H, Ur Leukocyte Esterase 25 H, Urine RBC 0 SEEN, Urine WBC 0-5 SEEN, Ur Squamous Epith Cells 0-5 SEEN, Amorphous Sediment 2+ URATE, Urine Bacteria 0 SEEN, Urine Mucus 0 SEEN 01/07/24 01:41: Lactic Acid 4.1 H* 10/09/24 03:03: WBC 30.9 H*, RBC 4.45 L, Hgb 10.5 L, Hct 34.7 L, MCV 78.0 L, MCH 23.6 L, MCHC 30.3 L, RDW Std Deviation 51.0 H, RDW Coeff of Tiffany 18.6 H, Plt Count 434, MPV 8.7, Immature Gran % (Auto) 1.800 H, Neut % (Auto) 87.0 H, Lymph % (Auto) 5.0 L, [place] % (Auto) 5.8, Eos % (Auto) 0.0, Baso % (Auto) 0.4, Absolute Neuts (auto) 26.9 H, Absolute Lymphs (auto) 1.53, Nucleated RBC % 0, Differential Comment SCANNED, Diff Path Review July, PT 15.9 H, INR 1.3, APTT 34.9, Sodium 130 L, Potassium 4.5, Chloride 99, Carbon Dioxide 21.0, Anion Gap 10, BUN 16, Creatinine 1.11, Estim Creat Clear Calc 103.87, Est GFR (MDRD) Af Amer 88, Est GFR (MDRD) Non-Af 73, BUN/Creatinine Ratio 14.4, Glucose 125 H, Calcium 8.1 L, Total Bilirubin 0.60, AST 46 H, ALT 39, Alkaline Phosphatase 216 H, Total Creatine Kinase 55, Total Protein 6.6, Albumin 2.1 L, Globulin 4.5 H, A lbumin/Globulin Ratio 0.5 L 01/07/24 07:00: Lactic Acid 2.8 H* 01/07/24 11:12: Lactic Acid 2.6 H* 01/07/24 12:24: POC Glucose 112 H Micro: Microbiology 01/07/24 02:50 Mucosa - Nose SARS-CoV-2, Influenza & RSV (PCR) - Final Imaging Radiology Impression Abdomen/Pelvis CT 01/06/24 21:05 IMPRESSION: 1. No change in the extensive bulky masses in the right lobe of the liver. 2. No change in the bulky mass involving the cecum and ascending colon. 3. Slight ascites. 4. Enlarged paradiaphragmatic lymph node anterior to the right lobe of the liver and enlarged periportal lymph nodes. 5. Atelectasis in the right lung base. Electronically Signed: Kole Beth MD at 22:39 EDT , Chest X-Ray 01/07/24 02:30 IMPRESSION: Large right pleural effusion with compressive atelectasis in the right lung base. Electronically Signed: Merced Talley MD at 3:56 EDT , Biopsy CT 01/07/24 13:50 IMPRESSION: 1. CT directed drainage of a fluid collection using CT image guidance and image documentation as described. 2. Conscious Sedation protocol utilized with independent monitoring Electronically Signed: Zana Amezquita MD at 14:29 EDT ,
[2024-01-07 15:54] LABS: Pathologist Review Reviewed
[2024-01-07 22:10] LABS: Body Fluid Mononuclear WBC # 4.318 10^3/uL; Body Fluid Mononuclear WBC % 21.7 %; Body Fluid Polynuclear WBC # 15.534 10^3/uL; Body Fluid Polynuclear WBC % 78.3 %; Red Cell Count/Body Fluid 0.078 10^6/ul
[2024-01-07 22:36] LABS: Body Fluid Total Cells Counted 19.356 10^3/ul
[2024-01-07 22:37] LABS: White Blood Count/Body Fluid 18.804 10^3/uL
[2024-01-07 23:35] LABS: Appearance/Body Fluid CLOUDY; Auto B Fluid Analyzer BKGD Ct COUNTS W/IN LIMITS (W/IN LIMITS); Body Fluid QC Type(s) BF2Q; Color/Body Fluid RED; Lymphocytes 4 %; Macrophages 5 %; Monocytes 3 %; Neutrophil (Segs) 88 %; Source- Body Fluid ASCITES FLUID
[2024-01-08] VITALS (11 sets, daily range): BP systolic 128–134; BP diastolic 74–84; PULSE 100–114; RESP 18–20; TEMP 36.4–36.7; O2SAT 89–96
[2024-01-08] MEDS: HYDROmorphone 1 MG/ML Syringe IV ×6 (03:35→20:08)
[2024-01-08] MEDS: 0.9% Saline Lock 10 ML Syringe IV ×5 (03:36→20:08)
[2024-01-08] MEDS: Piperacil/Tazobactam 3.375 GM in 0.9% Normal Saline (50mL MB+) 50 ML IV ×3 (05:21→22:14)
[2024-01-08] MEDS: Enoxaparin 40 MG/0.4 ML Syringe SC (08:26)
[2024-01-08] MEDS: Senna/Docusate Sodium 1 Tablet 2 TABLET PO ×2 (08:26→22:14)
[2024-01-08] MEDS: Polyethylene Glycol 3350 17 GM PACKET PO ×2 (08:27→22:14)
--- NOTE | 2024-01-08 09:57 | PN.HOSP_ITS ---
Subjective Subjective Doing well, pain is much improved with the drain in place Objective Data Objective Data Vital Signs: Vital Signs Temp Pulse Resp BP Pulse Ox O2 Del Method O2 Flow Rate 97.5 F L 100 18 128/75 H 96 Room Air 2 01/08/24 08:24 01/08/24 08:24 01/08/24 09:00 01/08/24 08:24 01/08/24 09:19 01/08/24 09:19 01/08/24 03:49 Oxygen Flow Rate (L/min) 2 Oxygen Delivery Method Room Air Weight: 325 lb 13.491 oz Body Mass Index (BMI) 48.2 Intake & Output: Intake and Output for Last 24 Hours 01/07/24 01/08/24 01/09/24 03:59 03:59 03:59 Intake Total 1000 / 1000 5807.5 / 5807.5 100 / 100 Output Total 2740 / 2740 475 / 475 Balance 1000 / 1000 3067.5 / 3067.5 -375 / -375 Medical Nutrition Assessment Dietitian: Malnutrition Criteria Met Start: 01/07/24 15:57 Freq: Status: Active Protocol: Document 01/07/24 15:57 SB (Rec: 01/07/24 15:57 SB [id number]) Nutrition Malnutrition Evidence of Malnutrition Exists Yes Malnutrition (severe): Chronic Evidenced By Suboptimal Energy Intake ( Severe),Weight Loss (Severe) Clinical Problem Chronic Disease or Condition Related Malnutrition Etiology severe related to inadequate oral intake, increase energy expenditure d/t metastatic disease, GI dysfunction Signs/Symptoms as evidenced by 8% unintentional weight loss and PO meeting <50% of estimated nutrition needs x 3 months. Status Active Problem Recommendation Dietitian Recommendations/Changes Recommended advanced diet as tolerated to transitional diet with goal of regular diet, d/ t signs and symptoms of malnutrition. Will order vanilla fortified pudding with lunch and dinner. Pt dislikes ensure, but takes boost at home. Adjust ONS, as PO established with meals. Reviewed and approved by Lien Pisano, MS, RD, LD. Lab / Micro Data 01/07/24 03:03 01/07/24 03:03 Labs: Laboratory Results - last 24 hr 01/07/24 03:03: Diff Path Review Reviewed 01/07/24 11:12: Lactic Acid 2.6 H* 01/07/24 12:24: POC Glucose 112 H 01/07/24 21:40: Fluid Source ASCITES FLUID, Fluid Color RED, Fluid Appearance CLOUDY, Fluid WBC 18.804, Fluid RBC 0.078, Fluid Tot Cell Count 19.356, Fld Polynuclear WBCs # 15.534, Fld Polynuclear WBCs % 78.3, Fluid Mononuclear WBCs 4.318, Fld Mononuclear WBCs % 21.7, Fluid Neutrophils 88, Fluid Lymphocytes 4, Fluid Monocytes 3, Fluid Macrophages 5, Fl Pathologist Comment May follow, Fluid Comment 2 SEE COMMENT Micro: Microbiology 01/07/24 02:50 Mucosa - Nose SARS-CoV-2, Influenza & RSV (PCR) - Final Radiography Diagnostic Testing: Radiology Impression Biopsy CT 01/07/24 13:50 IMPRESSION: 1. CT directed drainage of a fluid collection using CT image guidance and image documentation as described. 2. Conscious Sedation protocol utilized with independent monitoring Electronically Signed: Zana Amezquita MD at 14:29 EDT Reading Location ID and State: [facility] / [place] , Service support , Physical Exam Narrative General: Alert, Oriented x3, Cooperative, No apparent distress HEENT: Atraumatic, PERRLA, EOMI, Normocephalic Oral: Moist Mucosa Neck: Supple, No JVD Lungs: Diminished, Normal air movement, No rhonchi, No wheeze, No rales Cardiovascular: Regular rate, Regular Rhythm, Normal S1, Normal S2, No murmurs Abdomen: Soft, mildly tender, distended, liver is enlarged, drain in place in his right lower abdomen Extremities: Edema, Capillary Refill Less than 3 Seconds Skin: No rashes, No breakdown Musculoskeletal: No Tenderness to Palpation of Joints or Extremities Neurological: No focal neurological deficits, Motor Exam 5/5 strength throughout, Sensory exam intact to light touch and pain Psych/Mental Status: Normal Affect, Appropriate Assessment & Plan Assessment/Plan (1) Sarcoma: (2) Abdominal pain: PLAN: Plan 1. Intractable abdominal pain secondary to aggressive sarcoma of the liver ? Continue with IV fluids though given the shortage will slow the rate ? Knowles in place ? Lactic acid is improving, awaiting for repeat lab work today to assess leukocytosis ? Continue with aggressive pain management ? 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 CT abdomen and pelvis on December 25, 2023, individually reviewed which shows hepatomegaly, elevation of right hemidiaphragm and multiple masses in the liver. Large mass in the region of cecum. Colonoscopy in November 2023 during last admission reported entire examined colon normal though preparation of colon was fair. Mucosal changes noted in the ileum secondary to ileitis . CT-guided liver biopsy reported metastatic poorly differentiated malignant neoplasm of epithelioid and spindle cell features favor high-grade sarcoma. The patient's oncologist Dr. Arellano on 01/05/2024 and the impression was as mentioned above. Mass in the cecum not seen colonoscopy probably it is not an episode alert oriented tumor. Plan: Patient was referred to [facility] in GI surgery. I reiterated the need for early seen in [facility]. I talked to the patient's and set the needs tertiary care for further management of cancer and we are admitting for pain control, nutritional management along with other conservative therapies. Patient has leukocytosis 25.7 thousand. Mild hypochromic microcytic anemia. 2. Essential HTN ? Continue to hold his blood pressure medications ? Will monitor make adjustments as necessary DVT: Lovenox Charges/Coding Visit Charges Inpatient E&M: 80369 Subs Hosp L2
[2024-01-08 10:04] LABS: Absolute Lymphocyte Count 1.38 X10^3/uL (0.83-4.51); Absolute Neutrophil Count 25.2 X10^3/uL (2.0-7.7); Basophil# 0.11 X10^3/uL; Basophil% 0.4 % (0-1); Eosinophils% 0.3 % (0-5); Hematocrit 31.2 % (40-54); Hemoglobin 9.4 g/dL (13.0-16.5); Lymphocyte # 1.38 X10^3/ul (0.83-4.51); Lymphocyte % 4.7 % (19-41); Mean Corp Hgb Conc 30.1 g/dL (32-36); Mean Corpuscular Hgb 23.7 pg (27.0-32.0); Mean Corpuscular Volume 78.8 fL (80-94); Mean Platelet Vol. 8.6 fl (6.2-12.0); Monocyte# 1.79 X10^3/uL; Monocyte% 6.1 % (0-10); NRBC Flagged by Analyzer 0 % (0-5); Neutrophil # 25.24 X10^3/uL (2.7-7.7); Neutrophil % 86.8 % (47-70); POSITIVE DIFFERENTIAL YES; Platelet Count 361 K/mm3 (150-450); RBC Distribution Width CV 18.4 % (11.6-14.6); RBC Distribution Width SD 52.8 fl (35.1-43.9); Red Blood Count 3.96 M/mm3 (4.6-6.2); White Blood Count 29.1 K/mm3 (4.4-11.0)
[2024-01-08 10:05] LABS: Differential Indicated SCAN CRITERIA MET
[2024-01-08 10:25] LABS: Anion Gap 8 (5-15); BUN 20 mg/dL (7-18); BUN/Creat Ratio 21.3 RATIO (10-20); Calcium,Total 8.5 mg/dL (8.5-10.1); Chloride 101 mmol/L (98-107); Creatinine, Serum 0.94 mg/dL (0.70-1.30); EST Glomerular Filtration Rate 88 mL/min (>60); Est Glom Filt Rate - Afr Amer 106 mL/min (>60); Estimated Creatinine Clearance 124.52 ml/min; Glucose 135 mg/dL (74-106); Potassium 4.4 mmol/L (3.5-5.1); Sodium Level 133 mmol/L (136-145)
--- NOTE | 2024-01-08 10:27 | PCM.PN.ID ---
Physical Exam Narrative Abd pain much improved, feeling better, no fever, no n/v/d. Abd drain in place. Const alert and no apparent distress General Appearance: cooperative Resp normal air movement and clear to auscultation bilaterally Cardio regular rate and regular rhythm GI soft to palpation GI Narrative: distended, minimal tenderness, drain in place Skin no rashes or lesions noted ID ID: Route of nutrition/ use of supplements: [] Nutritional Intake: [] IV Site: [] Knowles Catheter: [] Assessment & Plan Assessment/Plan (1) Abdominal pain: PLAN: CT done, aspiration in IR 01/07/24. Cell count showed wbc 15k, 88% neut. Gram stain pending. Cont zosyn. Will follow (2) Sarcoma:
[2024-01-08 10:28] LABS: Anisocytosis 2+; Polychromasia RARE
[2024-01-08 10:29] LABS: Ovalocyte 1+
[2024-01-08] MEDS: oxyCODONE 5 MG Tablet PO (16:21)
[2024-01-08] MEDS: 0.9% Normal Saline (100mL Bag) 100 ML 15 ML IV (22:21)
[2024-01-09] VITALS (13 sets, daily range): BP systolic 121–136; BP diastolic 66–76; PULSE 89–104; RESP 18–20; TEMP 36.5–37.1; O2SAT 73–97; BMI 48.2
[2024-01-09] MEDS: HYDROmorphone 1 MG/ML Syringe IV ×7 (00:16→19:44)
[2024-01-09] MEDS: 0.9% Saline Lock 10 ML Syringe IV ×3 (03:31→19:44)
[2024-01-09] MEDS: Piperacil/Tazobactam 3.375 GM in 0.9% Normal Saline (50mL MB+) 50 ML IV ×3 (05:35→21:11)
[2024-01-09 05:46] LABS: Absolute Lymphocyte Count 1.58 X10^3/uL (0.83-4.51); Basophil# 0.11 X10^3/uL; Basophil% 0.4 % (0-1); Eosinophil# 0.32 X10^3/uL; Eosinophils% 1.2 % (0-5); Hematocrit 29.8 % (40-54); Lymphocyte # 1.58 X10^3/ul (0.83-4.51); Lymphocyte % 5.8 % (19-41); Mean Corp Hgb Conc 30.2 g/dL (32-36); Mean Corpuscular Hgb 24.1 pg (27.0-32.0); Mean Corpuscular Volume 79.9 fL (80-94); Mean Platelet Vol. 8.8 fl (6.2-12.0); Monocyte# 1.81 X10^3/uL; Monocyte% 6.6 % (0-10); NRBC Flagged by Analyzer 0 % (0-5); Neutrophil # 22.97 X10^3/uL (2.7-7.7); Neutrophil % 83.8 % (47-70); POSITIVE DIFFERENTIAL YES; Platelet Count 372 K/mm3 (150-450); RBC Distribution Width CV 18.4 % (11.6-14.6); RBC Distribution Width SD 52.9 fl (35.1-43.9); Red Blood Count 3.73 M/mm3 (4.6-6.2); White Blood Count 27.4 K/mm3 (4.4-11.0)
[2024-01-09 06:32] LABS: Differential Indicated SCAN CRITERIA MET
[2024-01-09 07:21] LABS: Differential Comment SCANNED
[2024-01-09 07:22] LABS: Anisocytosis 1+; Ovalocyte 2+; Platelet Estimate ADEQUATE (ADEQ); Polychromasia 1+
[2024-01-09] MEDS: Enoxaparin 40 MG/0.4 ML Syringe SC (10:02)
[2024-01-09] MEDS: Polyethylene Glycol 3350 17 GM PACKET PO (10:02)
[2024-01-09] MEDS: Senna/Docusate Sodium 1 Tablet 2 TABLET PO (10:03)
--- NOTE | 2024-01-09 10:15 | PCM.PN.HOSP ---
Subjective Subjective Doing well, no issues overnight. Abdominal pain is improved Objective Data Objective Data Vital Signs: Vital Signs Temp Pulse Resp BP Pulse Ox O2 Del Method O2 Flow Rate 98.2 F 95 20 H 131/74 H 96 Nasal Cannula 2 01/09/24 03:28 01/09/24 03:28 01/09/24 03:28 01/09/24 03:28 01/09/24 07:47 01/09/24 07:47 01/09/24 07:47 Oxygen Flow Rate (L/min) 2 Oxygen Delivery Method Nasal Cannula Weight: 325 lb 13.491 oz Body Mass Index (BMI) 48.2 Intake & Output: Intake and Output for Last 24 Hours 01/08/24 01/09/24 01/10/24 03:59 03:59 03:59 Intake Total 5807.5 / 5807.5 1700 / 1700 Output Total 2740 / 2740 950 / 950 50 / 50 Balance 3067.5 / 3067.5 750 / 750 -50 / -50 Medical Nutrition Assessment Dietitian: Malnutrition Criteria Met Start: 01/07/24 15:57 Freq: Status: Active Protocol: Document 01/07/24 15:57 SB (Rec: 01/07/24 15:57 SB [id number]) Nutrition Malnutrition Evidence of Malnutrition Exists Yes Malnutrition (severe): Chronic Evidenced By Suboptimal Energy Intake ( Severe),Weight Loss (Severe) Clinical Problem Chronic Disease or Condition Related Malnutrition Etiology severe related to inadequate oral intake, increase energy expenditure d/t metastatic disease, GI dysfunction Signs/Symptoms as evidenced by 8% unintentional weight loss and PO meeting <50% of estimated nutrition needs x 3 months. Status Active Problem Recommendation Dietitian Recommendations/Changes Recommended advanced diet as tolerated to transitional diet with goal of regular diet, d/ t signs and symptoms of malnutrition. Will order vanilla fortified pudding with lunch and dinner. Pt dislikes ensure, but takes boost at home. Adjust ONS, as PO established with meals. Reviewed and approved by Lien Pisano, MS, RD, LD. Lab / Micro Data 01/09/24 05:30 01/08/24 09:55 Labs: Laboratory Results - last 24 hr 01/08/24 09:55: WBC 29.1 H, RBC 3.96 L, Hgb 9.4 L, Hct 31.2 L, MCV 78.8 L, MCH 23.7 L, MCHC 30.1 L, RDW Std Deviation 52.8 H, RDW Coeff of Tiffany 18.4 H, Plt Count 361, MPV 8.6, Immature Gran % (Auto) 1.700 H, Neut % (Auto) 86.8 H, Lymph % (Auto) 4.7 L, [place] % (Auto) 6.1, Eos % (Auto) 0.3, Baso % (Auto) 0.4, Absolute Neuts (auto) 25.2 H, Absolute Lymphs (auto) 1.38, Nucleated RBC % 0, Diff Path Review May foll, Polychromasia RARE, Anisocytosis 2+, Spherocytes PSYCHIATRIC CNS, Ovalocytes 1+, Sodium 133 L, Potassium 4.4, Chloride 101, Carbon Dioxide 24.0, Anion Gap 8, BUN 20 H, Creatinine 0.94, Estim Creat Clear Calc 124.52, Est GFR (MDRD) Af Amer 106, Est GFR (MDRD) Non-Af 88, BUN/Creatinine Ratio 21.3 H, Glucose 135 H, Calcium 8.5 01/09/24 05:30: WBC 27.4 H, RBC 3.73 L, Hgb 9.0 L, Hct 29.8 L, MCV 79.9 L, MCH 24.1 L, MCHC 30.2 L, RDW Std Deviation 52.9 H, RDW Coeff of Tiffany 18.4 H, Plt Count 372, MPV 8.8, Immature Gran % (Auto) 2.200 H, Neut % (Auto) 83.8 H, Lymph % (Auto) 5.8 L, [place] % (Auto) 6.6, Eos % (Auto) 1.2, Baso % (Auto) 0.4, Absolute Neuts (auto) 23.0 H, Absolute Lymphs (auto) 1.58, Nucleated RBC % 0, Differential Comment SCANNED, Diff Path Review May kellee, Platelet Estimate ADEQUATE, Polychromasia 1+, Anisocytosis 1+, Ovalocytes 2+ Micro: Microbiology 01/07/24 03:03 Blood Culture (Wb) - Anticubital Left Blood Culture - Preliminary No growth in 48 hours. 01/07/24 21:40 Fluid - Ascites Gram Stain - Final 01/07/24 21:40 Fluid - Ascites Body Fluid Culture - Preliminary No growth-Final to follow 01/06/24 22:30 Urine, Clean Catch Urine Culture - Final Culture exhibits no growth. 01/07/24 02:50 Mucosa - Nose SARS-CoV-2, Influenza & RSV (PCR) - Final Physical Exam Narrative General: Alert, Oriented x3, Cooperative, No apparent distress HEENT: Atraumatic, PERRLA, EOMI, Normocephalic Oral: Moist Mucosa Neck: Supple, No JVD Lungs: Diminished, Normal air movement, No rhonchi, No wheeze, No rales Cardiovascular: Regular rate, Regular Rhythm, Normal S1, Normal S2, No murmurs Abdomen: Soft, mildly tender, distended, liver is enlarged, drain in place in his right lower abdomen Extremities: Edema, Capillary Refill Less than 3 Seconds Skin: No rashes, No breakdown Musculoskeletal: No Tenderness to Palpation of Joints or Extremities Neurological: No focal neurological deficits, Motor Exam 5/5 strength throughout, Sensory exam intact to light touch and pain Psych/Mental Status: Normal Affect, Appropriate Assessment & Plan Assessment/Plan (1) Sarcoma: (2) Abdominal pain: PLAN: Plan 1. Intractable abdominal pain secondary to aggressive sarcoma of the liver ? Knowles in place ? Leukocytosis is slowly improving, fluid analysis with 18,000 white blood cells with no organisms seen ? Drain has slowed down significantly though there is still some serosanguineous drainage ? Continue with aggressive pain management ? 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 CT abdomen and pelvis on December 25, 2023, individually reviewed which shows hepatomegaly, elevation of right hemidiaphragm and multiple masses in the liver. Large mass in the region of cecum. Colonoscopy in November 2023 during last admission reported entire examined colon normal though preparation of colon was fair. Mucosal changes noted in the ileum secondary to ileitis . CT-guided liver biopsy reported metastatic poorly differentiated malignant neoplasm of epithelioid and spindle cell features favor high-grade sarcoma. The patient's oncologist Dr. Arellano on 01/05/2024 and the impression was as mentioned above. Mass in the cecum not seen colonoscopy probably it is not an episode alert oriented tumor. Plan: Patient was referred to [facility] in GI surgery. I reiterated the need for early seen in [facility]. I talked to the patient's and set the needs tertiary care for further management of cancer and we are admitting for pain control, nutritional management along with other conservative therapies. 2. Essential HTN ? Continue to hold his blood pressure medications ? Will monitor make adjustments as necessary DVT: Randall Charges/Coding Visit Charges Inpatient E&M: 96192 Subs Hosp L2
--- NOTE | 2024-01-09 13:09 | PCM.PN.ID ---
Physical Exam Narrative Feeling a little better, abd still sore at drain site, no fever Const alert and no apparent distress General Appearance: cooperative Resp normal air movement and clear to auscultation bilaterally Cardio regular rate and regular rhythm GI soft to palpation and non-tender; Negative for non-distended Skin no rashes or lesions noted ID ID: Route of nutrition/ use of supplements: [] Nutritional Intake: [] IV Site: [] Knowles Catheter: [] Assessment & Plan Assessment/Plan (1) Abdominal pain: PLAN: CT done, aspiration in IR 01/07/24. Cell count showed wbc 15k, 88% neut. Gram stain neg for organisms, cx neg so far. Cont zosyn. Wbc slightly improved. If he leaves this week, would do 4 days po cipro 500mg bid and augmentin 875mg bid. Will follow (2) Sarcoma:
[2024-01-09 13:19] LABS: Pathologist Review Reviewed
[2024-01-09 13:27] LABS: Pathologist Review Reviewed
--- NOTE | 2024-01-09 14:07 | CASEMGMT ---
DENIA BOLANOS into pt room, pt sister, dtr and son present and sig other came in mid discussion. Pt sitting up in chair and states he feels well. Pt sister states that she has heard back from [facility] and they can not accept pt for care. She states that they are awaiting to hear if [facility] can treat pt. Pt sister states that if [facility] cannot, then pt would like to go home with hospice. They have chosen [facility]. Pt agrees with all that sister is reporting. Family asked if hospitalist could speak with them. She states that they are aware of the severity of the pt disease. DENIA BOLANOS messaged hospitalist who will come speak with pt and family. DENIA BOLANOS to follow.
[2024-01-09] MEDS: oxyCODONE 5 MG Tablet PO ×2 (14:39→21:11)
[2024-01-10] VITALS (8 sets, daily range): BP systolic 114–135; BP diastolic 56–74; PULSE 94–115; RESP 16–20; TEMP 36.7–36.9; O2SAT 93–98; BMI 47.7
[2024-01-10] MEDS: 0.9% Saline Lock 10 ML Syringe IV ×5 (00:06→22:18)
[2024-01-10] MEDS: HYDROmorphone 1 MG/ML Syringe IV ×5 (00:06→13:01)
[2024-01-10] MEDS: oxyCODONE 5 MG Tablet PO ×4 (05:00→18:05)
[2024-01-10] MEDS: Piperacil/Tazobactam 3.375 GM in 0.9% Normal Saline (50mL MB+) 50 ML IV ×3 (06:27→22:18)
[2024-01-10 06:29] LABS: Absolute Neutrophil Count 20.7 X10^3/uL (2.0-7.7); Basophil# 0.11 X10^3/uL; Basophil% 0.4 % (0-1); Eosinophil# 0.34 X10^3/uL; Eosinophils% 1.4 % (0-5); Hematocrit 29.4 % (40-54); Hemoglobin 8.9 g/dL (13.0-16.5); Lymphocyte % 6.4 % (19-41); Mean Corp Hgb Conc 30.3 g/dL (32-36); Mean Corpuscular Hgb 24.3 pg (27.0-32.0); Mean Corpuscular Volume 80.1 fL (80-94); Mean Platelet Vol. 8.9 fl (6.2-12.0); Monocyte# 1.71 X10^3/uL; Monocyte% 6.8 % (0-10); NRBC Flagged by Analyzer 0 % (0-5); Neutrophil # 20.74 X10^3/uL (2.7-7.7); Neutrophil % 82.7 % (47-70); POSITIVE DIFFERENTIAL YES; Platelet Count 374 K/mm3 (150-450); RBC Distribution Width CV 18.3 % (11.6-14.6); Red Blood Count 3.67 M/mm3 (4.6-6.2); White Blood Count 25.1 K/mm3 (4.4-11.0)
[2024-01-10 06:39] LABS: Differential Indicated SCAN CRITERIA MET
[2024-01-10 07:15] LABS: Anion Gap 5 (5-15); BUN 16 mg/dL (7-18); BUN/Creat Ratio 19.2 RATIO (10-20); Calcium,Total 8.8 mg/dL (8.5-10.1); Chloride 98 mmol/L (98-107); Creatinine, Serum 0.83 mg/dL (0.70-1.30); EST Glomerular Filtration Rate 101 mL/min (>60); Est Glom Filt Rate - Afr Amer 122 mL/min (>60); Estimated Creatinine Clearance 140.19 ml/min; Glucose 95 mg/dL (74-106); Potassium 4.8 mmol/L (3.5-5.1); Sodium Level 130 mmol/L (136-145)
[2024-01-10] MEDS: Enoxaparin 40 MG/0.4 ML Syringe SC (07:35)
--- NOTE | 2024-01-10 10:00 | CASEMGMT ---
DENIA BOLANOS updated by hospitalist that patient will need HHC for drain management. DENIA BOLANOS spoke with nursing to start education for drain care. DENIA BOLANOS in to discuss HHC. DENIA BOLANOS provided patient with HHC list in-network with his insurance and geographical area. Patient called sister and on speaker phone to discuss HHC. DENIA BOLANOS reviewed HHC agencies with patient and sister, [facility] DENIA BOLANOS explained that referral would be made but could not confirm acceptance till Friday. Patient and sister voiced understanding and will be able to manage drain till HHC see patient. Patient states that he has been update and walking in the halls and denies need for therapy at discharge. Patient had no further questions or concerns. DENIA BOLANOS sent referral to [facility] and will follow-up on Friday to complete setup.
--- NOTE | 2024-01-10 10:52 | DCINST_ITS ---
Discharge Instructions Diet Discharge Diet: No restrictions Activity Discharge Activity: Return to Normal Activity Dressing / Incision Call your doctor if you observe: Fever of 101 or Higher, Shortness of breath, Dizziness, Fainting spells, Swelling in the ankles, Chest pain and Increased palpitations (irregular heartbeat) Follow Up Care Test Results: Test results from this visit will be discussed in further detail at your follow- up appointment, if applicable. Discharge Plan Admission Admit Date/Time: 01/06/24 23:11 Attending Provider: Aubrey Dixon Primary Care Provider: Pascual Allen Consulting Providers: Abdirahman Henderson; Gato Mrurieta Discharge Orders/Prescriptions Prescriptions: New ciprofloxacin HCl [Cipro] 500 mg tablet 500 mg PO BID 4 Days Qty: 8 0RF amoxicillin-pot clavulanate 875-125 mg tablet 1 tab PO BID 4 Days Qty: 8 0RF oxycodone [OxyContin] 10 mg tablet,oral only,ext.rel.12 hr 10 mg PO BID 5 Days Qty: 10 0RF Continued oxycodone-acetaminophen 5-325 mg tablet See Rx Instructions PO Q4-6H PRN (Reason: Pain) 7 Days Qty: 84 0RF Rx Instructions: 1-2 tablets orally every 4-6 hours PRN; sennosides-docusate sodium [Senokot-S] 8.6-50 mg tablet 2 tab-cap PO QHS No Action hydrochlorothiazide 25 mg tablet 25 mg PO DAILY lisinopril 40 mg tablet 40 mg PO DAILY Referrals / Follow Up: Pascual Allen MD [Primary Care Provider] - Disposition Disposition (needs filled in before D/C Order can be placed): Home Health Service
[2024-01-10] MEDS: Acetaminophen 325 MG Tablet 650 MG PO ×2 (11:00→19:38)
--- NOTE | 2024-01-10 16:03 | PN.HOSP_ITS ---
Subjective Subjective No issues overnight, continues to have some pain uncomfortable with going home today Objective Data Objective Data Vital Signs: Vital Signs Temp Pulse Resp BP Pulse Ox O2 Del Method O2 Flow Rate 98.1 F 97 18 133/71 H 93 Room Air 2 01/10/24 09:45 01/10/24 09:45 01/10/24 09:45 01/10/24 09:45 01/10/24 09:45 01/10/24 09:45 01/10/24 07:42 Oxygen Flow Rate (L/min) 2 Oxygen Delivery Method Room Air Weight: 322 lb 8.58 oz Body Mass Index (BMI) 47.7 Intake & Output: Intake and Output for Last 24 Hours 01/09/24 01/10/24 01/11/24 03:59 03:59 03:59 Intake Total 1700 / 1700 1010 / 1010 650 / 650 Output Total 950 / 950 130 / 130 255 / 255 Balance 750 / 750 880 / 880 395 / 395 Medical Nutrition Assessment Dietitian: Malnutrition Criteria Met Start: 01/07/24 15:57 Freq: Status: Active Protocol: Document 01/07/24 15:57 SB (Rec: 01/07/24 15:57 SB [id number]) Nutrition Malnutrition Evidence of Malnutrition Exists Yes Malnutrition (severe): Chronic Evidenced By Suboptimal Energy Intake ( Severe),Weight Loss (Severe) Clinical Problem Chronic Disease or Condition Related Malnutrition Etiology severe related to inadequate oral intake, increase energy expenditure d/t metastatic disease, GI dysfunction Signs/Symptoms as evidenced by 8% unintentional weight loss and PO meeting <50% of estimated nutrition needs x 3 months. Status Active Problem Recommendation Dietitian Recommendations/Changes Recommended advanced diet as tolerated to transitional diet with goal of regular diet, d/ t signs and symptoms of malnutrition. Will order vanilla fortified pudding with lunch and dinner. Pt dislikes ensure, but takes boost at home. Adjust ONS, as PO established with meals. Reviewed and approved by Lien Pisano, MS, RD, LD. Lab / Micro Data 01/10/24 05:45 01/10/24 05:45 Labs: Laboratory Results - last 24 hr 01/10/24 05:45: WBC 25.1 H, RBC 3.67 L, Hgb 8.9 L, Hct 29.4 L, MCV 80.1, MCH 24.3 L, MCHC 30.3 L, RDW Std Deviation 53.0 H, RDW Coeff of Tiffany 18.3 H, Plt Count 374, MPV 8.9, Immature Gran % (Auto) 2.300 H, Neut % (Auto) 82.7 H, Lymph % (Auto) 6.4 L, [place] % (Auto) 6.8, Eos % (Auto) 1.4, Baso % (Auto) 0.4, Absolute Neuts (auto) 20.7 H, Absolute Lymphs (auto) 1.60, Nucleated RBC % 0, Diff Path Review May foll, Sodium 130 L, Potassium 4.8, Chloride 98, Carbon Dioxide 27.0, Anion Gap 5, BUN 16, Creatinine 0.83, Estim Creat Clear Calc 140.19, Est GFR (MDRD) Af Amer 122, Est GFR (MDRD) Non-Af 101, BUN/Creatinine Ratio 19.2, Glucose 95, Calcium 8.8 Micro: Microbiology 01/07/24 21:40 Fluid - Ascites Gram Stain - Final 01/07/24 21:40 Fluid - Ascites Body Fluid Culture - Preliminary No growth-Final to follow 01/07/24 21:40 Fluid - Ascites Anaerobic Culture - Preliminary No growth in 48 hours. 01/07/24 03:03 Blood Culture (Wb) - Anticubital Left Blood Culture - Preliminary No growth in 48 hours. 01/06/24 22:30 Urine, Clean Catch Urine Culture - Final Culture exhibits no growth. 01/07/24 02:50 Mucosa - Nose SARS-CoV-2, Influenza & RSV (PCR) - Final Physical Exam Narrative General: Alert, Oriented x3, Cooperative, No apparent distress HEENT: Atraumatic, PERRLA, EOMI, Normocephalic Oral: Moist Mucosa Neck: Supple, No JVD Lungs: Diminished, Normal air movement, No rhonchi, No wheeze, No rales Cardiovascular: Regular rate, Regular Rhythm, Normal S1, Normal S2, No murmurs Abdomen: Soft, mildly tender, distended, liver is enlarged, drain in place in his right lower abdomen Extremities: Edema, Capillary Refill Less than 3 Seconds Skin: No rashes, No breakdown Musculoskeletal: No Tenderness to Palpation of Joints or Extremities Neurological: No focal neurological deficits, Motor Exam 5/5 strength throughout, Sensory exam intact to light touch and pain Psych/Mental Status: Normal Affect, Appropriate Assessment & Plan Assessment/Plan (1) Sarcoma: (2) Abdominal pain: PLAN: Plan 1. Intractable abdominal pain secondary to aggressive sarcoma of the liver ? Leukocytosis is slowly improving, fluid analysis with 18,000 white blood cells with no organisms seen ? Drain has slowed down significantly though there is still some serosanguineous drainage ? Continue with aggressive pain management, will discontinue IV Dilaudid and attempt to control pain orally with OxyContin and oxycodone will make adjustments as indicated ? 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 CT abdomen and pelvis on December 25, 2023, individually reviewed which shows hepatomegaly, elevation of right hemidiaphragm and multiple masses in the liver. Large mass in the region of cecum. Colonoscopy in November 2023 during last admission reported entire examined colon normal though preparation of colon was fair. Mucosal changes noted in the ileum secondary to ileitis . CT-guided liver biopsy reported metastatic poorly differentiated malignant neoplasm of epithelioid and spindle cell features favor high-grade sarcoma. The patient's oncologist Dr. Arellano on 01/05/2024 and the impression was as mentioned above. Mass in the cecum not seen colonoscopy probably it is not an episode alert oriented tumor. Plan: Patient was referred to [facility] in GI surgery. I reiterated the need for early seen in [facility]. I talked to the patient's and set the needs tertiary care for further management of cancer and we are admitting for pain control, nutritional management along with other conservative therapies. 2. Essential HTN ? Continue to hold his blood pressure medications ? Will monitor make adjustments as necessary DVT: Lovenox Charges/Coding Visit Charges Inpatient E&M: 19562 Subs Hosp L2
[2024-01-10] MEDS: oxyCODONE HCl Cr 10 MG Tablet PO (20:09)
[2024-01-10] MEDS: SimETHICONE 80 MG Chewable Tablet PO (20:39)
[2024-01-10] MEDS: oxyCODONE 5 MG Tablet 10 MG PO (22:18)
[2024-01-11 02:31] VITALS: BP 116/66; PULSE 106; RESP 18; TEMP 36.8; O2SAT 96
[2024-01-11] MEDS: Acetaminophen 325 MG Tablet 650 MG PO ×2 (02:34→10:49)
[2024-01-11] MEDS: oxyCODONE 5 MG Tablet 10 MG PO ×4 (02:34→14:55)
[2024-01-11] MEDS: Piperacil/Tazobactam 3.375 GM in 0.9% Normal Saline (50mL MB+) 50 ML IV (05:54)
[2024-01-11] MEDS: 0.9% Saline Lock 10 ML Syringe IV (05:54)
[2024-01-11] MEDS: Enoxaparin 40 MG/0.4 ML Syringe SC (07:51)
[2024-01-11] MEDS: Senna/Docusate Sodium 1 Tablet 2 TABLET PO (07:51)
[2024-01-11] MEDS: Polyethylene Glycol 3350 17 GM PACKET PO (07:51)
[2024-01-11 09:00] VITALS: BP 127/67; PULSE 102; RESP 20; TEMP 36.6; O2SAT 94
[2024-01-11] MEDS: oxyCODONE HCl Cr 10 MG Tablet PO (09:12)
[2024-01-11] MEDS: SimETHICONE 80 MG Chewable Tablet PO ×2 (09:12→14:55)
--- NOTE | 2024-01-11 12:26 | PCM.DC.SUM ---
Providers Date of Admission: 01/06/24 Primary Care Physician: Dr. Pascual Allen MD Consultations 01/07/24 05:20 Consult: Infectious Disease Routine Consulting Provider: Abdirahman Henderson Reason for Consult: unclear sepsis/just dehydration. 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 of connective and soft tissue, unspecified (2) Abdominal pain: Status: Acute Code(s): R10.9 - Unspecified abdominal pain Medications at Discharge Home Medications hydrochlorothiazide 25 mg tablet 25 mg PO DAILY 12/25/23 lisinopril 40 mg tablet 40 mg PO DAILY 12/25/23 oxycodone-acetaminophen 5 mg-325 mg tablet See Rx Instructions PO Q4-6H PRN Pain 7 days #84 TABLETS 01/05/24 sennosides 8.6 mg-docusate sodium 50 mg tablet (Senokot-S) 2 tab-cap PO QHS constipation 01/06/24 amoxicillin 875 mg-potassium clavulanate 125 mg tablet 1 tab PO BID 4 days #8 tabs 01/10/24 ciprofloxacin HCl 500 mg tablet (Cipro) 500 mg PO BID 4 days #8 tabs 01/10/24 oxycodone 10 mg tablet,crush resistant,extended release 12 hr (OxyContin) 10 mg PO BID 5 days #10 tabs 01/10/24 oxycodone 10 mg tablet 10 mg PO Q4H PRN pain 4 days #20 tabs 01/11/24 simethicone 80 mg chewable tablet 80 mg PO TID PRN PRN Gas 20 days #60 tabs 01/11/24 Hospital Course Operations None Procedures - (IR placed drain into intra-abdominal fluid collection) Summary of Care Provided Minutes Spent on Discharge: 35 Hospital Course: Per HPI: NADEEN DONAHUE, is a 58 M with recent hospital admission was diagnosed metastatic cancer, cecal mass with liver sarcoma came to ED for intractable abdominal pain. Patient states that he has diffuse abdominal pain for 3 months started from right upper quadrant, anorexia and weight loss about 50 pounds. He passed flatus in the morning today but no BM for 3 days. Denies nausea vomiting or GI bleed. No hematemesis melena or hematochezia. He recently saw oncologist Dr. Arellano on 01/05/2024 and referred to [facility] for further treatment of sarcoma and GI surgery. He was given Percocet for pain control. His is in process of preparation of advanced directive In ED, CT abdomen was done which does not show bowel obstruction or ileus. Vital reviewed patient has tachycardia, tachypnea and mild hypertension. Patient states he has not eaten for 3 days. Patient is being admitted for pain control. Hospital Course: 1. Intractable abdominal pain secondary to aggressive sarcoma of the liver with possible right lower quadrant abscess?58-year-old male presented to the hospital with intractable abdominal pain in the setting of an aggressive liver sarcoma. He had reached out to [facility] however they did not feel that he would be capable of treating it and so they also reach out to [facility] will be able to see them in consultation on [facility] on 15 January. In the meantime he had significant abdominal pain improvement with the drain placed and what is considered to be a right lower quadrant abscess, no organisms were seen but with drainage and antibiotics his white blood cell count did improve. Infectious disease have been consulted and recommends Cipro and Augmentin on discharge for 4 days which has already been filled. In the meantime he is also elected to proceed with hospice care through [facility] though he is still going to attempt to have the [facility] meeting to see if there is any intervention that can be done. Because of his decision to proceed with hospice as well as the chronic pain. His oxycodone was increased to 10 mg p.o. every 4 as needed and he was also provided prescription for OxyContin 10 mg p.o. twice daily scheduled. I did talk to him and his family about needing a rigorous bowel regimen and he will also be given a prescription for simethicone as he said that this had significant relief of his abdominal pain last evening. Discussed with him and his family the plan for discharge today and he expressed understanding the risk benefits going home and would like to go home today on hospice. He was having fairly significant discomfort from his right lower quadrant drain and as this was draining less than 25 cc today and was serous in nature I removed the drain prior to discharge. Physical Exam Narrative General: Alert, Oriented x3, Cooperative, No apparent distress HEENT: Atraumatic, PERRLA, EOMI, Normocephalic Oral: Moist Mucosa Neck: Supple, No JVD Lungs: Diminished, Normal air movement, No rhonchi, No wheeze, No rales Cardiovascular: Regular rate, Regular Rhythm, Normal S1, Normal S2, No murmurs Abdomen: Soft, mildly tender, distended, liver is enlarged Extremities: Edema, Capillary Refill Less than 3 Seconds Skin: No rashes, No breakdown Musculoskeletal: No Tenderness to Palpation of Joints or Extremities Neurological: No focal neurological deficits, Motor Exam 5/5 strength throughout, Sensory exam intact to light touch and pain Psych/Mental Status: Normal Affect, Appropriate Medical Records Data Medical Nutrition Assessment Dietitian: Malnutrition Criteria Met Start: 01/07/24 15:57 Freq: Status: Active Protocol: Document 01/07/24 15:57 SB (Rec: 01/07/24 15:57 SB [id number]) Nutrition Malnutrition Evidence of Malnutrition Exists Yes Malnutrition (severe): Chronic Evidenced By Suboptimal Energy Intake ( Severe),Weight Loss (Severe) Clinical Problem Chronic Disease or Condition Related Malnutrition Etiology severe related to inadequate oral intake, increase energy expenditure d/t metastatic disease, GI dysfunction Signs/Symptoms as evidenced by 8% unintentional weight loss and PO meeting <50% of estimated nutrition needs x 3 months. Status Active Problem Recommendation Dietitian Recommendations/Changes Recommended advanced diet as tolerated to transitional diet with goal of regular diet, d/ t signs and symptoms of malnutrition. Will order vanilla fortified pudding with lunch and dinner. Pt dislikes ensure, but takes boost at home. Adjust ONS, as PO established with meals. Reviewed and approved by Lien Pisano, MS, RD, LD. Weight / BMI Weight Weight: 322 lb 8.58 oz Body Mass Index (BMI) 47.7 ABG / Lab / Microbiology Data 01/10/24 05:45 01/10/24 05:45 Microbiology: Microbiology 01/07/24 21:40 Fluid - Ascites Gram Stain - Final 01/07/24 21:40 Fluid - Ascites Body Fluid Culture - Final No growth aerobically. 01/07/24 21:40 Fluid - Ascites Anaerobic Culture - Preliminary No growth in 48 hours. 01/07/24 03:03 Blood Culture (Wb) - Anticubital Left Blood Culture - Preliminary No growth in 48 hours. 01/06/24 22:30 Urine, Clean Catch Urine Culture - Final Culture exhibits no growth. 01/07/24 02:50 Mucosa - Nose SARS-CoV-2, Influenza & RSV (PCR) - Final D/C Instructions Discharge Diet: No restrictions Call your doctor if you observe: Fever of 101 or Higher, Shortness of breath, Dizziness, Fainting spells, Swelling in the ankles, Chest pain and Increased palpitations (irregular heartbeat) Meaningful Use Info Meaningful Use Meaningful Use Diagnoses (Choose all that apply): None applicable Ischemic Stroke Statin Dosing Therapy Reference: STATIN DOSE THERAPY REFERENCE: * Patients > 75 years receive moderate or high dose statin therapy. * Patients 75 years or YOUNGER should receive HIGH intensity statin dose unless contraindicated. You will be required to document reason for non-treatment if statin daily dose does not meet guidelines. HIGH DOSE STATIN THERAPY DAILY Atorvastatin > than or = to 40 mg Rosuvastatin > than or = to 20 mg Amlodipine + Atorvastatin > than or = to 2.5/40 mg Ezetimibe + Simvastatin 10/80 mg Simvastatin 80mg Discharge Plan Admission Admit Date/Time: 01/06/24 23:11 Attending Provider: Aubrey Dixon Primary Care Provider: Pascual Allen Consulting Providers: Abdirahman Henderson; Gato Murrieta Instructions Additional Instructions / Restrictions: Take MiraLAX as needed for constipation and bloating Discharge Orders/Prescriptions Prescriptions: New ciprofloxacin HCl [Cipro] 500 mg tablet 500 mg PO BID 4 Days Qty: 8 0RF amoxicillin-pot clavulanate 875-125 mg tablet 1 tab PO BID 4 Days Qty: 8 0RF oxycodone [OxyContin] 10 mg tablet,oral only,ext.rel.12 hr 10 mg PO BID 5 Days Qty: 10 0RF oxycodone 10 mg tablet 10 mg PO Q4H PRN (Reason: pain) 4 Days Qty: 20 0RF simethicone 80 mg Tablet,Chewable 80 mg PO TID PRN PRN (Reason: Gas) 20 Days Qty: 60 0RF Continued oxycodone-acetaminophen 5-325 mg tablet See Rx Instructions PO Q4-6H PRN (Reason: Pain) 7 Days Qty: 84 0RF Rx Instructions: 1-2 tablets orally every 4-6 hours PRN; sennosides-docusate sodium [Senokot-S] 8.6-50 mg tablet 2 tab-cap PO QHS No Action hydrochlorothiazide 25 mg tablet 25 mg PO DAILY lisinopril 40 mg tablet 40 mg PO DAILY Referrals / Follow Up: Pascual Allen MD [Primary Care Provider] - Disposition Disposition (needs filled in before D/C Order can be placed): Home Health Service Charges/Coding Visit Charges Inpatient E&M: 64780 Disch Hosp >30min
--- NOTE | 2024-01-11 12:45 | NURSING ---
Percutaneous drain in abdomen removed by Dr Dixon. Incision draining serous fluid, dressing applied. Will monitor dressing d/t high volume of output from incision
--- NOTE | 2024-01-11 12:48 | NURSING ---
aware family/pt requesting referral to [facility], ok per Dr. Dixon and that pt does not need to stay for evaluation prior to discharge.
--- NOTE | 2024-01-11 12:55 | PCA ---
a referral had been made from family to [facility], it was put on hold d/t not being ready to proceed with that option, today at discharge family feels like it would be appropriate to go home with hospice. Call placed to [facility] and spoke with Mj, he sees the referral and that it was on hold, pushed referral through to nurse station agent and will call back.
[2024-01-11 14:50] VITALS: BP 127/69; PULSE 101; RESP 18; TEMP 36.6; O2SAT 95
--- NOTE | 2024-01-12 11:16 | CASEMGMT ---
DENIA CM: [employer] prior auth request received for pt's script for Oxycontin. Prior auth process completed through [employer] and authorization received. Call placed to [facility] and they are preparing script for pt. Call placed to patient, identifying voicemail received and message left notifying him that auth was obtained and [facility]. Noted referral for HH pending and discussion on hospice referral. RN CICI will follow-up to ensure pt is referred to desired level of care. Shara Claudio RN AC
--- NOTE | 2024-01-12 12:07 | CASEMGMT ---
Addendum entered by Susannah Boateng 01/12/24 12:49: TC to [facility], left message to disregard referral made over the weekend as pt was signed up with hospice. Original Note: TC to pt, pt sig other Sara answered the phone. She states that pt had [facility] out a couple of hours after dc yesterday. She states they have made multiple visits through the night and today. Pt is receiving pain medication and now has oxygen in the home. She states pt has an appt on Friday with [facility] that the hospitalist wanted pt to keep, but she is not sure if the patient can tolerate the drive to [facility]. She states she will discuss with the patient today and call and cancel if pt decides he does not want to go to appt. Sara states she or pt sister can cancel the appt. She denies any need with assistance for this. She states pt is being well taken care of and she denies any needs from this RN CM currently.
[2024-01-12 13:37] LABS: Pathologist Review Reviewed
[2024-01-12 13:41] LABS: Pathologist Comment/Body Fluid Reviewed
== END 2024-01-11 17:38 | disposition home health service (06) | DRG 435 ==
LOC: ED 21:30 → MS3 01-07 04:51
PROVIDERS: Internal Medicine Infectious Disease; Admitting Provider Internal Medicine; Emergency Provider Emergency Medicine; PCP Internal Medicine; Visit Provider Family Medicine
DX: C22.4 Other sarcomas of liver (principal); K65.1 Peritoneal abscess; E43 Unspecified severe protein-calorie malnutrition; E87.20 Acidosis, unspecified; E87.1 Hypo-osmolality and hyponatremia; C18.0 Malignant neoplasm of cecum; Z68.42 Body mass index [BMI] 45.0-49.9, adult; D50.9 Iron deficiency anemia, unspecified; I10 Essential (primary) hypertension; E66.01 Morbid (severe) obesity due to excess calories; G89.3 Neoplasm related pain (acute) (chronic); Z87.891 Personal history of nicotine dependence; Z79.899 Other long term (current) drug therapy; R10.9 Unspecified abdominal pain
CPT/HCPCS: 36415; 71045; 74177; 77012; 80048; 80053; 81001; 82550; 82962; 83605; 83690; 85025; 85610; 85730; 87040; 87070; 87075; 87086; 87205; 87631; 88108; 88305; 88313; 88341; 88342; 89050; 94668; 99156; 99284; J7030; J7120; Q9967; A4216; J2405